=== PATIENT | male | born 1955 | race Caucasian/White ===

== ENCOUNTER → 2017-09-05 | Outpatient (CLI) | payer OTHER ==
--- NOTE | 2017-09-05 14:14 | PN ---
PROGRESS NOTE A 61-year-old male patient coming in for a followup regarding obstructive sleep apnea. The patient was last seen in our [facility] in April of 2014. The patient has moderate severe obstructive sleep apnea with an AHI of 27, and patient is currently on CPAP pressure of 12 cm of water. His treatment has been successful over the past 4 years and the patient has not had any major difficulties utilizing his CPAP. His weight has remained stable at 209 pounds and his current BMI is 35.3. He is utilizing CPAP without any major difficulties. He is using a Mirage Quattro full-face mask and he is looking for alternatives. He is still benefitting from the treatment. He is averaging around 6 hours and 54 minutes of CPAP use per night. He is waking up refreshed and alert during the day. No major hypersomnia or sleepiness during the day. Does not fall asleep while driving or while doing routine day-to-day activities. His current Section score is at 3. REVIEW OF SYSTEMS: A 12-point review of system was done. The patient denies any recent weight gain, weight loss. No fever, chills or night sweats. No headaches. No change in mental status. No cough, sputum production. No nausea, vomiting or diarrhea. No abdominal pain. No dysuria, frequency or urgency. No dyspnea, no swelling in the lower extremities. No anxiety or depression. No sleepwalking or sleep talking. No heartburn. PHYSICAL EXAMINATION: BP is 136/81, pulse 73, respiratory rate is 16, temp 98.4 saturation 94% on room air. Weight is 209, height 5, 4, neck size 18 inches, Section score 3, BMI 35.3. GENERAL APPEARANCE: Calm, comfortable. HEAD: Atraumatic, normocephalic. NECK: Supple. There is no JVD. No goiter. No neck masses. Mallampati class IV. LUNGS: Clear to auscultation. HEART: Sounds regular rate and rhythm. Normal S1, S2. No S3. No murmurs. ABDOMEN: Soft, nontender. No organomegaly. EXTREMITIES: No edema. No cyanosis or clubbing. NEUROLOGIC: Patient is alert and oriented x3. There is no focal neurological deficits at this point. PSYCHIATRIC: Negative for any anxiety or depression. SKIN: Negative for any wounds or ulceration. IMPRESSION: 1. Obstructive sleep apnea, moderately severe, currently on CPAP with a pressure of 12 cm of water. The patient continues to receive successful treatment. 2. His mask interface needs to be upgraded. PLAN: 1. Continue CPAP therapy at same level of pressure. 2. Provide the patient an AirFit F20 small-sized full-face mask. 3. Renewal orders were given regarding his supplies. 4. See me back in a year's time or earlier if needed. MMODL / IJN: [id number] /
== END | disposition home or self-care (01) ==
LOC: SLEEP 11:48
PROVIDERS: ATTEND Internal Medicine Critical Care Medicine
DX: G47.33 Obstructive sleep apnea (adult) (pediatric) (principal); Z99.89 Dependence on other enabling machines and devices
CPT/HCPCS: 99211

== ENCOUNTER 2017-09-09 18:44 | Emergency (ER) | payer OTHER ==
[2017-09-09 20:14] LABS: Appearance,Urine Clear (Clear); Bilirubin,Urine Negative (Negative); Blood,Urine Negative (Negative); Color,Urine Light Yellow; Glucose,Urine (UA) Negative (Negative); Ketones,Urine Negative (Negative); Leukocyte Esterase,Urine Negative (Negative); Nitrite,Urine Negative (Negative); PH, Urine 6.5 (5.0-8.0); Protein,Urine Negative (Negative); Specific Gravity,Urine 1.004 (1.001-1.035); Urobilinogen,Urine <2.0 mg/dL (<2.0)
[2017-09-09 20:17] LABS: Basophils % (A) 0 %; Eosinophils # (A) 0.1 k/uL (0-0.7); Eosinophils % (A) 0 %; HCT 41.2 % (39.0-53.0); HGB 13.7 gm/dL (13.0-17.5); Lymphocytes % (A) 6 %; MCH 28.2 pg (25.0-35.0); MCHC 33.3 g/dL (31.0-37.0); MCV 84.7 fL (80.0-100.0); Mean Platelet Volume 6.9; Monocytes # (A) 0.6 k/uL (0-1.0); Monocytes % (A) 3 %; Neutrophils # (A) 16.5 k/uL (1.3-7.7); Neutrophils % (A) 90 %; Platelet Count 218 k/uL (150-450); RBC 4.86 m/uL (4.30-5.90); RDW 13.4 % (11.5-15.5); WBC 18.4 k/uL (3.8-10.6)
[2017-09-09 20:24] LABS: ALT 28 U/L (21-72); AST 21 U/L (17-59); Alkaline Phosphatase 73 U/L (38-126); Anion Gap 11 mmol/L; Blood Urea Nitrogen 11 mg/dL (9-20); Carbon Dioxide 31 mmol/L (22-30); Chloride 94 mmol/L (98-107); Glucose 99 mg/dL (74-99); Potassium 4.6 mmol/L (3.5-5.1); Sodium 136 mmol/L (137-145); Total Bilirubin 0.9 mg/dL (0.2-1.3); Total Protein 7.2 g/dL (6.3-8.2)
--- NOTE | 2017-09-09 20:29 | XR ---
EXAMINATION TYPE: XR chest 2V DATE OF EXAM: 09/09/2017 COMPARISON: NONE HISTORY: Difficulty in breathing. TECHNIQUE: Frontal and lateral views of the chest are obtained. FINDINGS: Underlying emphysematous change is felt present. There is no focal air space opacity, pleu ral effusion, or pneumothorax seen. The cardiac silhouette size is within normal limits. The osseo us structures are intact. IMPRESSION: Chronic emphysematous change without acute pulmonary process.
[2017-09-09 20:30] LABS: INR 1.1 (<1.2); Partial Thromboplastin Time 24.8 sec (22.0-30.0); Prothrombin Time 10.8 sec (9.0-12.0)
[2017-09-09 20:35] LABS: Creatine Kinase 76 U/L (55-170)
[2017-09-09 20:47] LABS: Creatine Kinase MB 0.7 ng/mL (0.0-2.4); Troponin I <0.012 ng/mL (0.000-0.034)
[2017-09-09] MEDS ORDERED: cefTRIAXone 2,000 MG in SODIUM CHLORIDE 0.9% 100 ML IVPB STA (21:42)
[2017-09-09] MEDS ORDERED: cefTRIAXone IN SWFI 2,000 MG/20 ML SYRINGE IVP STA (21:43)
[2017-09-09] MEDS ORDERED: RX INFO: IV CONTRAST WAS GIVEN 1 EACH MISC MISCELLANE PRN (21:49)
--- NOTE | 2017-09-09 22:02 | ED ---
SOB HPI - General Chief Complaint: Shortness of Breath Stated Complaint: SOB/Difficulty Breathing Time Seen by Provider: 09/09/17 19:03 Source: patient Mode of arrival: wheelchair Limitations: no limitations - History of Present Illness Initial Comments: 9 years old gentleman comes in with a fever of 100.8 she said he bit short winded he got some groceries out of 4 and had a stress test done now he is being followed up with the cardiac cath and on he said he has been drinking plenty of fluids he felt he was dehydrated and is also was put on a Lasixcomplaining about some fluid accumulation or swelling of his lower extremities. He denies any headaches no chest pain is short-winded no abdominal pain no frequency urgency dysuria no symptoms of TIA or CVA - Related Data Home Medications Medication Instructions Recorded Confirmed Albuterol Sulfate [Proair Hfa] 1 - 2 puff INHALATION Q6HR PRN 09/07/17 09/09/17 Aspirin 81 mg PO DAILY 09/07/17 09/09/17 Furosemide [Lasix] 20 mg PO DAILY 09/07/17 09/09/17 Metoprolol Tartrate [Lopressor] 100 mg PO DAILY 09/07/17 09/09/17 Simvastatin [Zocor] 20 mg PO DAILY 09/07/17 09/09/17 Tiotropium Br/Olodaterol HCl 1 puff INHALATION RT-BID PRN 09/07/17 09/09/17 [Stiolto Respimat Inhal Prentiss] Verapamil Sr [Isoptin Sr] 240 mg PO DAILY 09/07/17 09/09/17 Previous Rx's Medication Instructions Recorded Amoxicillin/Potassium Clav 1 tab PO Q12HR #20 tab 09/09/17 [Augmentin 875-125 Tablet] Allergies Allergy/AdvReac Type Severity Reaction Status Date / Time No Known Allergies Allergy Verified 09/09/17 19:16 Review of Systems ROS Statement: Those systems with pertinent positive or pertinent negative responses have been documented in the HPI. ROS Other: All systems not noted in ROS Statement are negative. Past Medical History Past Medical History: Asthma, Heart Failure, COPD, Hyperlipidemia, Hypertension History of Any Multi-Drug Resistant Organisms: None Reported Past Surgical History: Appendectomy, Hernia Repair Additional Past Surgical History / Comment(s): vasectomy Past Psychological History: Anxiety Smoking Status: Former smoker Past Alcohol Use History: Rare Past Drug Use History: None Reported General Exam - General Exam Comments Initial Comments: General: The patient is awake and alert, in no distress, and does not appear acutely ill. Skin: Skin is warm and dry and no rashes or lesions are noted. Eye: Pupils are equal, round and reactive to light, extra-ocular movements are intact; there is normal conjunctiva bilaterally. Ears, nose, mouth and throat: There are moist mucous membranes and no oral lesions. Neck: The neck is supple, there is no tenderness or JVD. Cardiovascular: There is a regular rate and rhythm. No murmur, rub or gallop is appreciated. Respiratory: To auscultation bilateral, no wheezing no rhonchi no distress respiratory wilkerson noticed Gastrointestinal: Soft, non-distended, non-tender abdomen without masses or organomegaly noted. There is no rebound or guarding present. Bowel sounds are unremarkable. Back: There is no tenderness to palpation in the midline. There is no obvious deformity. Musculoskeletal: Normal ROM, no tenderness, noticed some +1 edema around both ankles Neurological: CN II-XII intact, Cranial nerves III through XII are intact. There are no obvious motor or sensory deficits. Coordination appears grossly intact. Speech is normal. Psychiatric: Cooperative, appropriate mood & affect, normal judgment. Limitations: no limitations Course Vital Signs 09/09/17 09/09/17 09/09/17 18:49 20:00 20:20 Temperature 100.8 F H Pulse Rate 101 H 96 Respiratory 20 18 18 Rate Blood Pressure 139/87 125/71 O2 Sat by Pulse 92 L 95 Oximetry 09/09/17 21:46 Temperature Pulse Rate 96 Respiratory 17 Rate Blood Pressure 124/71 O2 Sat by Pulse 98 Oximetry KG is sinus tachycardia with a first-degree heart block ventricular rate is 1 or 2 ME interval is 210 QRS duration is 90 QT/QTC 354/461 review of this EKG does not reveal any ST elevation or ST depression noticed some artifact in lead V4 CT angiogram was reviewed, there is no pulmonary embolism considering his positive stress test I offered him admission and observation and will continue the antibiotics of the cultures come back considering his fever and elevated white count patient prefers to go home on antibiotics, he said he is going to stay at her daughter's house she'll keep an eye on him if he needs to come back to come back any or proceed was with his cardiac cath on , respecting patient's wishes on the report him on Augmentin 1 g twice daily for 10 days - Reevaluation(s) Reevaluation #1: She was reassessed at 20/200 at that point he said now he is feeling pain with a deep breaths which he didn't mention that in he said he is short-winded more now and then he was before, at that point CT angiogenesis was ordered to rule out pulmonary embolism and has been running fever, bloody urine cultures were done and Rocephin [address] angios ordered as well 09/09/17 22:15 Medical Decision Making - Lab Data Result diagrams: 09/09/17 19:50 09/09/17 19:50 Lab Results 09/09/17 09/09/17 09/09/17 Range/Units 19:50 19:50 19:50 WBC 18.4 H (3.8-10.6) k/uL RBC 4.86 (4.30-5.90) m/uL Hgb 13.7 (13.0-17.5) gm/dL Hct 41.2 (39.0-53.0) % MCV 84.7 (80.0-100.0) fL MCH 28.2 (25.0-35.0) pg MCHC 33.3 (31.0-37.0) g/dL RDW 13.4 (11.5-15.5) % Plt Count 218 (150-450) k/uL Neutrophils % 90 % Lymphocytes % 6 % Monocytes % 3 % Eosinophils % 0 % Basophils % 0 % Neutrophils # 16.5 H (1.3-7.7) k/uL Lymphocytes # 1.0 (1.0-4.8) k/uL Monocytes # 0.6 (0-1.0) k/uL Eosinophils # 0.1 (0-0.7) k/uL Basophils # 0.0 (0-0.2) k/uL PT (9.0-12.0) sec INR (<1.2) APTT (22.0-30.0) sec Sodium 136 L (137-145) mmol/L Potassium 4.6 (3.5-5.1) mmol/L Chloride 94 L (98-107) mmol/L Carbon Dioxide 31 H (22-30) mmol/L Anion Gap 11 mmol/L BUN 11 (9-20) mg/dL Creatinine 0.80 (0.66-1.25) mg/dL Est GFR (CKD-EPI)AfAm >90 (>60 ml/min/1.73 sqM) Est GFR (CKD-EPI)NonAf >90 (>60 ml/min/1.73 sqM) Glucose 99 (74-99) mg/dL Calcium 9.0 (8.4-10.2) mg/dL Total Bilirubin 0.9 (0.2-1.3) mg/dL AST 21 (17-59) U/L ALT 28 (21-72) U/L Alkaline Phosphatase 73 (38-126) U/L Total Creatine Kinase 76 (55-170) U/L CK-MB (CK-2) 0.7 (0.0-2.4) ng/mL CK-MB (CK-2) Rel Index 0.9 Troponin I <0.012 (0.000-0.034) ng/mL NT-Pro-B Natriuret Pep pg/mL Total Protein 7.2 (6.3-8.2) g/dL Albumin 4.0 (3.5-5.0) g/dL Urine Color Urine Appearance (Clear) Urine pH (5.0-8.0) Ur Specific [place] (1.001-1.035) Urine Protein (Negative) Urine Glucose (UA) (Negative) Urine Ketones (Negative) Urine Blood (Negative) Urine Nitrite (Negative) Urine Bilirubin (Negative) Urine Urobilinogen (<2.0) mg/dL Ur Leukocyte Esterase (Negative) 09/09/17 09/09/17 09/09/17 Range/Units 19:50 19:59 20:00 WBC (3.8-10.6) k/uL RBC (4.30-5.90) m/uL Hgb (13.0-17.5) gm/dL Hct (39.0-53.0) % MCV (80.0-100.0) fL MCH (25.0-35.0) pg MCHC (31.0-37.0) g/dL RDW (11.5-15.5) % Plt Count (150-450) k/uL Neutrophils % % Lymphocytes % % Monocytes % % Eosinophils % % Basophils % % Neutrophils # (1.3-7.7) k/uL Lymphocytes # (1.0-4.8) k/uL Monocytes # (0-1.0) k/uL Eosinophils # (0-0.7) k/uL Basophils # (0-0.2) k/uL PT 10.8 (9.0-12.0) sec INR 1.1 (<1.2) APTT 24.8 (22.0-30.0) sec Sodium (137-145) mmol/L Potassium (3.5-5.1) mmol/L Chloride (98-107) mmol/L Carbon Dioxide (22-30) mmol/L Anion Gap mmol/L BUN (9-20) mg/dL Creatinine (0.66-1.25) mg/dL Est GFR (CKD-EPI)AfAm (>60 ml/min/1.73 sqM) Est GFR (CKD-EPI)NonAf (>60 ml/min/1.73 sqM) Glucose (74-99) mg/dL Calcium (8.4-10.2) mg/dL Total Bilirubin (0.2-1.3) mg/dL AST (17-59) U/L ALT (21-72) U/L Alkaline Phosphatase (38-126) U/L Total Creatine Kinase (55-170) U/L CK-MB (CK-2) (0.0-2.4) ng/mL CK-MB (CK-2) Rel Index Troponin I (0.000-0.034) ng/mL NT-Pro-B Natriuret Pep 616 pg/mL Total Protein (6.3-8.2) g/dL Albumin (3.5-5.0) g/dL Urine Color Light Yellow Urine Appearance Clear (Clear) Urine pH 6.5 (5.0-8.0) Ur Specific [place] 1.004 (1.001-1.035) Urine Protein Negative (Negative) Urine Glucose (UA) Negative (Negative) Urine Ketones Negative (Negative) Urine Blood Negative (Negative) Urine Nitrite Negative (Negative) Urine Bilirubin Negative (Negative) Urine Urobilinogen <2.0 (<2.0) mg/dL Ur Leukocyte Esterase Negative (Negative) Critical Care Time Total Critical Care Time: 30 Critical Care Time: CV 1 years old male had a fever presented with shortness of breath then now his symptoms change bed pain with deep breaths and he has a history of coronary artery disease with a positive stress test considering all these comorbidities we did the CT angios CT angios negative but he still short winded and with his ischemic heart disease on a per min the hospital although he also has elevated white count is very early pneumonia which is not visible on the chest x-ray or a cyst sepsis making him making him feel weak or short winded or ST C ischemic heart disease he is noted be on antibiotics every The cultures back and now will be admitted to Dr. Redmond's service with a cardiology consult Disposition Clinical Impression: Shortness of breath, Leukocytosis Disposition: HOME SELF-CARE Condition: Good Instructions: Dyspnea (ED) Prescriptions: Amoxicillin/Potassium Clav [Augmentin 875-125 Tablet] 1 tab PO Q12HR #20 tab Referrals: Mathew Martinez MD [Primary Care Provider] - 1-2 days
--- NOTE | 2017-09-09 22:54 | CT ---
EXAMINATION TYPE: CT chest angio for PE DATE OF EXAM: 09/09/2017 COMPARISON: NONE HISTORY: Shortness of breath. CT DLP: 487.5 mGycm Automated exposure control for dose reduction was used. CONTRAST: CT Chest for pulmonary embolism performed with with IV Contrast, patient injected with 64 mL of Isovu e 370. FINDINGS: There are 3-D post processed images. There is mild increased interstitial density at the lung bases. There is no evidence of a pulmonary m ass. Heart size is normal. There is no pericardial effusion. There is no pleural effusion. There is a small hiatal hernia. I see no filling defects in the pulmonary arteries. There is no mediastinal adenopathy. There are no hilar masses. There are mediastinal and bronchial lymph nodes that measure less than 1 cm. The bony t horax is intact. Thoracic aorta appears normal without evidence of aneurysm or dissection. Ascending aorta measures 3.5 cm. IMPRESSION: No evidence of pulmonary embolism. Minimal fibrotic changes at the lung bases.
[2017-09-09 23:56] VITALS: BP 124/77; PULSE 100; RESP 20; TEMP 99.4
== END 2017-09-09 23:59 | disposition home or self-care (01) ==
LOC: EC 18:44
DX: D72.829 Elevated white blood cell count, unspecified (principal); I25.9 Chronic ischemic heart disease, unspecified; R06.02 Shortness of breath; E78.5 Hyperlipidemia, unspecified; I25.10 Atherosclerotic heart disease of native coronary artery without angina pectoris; I11.0 Hypertensive heart disease with heart failure; I50.9 Heart failure, unspecified; Z87.891 Personal history of nicotine dependence; Z79.82 Long term (current) use of aspirin; Z79.899 Other long term (current) drug therapy
CPT/HCPCS: 36415; 93005; 83880; 80053; 82550; 82553; 84484; 85025; 85610; 85730; 81003; 87040; 87086; 71046; 71275; 99285; 96374; J0696; Q9967

== ENCOUNTER 2017-09-14 09:12 | Day surgery (SDC) | payer OTHER ==
[2017-09-07 14:28] VITALS: BMI 34.5
[~2017-09-14 09:12] MED LIST: ALPRAZolam 0.25 MG TAB PO PRN; ALPRAZolam 0.5 MG TAB PO PRN; ASPIRIN 325 MG TAB PO STA; ATORVASTATIN 80 MG TAB PO STA; NITROGLYCERIN SL TABS 0.4 MG TAB SUBLINGUAL PRN; SODIUM CHLORIDE 0.9% 1,000 ML in EMPTY BAG 1 BAG IV ONE
[2017-09-14 09:58] VITALS: TEMP 97.6
[2017-09-14 10:18] LABS: Basophils % (A) 1 %; Eosinophils # (A) 0.3 k/uL (0-0.7); Eosinophils % (A) 4 %; HCT 43.3 % (39.0-53.0); HGB 14.3 gm/dL (13.0-17.5); Lymphocytes # (A) 1.3 k/uL (1.0-4.8); Lymphocytes % (A) 20 %; MCH 28.4 pg (25.0-35.0); Monocytes # (A) 0.4 k/uL (0-1.0); Monocytes % (A) 6 %; Neutrophils # (A) 4.4 k/uL (1.3-7.7); Neutrophils % (A) 68 %; Platelet Count 260 k/uL (150-450); RBC 5.03 m/uL (4.30-5.90); RDW 13.5 % (11.5-15.5); WBC 6.5 k/uL (3.8-10.6)
[2017-09-14] MEDS ORDERED: LIDOCAINE 2% INJ 20 MG/ML (20 ML MDV) ONE (11:05)
[2017-09-14] MEDS ORDERED: MIDAZOLAM 2 MG/2 ML VIAL ONE (11:05)
[2017-09-14] MEDS ORDERED: VERAPAMIL 2.5 MG/ML 2 ML AMP ONE (11:05)
[2017-09-14] MEDS ORDERED: MIDAZOLAM 2 MG/2 ML VIAL IVP ONE (11:30)
[2017-09-14] MEDS ORDERED: HEPARIN SODIUM 1,000 UN/ML (10ML VL) ONE (11:32)
[2017-09-14] MEDS ORDERED: LIDOCAINE 2% INJ 20 MG/ML SQ ONE (11:33)
[2017-09-14] MEDS: VERAPAMIL SYRINGE (5 MG/10 ML) INTRAARTER ONE ×2 (11:34→11:49)
[2017-09-14] MEDS ORDERED: IOPAMIDOL-370 125ML BTL INJ ONE (11:50)
[2017-09-14] MEDS ORDERED: IOPAMIDOL-300 50ML BTL INJ ONE (11:50)
[2017-09-14] MEDS ORDERED: RX INFO: IV CONTRAST WAS GIVEN 1 EACH MISC MISCELLANE PRN (12:02)
[2017-09-14] MEDS ORDERED: SODIUM CHLORIDE 0.9% 1,000 ML IV SCH (12:15)
--- NOTE | 2017-09-14 12:36 | CC ---
CARDIAC CATHETERIZATION REPORT DATE OF SERVICE: 09/14/2017 PERFORMING PHYSICIAN: Marc Henson MD, Education Department Chair. PROCEDURE PERFORMED: 1. Selective right and left coronary angiogram. 2. Left heart catheterization. 3. Left ventriculography. INDICATION: This is a pleasant 61-year-old gentleman who was experiencing exertional dyspnea and underwent a CT scan of the chest and that showed heavily calcified coronary arteries. Because of that, he was referred to see me. I did a stress test on the gentleman and that revealed ischemia. Heart catheterization was recommended to rule out any severe underlying coronary artery disease. APPROACH: Right radial artery. COMPLICATION: None. LEVEL OF SEDATION: Moderate with sedation length of 21 minutes. PROCEDURE DESCRIPTION: After obtaining an informed consent, the patient was brought to the [facility]. The right radial artery was cannulated using micropuncture technique, the micropuncture wire passed easily, then I placed a 6-Macanese sheath in the right radial artery. After that, I gave the patient 2 mg of verapamil IA and 10,000 units of heparin IV. Subsequently, I did selective right and left coronary angiogram using JR4 and JL3.5 catheters. Left heart catheterization was performed using 6-Macanese pigtail catheter. After that, I did left ventriculography using a pigtail catheter as well. The procedure was completed without any complication. SELECTIVE CORONARY ANGIOGRAM: 1. The right coronary artery is a large caliber vessel and it is a dominant vessel. The proximal RCA is calcified. It does have mild disease only. The mid RCA is 100% occluded and reconstitutes in the midportion. After the reconstitution, the RCA becomes small to medium caliber vessel with severe disease distally as well. 2. The left main is calcified with mild disease only. It bifurcates into left circumflex and left anterior descending artery. 3. The left circumflex is a large caliber vessel and it is a nondominant vessel. The proximal circ has a lesion appeared to be in the range of 50%. The mid circ appeared to have mild disease only and the circ distally appeared to be angiographically normal. 4. The LAD, the proximal LAD after the bifurcation of a large diag is again chronically occluded. It reconstitutes distally as well. The LAD in the proximal portion gives rise into a large diagonal branch which has mild disease only. Extensive [id number] collaterals were seen filling the RCA distally. HEMODYNAMICS: The left ventricular end-diastolic pressure was about 20 mmHg and no gradient was identified across the aortic valve. Left ventriculography was performed in the BRAUN projection and using a power injection. The left ventricular systolic function is mildly impaired with EF about 45%-50% with global hypokinesia. CONCLUSION: 1. Heavily calcified right and left coronary systems. 2. Chronic total occlusion of the mid right coronary artery. 3. Intermediate disease involving the left circumflex. 4. Chronic total occlusion of the left anterior descending artery as well in the proximal portion. 5. Extensive iycl-dh-ryikp collaterals seen filling the right coronary artery distally. 6. Mildly impaired left ventricular function with ejection fraction between 40% to 45% with global hypokinesia. POSTPROCEDURE MANAGEMENT: 1. Maximize medical treatment. 2. Follow up with the patient. 3. Obtain a consult from Cardiothoracic Surgeon for the evaluation of CABG. DIANA / DAMIÁN: [id number] /
--- NOTE | 2017-09-14 12:42 | LTR ---
DATE OF SERVICE: 09/14/2017 RE: Henry Robles Dear Dr. Martinez; Mr. Henry Robles underwent a heart catheterization and that revealed severe 2- vessel coronary artery disease with chronic total occlusion of the RCA as well as chronic total occlusion of the LAD. I am going to obtain a consult from cardiothoracic surgeon for the evaluation of CABG. If he is turned down to be not a surgical candidate, I will consider doing percutaneous coronary intervention. I want to thank you for allowing me to participate in his care and please do not hesitate to call if you have any question or concern. Sincerely, MD DIANA Umaña / RUSSELN: [id number] /
[2017-09-14 14:47] VITALS: RESP 18
[2017-09-14 17:10] VITALS: BP 142/91
[2017-09-14 17:12] VITALS: PULSE 82
== END 2017-09-14 16:59 | disposition home or self-care (01) ==
LOC: CATHCVL 09:12
PROVIDERS: ATTEND Internal Medicine Interventional Cardiology
DX: I25.110 Atherosclerotic heart disease of native coronary artery with unstable angina pectoris (principal); I25.82 Chronic total occlusion of coronary artery; R94.39 Abnormal result of other cardiovascular function study; E78.00 Pure hypercholesterolemia, unspecified; I10 Essential (primary) hypertension; J44.9 Chronic obstructive pulmonary disease, unspecified; Z82.49 Family history of ischemic heart disease and other diseases of the circulatory system; Z79.82 Long term (current) use of aspirin; Z79.899 Other long term (current) drug therapy; Z87.891 Personal history of nicotine dependence
CPT/HCPCS: 93458; 85025; C1894; J2001; J2250; J1644; Q9967 ×2

== ENCOUNTER → 2017-10-03 | Outpatient (CLI) | payer OTHER ==
[2017-10-03 09:48] LABS: HCT 44.7 % (39.0-53.0); HGB 14.6 gm/dL (13.0-17.5); MCH 28.1 pg (25.0-35.0); MCHC 32.6 g/dL (31.0-37.0); MCV 86.4 fL (80.0-100.0); Mean Platelet Volume 7.1; Platelet Count 213 k/uL (150-450); RBC 5.18 m/uL (4.30-5.90); RDW 13.6 % (11.5-15.5); WBC 5.9 k/uL (3.8-10.6)
[2017-10-03 09:51] LABS: Appearance,Urine Clear (Clear); Bilirubin,Urine Negative (Negative); Blood,Urine Negative (Negative); Color,Urine Light Yellow; Glucose,Urine (UA) Negative (Negative); Ketones,Urine Negative (Negative); Leukocyte Esterase,Urine Negative (Negative); Nitrite,Urine Negative (Negative); Protein,Urine Negative (Negative); Specific Gravity,Urine 1.005 (1.001-1.035); Urobilinogen,Urine <2.0 mg/dL (<2.0)
[2017-10-03 09:56] LABS: Partial Thromboplastin Time 24.8 sec (22.0-30.0); Prothrombin Time 10.2 sec (9.0-12.0)
[2017-10-03 10:17] LABS: ALT 33 U/L (21-72); AST 22 U/L (17-59); Albumin 4.2 g/dL (3.5-5.0); Alkaline Phosphatase 84 U/L (38-126); Anion Gap 13 mmol/L; Blood Urea Nitrogen 14 mg/dL (9-20); Calcium 8.9 mg/dL (8.4-10.2); Carbon Dioxide 31 mmol/L (22-30); Chloride 103 mmol/L (98-107); Cholesterol 111 mg/dL (<200); Glucose 96 mg/dL (74-99); HDL Cholesterol 48 mg/dL (40-60); LDL Cholesterol,Calculated 49 mg/dL (0-99); Magnesium 1.8 mg/dL (1.6-2.3); Potassium 4.7 mmol/L (3.5-5.1); Sodium 147 mmol/L (137-145); Total Bilirubin 0.5 mg/dL (0.2-1.3); Total Protein 7.1 g/dL (6.3-8.2); Triglycerides 72 mg/dL (<150)
[2017-10-03 16:12] LABS: Hepatitis A Antibody IgM Non-Reactive (Non-Reactive); Hepatitis B Core IgM Non-Reactive (Non-Reactive)
[2017-10-03 20:53] LABS: Hemoglobin A1C 5.4 % (4.0-6.0)
== END | disposition home or self-care (01) ==
LOC: LABPAT 08:33
PROVIDERS: ATTEND Surgery
DX: Z01.812 Encounter for preprocedural laboratory examination (principal)
CPT/HCPCS: 80053; 80061; 80074; 81003; 83036; 83735; 84443; 85027; 85610; 85730; 86850; 86900; 86901; 86920; 87070; 87086; 93005; 93922; 93970

== ENCOUNTER 2017-10-16 05:28 | Inpatient (IN) | payer OTHER ==
[~2017-10-16 05:28] MED LIST changes: -ALPRAZolam 0.25 MG TAB PO PRN; -ALPRAZolam 0.5 MG TAB PO PRN; -ASPIRIN 325 MG TAB PO STA; -ATORVASTATIN 80 MG TAB PO STA; +LACTATED RINGERS 1,000 ML IV SCH; +MIDAZOLAM 2 MG/2 ML VIAL IV PRN; +MUPIROCIN 2% OINT 22 GM TUBE NASAL ONE; -NITROGLYCERIN SL TABS 0.4 MG TAB SUBLINGUAL PRN; -SODIUM CHLORIDE 0.9% 1,000 ML in EMPTY BAG 1 BAG IV ONE
[2017-10-16] MEDS ORDERED: PHENYLEPHRINE-0.9% NACL SYG 1 MG/10 ML SYRINGE IV ONE (06:00)
[2017-10-16] MEDS ORDERED: CALCIUM CHLORIDE 100 MG/ML 10 ML SYRINGE IV ONE (06:00)
[2017-10-16] MEDS ORDERED: LACTATED RINGERS 1,000 ML IV ONE (06:00)
[2017-10-16] MEDS ORDERED: DEXTROSE 5% IN WATER 1,000 ML with POTASSIUM CHLORIDE 110 MEQ, MAGNESIUM SULFATE 16 MEQ... IV ONE ×5 (06:00)
[2017-10-16] MEDS ORDERED: PHENYLEPHRINE 40 MG in SODIUM CHLORIDE 0.9% 250 ML IV ONE (06:00)
[2017-10-16] MEDS ORDERED: METOPROLOL TARTRATE 12.5 MG TAB PO ONE (06:00)
[2017-10-16] MEDS ORDERED: NOREPINEPHRIN 4 MG-0.9% NS PMX 4 MG/250 ML ML IV ONE (06:00)
[2017-10-16] MEDS ORDERED: PROTAMINE SULFATE 250 MG in EMPTY BAG 1 BAG IV ONE (06:00)
[2017-10-16] MEDS ORDERED: ALBUMIN HUMAN 5% 500 ML IVPB ONE (06:00)
[2017-10-16] MEDS ORDERED: ceFAZolin 2,000 MG in SODIUM CHLORIDE 0.9% 30 ML IVPB ONE ×4 (06:00)
[2017-10-16] MEDS ORDERED: HEPARIN SODIUM 1,000 UN/ML (10ML VL) IV ONE (06:00)
[2017-10-16] MEDS ORDERED: NITROGLYCERIN-D5W PMX 25 MG/250 ML BTL IV ONE (06:00)
[2017-10-16] MEDS ORDERED: HEPARIN SODIUM,PORCINE 5,000 UNIT in SODIUM CHLORIDE 0.9% 500 ML IV ONE (06:00)
[2017-10-16] MEDS ORDERED: SODIUM CHLORIDE 0.9% 1,000 ML IV ONE (06:00)
[2017-10-16] MEDS ORDERED: CLEVIDIPINE BUTYRATE 25 MG in EMPTY BAG 1 BAG IV ONE (06:00)
[2017-10-16] MEDS ORDERED: MANNITOL 25% 12.5 GM/50 ML VIAL IV ONE (06:00)
[2017-10-16] MEDS ORDERED: SODIUM BICARB 8.4% 50 ML SYR (1 MEQ/ML) IV ONE (06:00)
[2017-10-16] MEDS ORDERED: ASPIRIN 325 MG TAB PO ONE (06:00)
[2017-10-16] MEDS ORDERED: DEXTROSE 5% IN WATER 1,000 ML with POTASSIUM CHLORIDE 25 MEQ, SODIUM CHLORIDE 2.5MEQ/ML... IRRIGATION ONE ×6 (06:00)
[2017-10-16] MEDS ORDERED: MAGNESIUM SULFATE MG 500 MG/ML VIAL IV ONE (06:00)
[2017-10-16] MEDS ORDERED: CHLORHEXIDINE GLUCONATE 15 ML CUP MUCOUS MEM ONE (06:00)
[2017-10-16] MEDS ORDERED: INSULIN REGULAR 100 UNIT in SODIUM CHLORIDE 0.9% 100 ML IV ONE (06:00)
[2017-10-16] MEDS ORDERED: TRANEXAMIC ACID 2,000 MG in SODIUM CHLORIDE 0.9% 180 ML IV ONE (06:00)
[2017-10-16] MEDS ORDERED: ATORVASTATIN 10 MG TAB PO ONE (06:00)
[2017-10-16] MEDS ORDERED: PROTAMINE SULFATE 10 MG/ML 25 ML VIAL IV ONE ×2 (06:00→08:03)
[2017-10-16] MEDS ORDERED: ALBUMIN HUMAN 25% 50 ML IV ONE (06:00)
[2017-10-16] MEDS ORDERED: PAPAVERINE 360 MG in SODIUM CHLORIDE 0.9% 90 ML IV ONE (06:00)
[2017-10-16] MEDS ORDERED: PROPOFOL 1,000 MG/100 ML VIAL IV ONE (06:00)
[2017-10-16] MEDS ORDERED: NITROGLYCERIN-D5W PMX 50 MG in DEXTROSE/WATER 1 250ML.BAG IV ONE (06:00)
[2017-10-16] MEDS ORDERED: ELECTROLYTE-R (PH 7.4) 1,000 ML IV.SOLN IV ONE (08:03)
[2017-10-16] MEDS ORDERED: ALBUMIN HUMAN 5% 500 ML VIAL IVPB ONE (08:03)
[2017-10-16] MEDS ORDERED: HEPARIN SODIUM,PORCINE 5,000 UNIT/ML 1 ML VIAL ONE (08:03)
[2017-10-16] MEDS ORDERED: VECURONIUM 10 MG VIAL IV ONE (08:03)
[2017-10-16] MEDS ORDERED: LACTATED RINGERS 1,000 ML BAG IV ONE (08:03)
[2017-10-16] MEDS ORDERED: fentaNYL (PF) 50 MCG/ML 50 ML VIAL ONE (08:03)
[2017-10-16] MEDS ORDERED: PROPOFOL 10 MG/ML 20 ML VIAL IV ONE (08:03)
[2017-10-16] MEDS ORDERED: MAGNESIUM SULFATE 4 MEQ/ML 2 ML VIAL ONE (08:03)
[2017-10-16] MEDS ORDERED: TRANEXAMIC ACID 1,000 MG/10 ML VIAL ONE (08:03)
[2017-10-16] MEDS ORDERED: HEPARIN 10000 UNIT/ML IV ONE (08:03)
[2017-10-16] MEDS ORDERED: SODIUM CHLORIDE 0.9% 250 ML BAG ONE (08:03)
[2017-10-16] MEDS ORDERED: MIDAZOLAM 2 MG/2 ML VIAL ONE (08:03)
[2017-10-16] MEDS ORDERED: LIDOCAINE 2% SYG (PF) 100 MG/5 ML ONE (08:03)
[2017-10-16 08:36] LABS: ABG Base Excess 3.8 mmol/L; ABG HCO3 28 mmol/L (21-25); ABG PCO2 42 mmHg (35-45); ABG PH 7.44 (7.35-7.45); ABG PO2 401 mmHg (83-108); ABG Potassium Whole Blood 3.4 mmol/L (3.4-4.5); ABG Sodium Whole Blood 142 mmol/L (135-146); ABG TCO2 30 mmol/L (19-24)
[2017-10-16] MEDS: ceFAZolin 1,000 MG in SODIUM CHLORIDE 0.9% IRRIGATIO 1,000 ML IRRIGATION ONE ×3 (09:21→13:08)
[2017-10-16 10:44] LABS: ABG Base Excess 4.4 mmol/L; ABG HCO3 29 mmol/L (21-25); ABG PCO2 43 mmHg (35-45); ABG PH 7.44 (7.35-7.45); ABG PO2 386 mmHg (83-108); ABG Potassium Whole Blood 3.6 mmol/L (3.4-4.5); ABG Sodium Whole Blood 141 mmol/L (135-146); ABG TCO2 30 mmol/L (19-24)
[2017-10-16 11:18] LABS: ABG HCO3 27 mmol/L (21-25); ABG PCO2 45 mmHg (35-45); ABG PH 7.39 (7.35-7.45); ABG PO2 336 mmHg (83-108); ABG Potassium Whole Blood 3.5 mmol/L (3.4-4.5); ABG Sodium Whole Blood 138 mmol/L (135-146); ABG TCO2 29 mmol/L (19-24)
[2017-10-16 11:48] LABS: ABG Base Excess 3.2 mmol/L; ABG HCO3 27 mmol/L (21-25); ABG PCO2 38 mmHg (35-45); ABG PH 7.47 (7.35-7.45); ABG PO2 297 mmHg (83-108); ABG Potassium Whole Blood 4.4 mmol/L (3.4-4.5); ABG Sodium Whole Blood 138 mmol/L (135-146); ABG TCO2 28 mmol/L (19-24)
[2017-10-16 12:19] LABS: ABG Base Excess 2.5 mmol/L; ABG HCO3 27 mmol/L (21-25); ABG PCO2 44 mmHg (35-45); ABG PH 7.41 (7.35-7.45); ABG PO2 343 mmHg (83-108); ABG Potassium Whole Blood 4.2 mmol/L (3.4-4.5); ABG Sodium Whole Blood 139 mmol/L (135-146); ABG TCO2 29 mmol/L (19-24)
[2017-10-16 12:52] LABS: ABG Base Excess 1.8 mmol/L; ABG HCO3 27 mmol/L (21-25); ABG PCO2 47 mmHg (35-45); ABG PH 7.37 (7.35-7.45); ABG PO2 315 mmHg (83-108); ABG Potassium Whole Blood 4.6 mmol/L (3.4-4.5); ABG Sodium Whole Blood 138 mmol/L (135-146); ABG TCO2 29 mmol/L (19-24)
[2017-10-16 14:06] LABS: ABG Base Excess 0.6 mmol/L; ABG HCO3 27 mmol/L (21-25); ABG PCO2 51 mmHg (35-45); ABG PH 7.33 (7.35-7.45); ABG PO2 388 mmHg (83-108); ABG Potassium Whole Blood 3.8 mmol/L (3.4-4.5); ABG Sodium Whole Blood 142 mmol/L (135-146); ABG TCO2 28 mmol/L (19-24)
[2017-10-16] MEDS ORDERED: Magnesium Replacement Protocol 1 EACH MISC MISCELLANE PRN (14:32)
[2017-10-16] MEDS ORDERED: PROPOFOL 1,000 MG in EMPTY BAG 1 BAG IV SCH (14:32)
[2017-10-16] MEDS ORDERED: METOCLOPRAMIDE 5 MG/ML 2 ML VIAL IVP PRN (14:32)
[2017-10-16] MEDS ORDERED: ALBUMIN HUMAN 5% 250 ML in EMPTY BAG 1 BAG IVPB PRN (14:32)
[2017-10-16] MEDS ORDERED: Phosphorus Replacement Protoco 1 EACH MISC MISCELLANE PRN (14:32)
[2017-10-16] MEDS ORDERED: BENZOCAINE/MENTHOL LOZENG 1 EACH LOZENGE MUCOUS MEM PRN (14:32)
[2017-10-16] MEDS ORDERED: DEXTROSE 5% IN WATER 100 ML with AMIODARONE 150 MG IV PRN (14:32)
[2017-10-16] MEDS ORDERED: NITROGLYCERIN-D5W PMX 50 MG in DEXTROSE/WATER 1 250ML.BAG IV SCH (14:32)
[2017-10-16] MEDS ORDERED: Potassium Replacement Protocol 1 EACH MISC MISCELLANE PRN (14:32)
[2017-10-16] MEDS ORDERED: ONDANSETRON 4 MG/2 ML VIAL IVP PRN (14:32)
[2017-10-16] MEDS ORDERED: INSULIN REGULAR 100 UNIT in SODIUM CHLORIDE 0.9% 100 ML IV SCH (14:32)
[2017-10-16] MEDS ORDERED: CALCIUM CHLORIDE 1,000 MG in SODIUM CHLORIDE 0.9% 100 ML IV PRN (14:32)
[2017-10-16] MEDS ORDERED: MORPHINE SULFATE 4 MG/ML SYRINGE IVP PRN (14:32)
[2017-10-16 15:09] LABS: Glucose,Whole Blood 102 mg/dL (75-99)
[2017-10-16 15:24] LABS: INR 1.4 (<1.2); Partial Thromboplastin Time 39.5 sec (22.0-30.0); Prothrombin Time 12.9 sec (9.0-12.0)
--- NOTE | 2017-10-16 15:24 | OP ---
OPERATIVE REPORT DATE OF SURGERY: 10/16/2017. SURGEON: Dr. Kathy Odom. PARALEGAL SUPERVISOR: Lefty Beltran and Agustin SWENSON. PREOPERATIVE DIAGNOSES: 1. Triple-vessel coronary artery disease. Totally occluded right coronary artery and left anterior descending artery. 2. Mild to moderate left ventricular dysfunction. 3. Chronic obstructive pulmonary disease. 4. Asthma. 5. Hypertension. 6. Hyperlipidemia. POSTOPERATIVE DIAGNOSES: 1. Triple-vessel coronary artery disease. 2. Totally occluded right coronary artery and left anterior descending artery. 3. Mild to moderate left ventricular dysfunction. 4. Chronic obstructive pulmonary disease. 5. Asthma. 6. Hypertension. 7. Hyperlipidemia. PROCEDURE: 1. Triple coronary artery bypass grafting using the left internal mammary artery to the left anterior descending artery, reverse saphenous vein graft from the aorta to the posterior descending artery, reverse saphenous vein graft from the aorta to the 2nd obtuse marginal artery. 2. Endoscopic harvesting of left greater saphenous vein. 3. Intraoperative transesophageal echocardiogram and epiaortic scanning. 4. Intraoperative graft flow measurements using the SquareClock-Stim system. INDICATION FOR SURGERY: The patient is a 61-year-old gentleman who was worked up for worsening dyspnea on exertion with a stress test that showed anteior ischemia. He had a CTA for the coronary vessels that showed extensive calcification. Cardiac catheterization followed and that showed a totally occluded collateralized left anterior descending artery after the takeoff of a large diagonal artery that had mild disease in it and a totally occluded right coronary artery. The circumflex system showed what seems to be 50% stenosis proximally. However, in view of the extensive calcification, will plan on bypassing it. The STS risk was discussed with the patient and daughter. They understood and agreed to proceed. The patient was optimized by the Pulmonary service before surgery. DESCRIPTION OF THE PROCEDURE: The patient in the preoperative holding area, a right internal jugular [place]- Yael catheter and a right radial arterial line were placed. His PA pressure was normal and he had a normal acceptable cardiac index. Subsequently he was brought to the operating room where general endotracheal anesthesia was induced uneventfully. Longo catheter was inserted. He received 2 g of cefazolin intravenously. The chest, abdomen and both lower extremities were prepped and draped using ChloraPrep. Ioban was used to cover the skin. Transesophageal echocardiogram confirmed the preoperative finding of mild-to- moderate left ventricular function with inferior hypokinesia. There was no significant mitral regurgitation. A midline sternotomy was performed and had to use a minimal amount of bone wax on the manubrium as it was profusely bleeding at the end of the case. Otherwise, bone wax was used. Bone was reasonably dense. The left hemisternum was elevated and the left internal mammary artery was harvested in a semi- skeletonized fashion. The left pleura was intentionally opened in this process and was drained with a 28-Greek chest tube. There was an extensive amount of fat in the mediastinum and in the mammary pedicle. The right pleura remained intact. In the same setting, the left greater saphenous vein was harvested endoscopically from groin to above ankle level after administration of 1500 units of heparin. The branches were tied. The leg incisions were closed over a drain. Mediastinal fat was transected between 2 ties and epiaortic scanning revealed concentric intimal thickening but no protruding atheroma in the ascending aorta. Pericardium was opened in an inverted T-fashion and a pericardial cradle was created. There were adhesions between the anterior aorta and the pericardium, which were lysed with low-level Bovie. Finding included soft aorta and a normal size heart. There were fibrotic changes seen in the anterior wall and inferior wall, but no obvious thinning. After systemic heparinization and after placement of respective pledgeted pursestring aortic cannulation with a 21-Greek soft flow cannula, venous cannulation with a dual stage cannula via the right atrial appendage were performed. Antegrade as well as retrograde cardioplegia catheter were placed. Cardio pulmonary bypass was initiated and patient's temperature was allowed to drift down to 34 C. We looked at the targets and it appeared that the second obtuse marginal artery, the posterior descending artery and the mid left anterior descending artery would be the sites for bypass. The right coronary artery was heart up to its bifurcation. The left anterior descending artery was intramyocardial and had also fibrotic changes around it. It was found quite deep in the tissues. The mammary artery was clipped distally before its bifurcation and transected. Had an excellent pulsatile flow in it and was around 1.5 mm in diameter thin- walled. The vein appeared to be of good quality around 4 mm in diameters. The aorta was clamped and myocardial protection was achieved with initial dose of 500 mL of antegrade cold blood cardioplegia followed by 500 mL of retrograde cold blood cardioplegia. All subsequent doses were given retrograde as well as via the constructed vein graft to the posterior descending artery. This was done in an effort to ensure optimal right ventricular protection. The first distal anastomosis was between a segment of reverse saphenous vein graft and the posterior descending artery in its proximal to mid aspect. It was thin-walled around 1.5 mm in diameter. That vein as mentioned above was connected to the side arm of the retrograde cardioplegia delivery system. The second distal anastomosis was between another segment of vein and the second obtuse marginal artery. That artery was around 1.75 mm in diameter thin- walled. There was excellent flow into the vein graft. The third distal anastomosis was in the left internal mammary artery and the mid to distal aspect of the left anterior descending artery which was thin-walled. That artery was opened and a deep intramyocardial position and there was an injury to the posterior wall which I repaired using 2 sutures of Prolene 80 passed from inside to the outside and tied outside the vessel. Subsequently the left internal mammary artery was anastomosed to an extended arteriotomy using Prolene 70 in continuous fashion. FloSeal was applied to this anastomosis. Satisfied with the distal anastomosis attention was moved at performing the 2 proximal anastomosis. Rewarming was started. 2 buttons of 5 mm each were pushed out of the ascending aorta and the 2 proximal anastomosis constructed using Prolene 60 in continuous fashion. Patient was given lidocaine and magnesium and de-airing maneuvers were pursued before unclamping the aorta. He regained spontaneous sinus rhythm. Overall hemostasis was satisfactory. After a period of reperfusion we weaned off cardiac. Bypass without the need of any inotropic or vasopressor support. FRANKI showed improved left ventricle function and in particular the inferior wall. Graft flow measurement of the vein going to the posterior descending artery showed a flow of 98 mL/m, pulsatility index of 2.7 and diastolic filling of 49% . The flow into the vein graft going to the second obtuse marginal artery was 100 mL/m, pulsatility index of 1.4 and diastolic filling of 67%. The flow into the left internal mammary artery to the left anterior descending artery was 23 mL/m, pulsatility index of 1.6 and diastolic filling of 66% showing well- functioning grafts. With that test dose than full dose protamine was given. Decannulation followed. The antegrade cardioplegia site was reinforced with another pledgeted Prolene 40. The venous cannulation site was oversewn with a running Prolene 40. 2 monopolar atrial pacer wires were affixed to the respective pursestrings on the right atrium and one bipolar ventricular pacing wire was driven via the inferior aspect of the right ventricle. One 36-Greek chest tube was placed substernally. A groove was made in the left pleuropericardial fat to accommodate the mammary artery medial to the lung and away from the posterior sternal table. After ensuring adequate hemostasis and hemodynamics and after correct sponge instrument and needle count the sternum was appreciated using 5 [id number] [place] cables after interposing fibrillar between the sternal edges. Thorough irrigation with cefazolin followed. The rest of the closure proceeded in layers. Skin glue was applied. Patient did not receive any blood bank product but received 300 mL of Cell Saver blood. Was transferred to the ICU on no drips except low dose nitroglycerin with a cardiac index of 2.8, pulmonary pressure 30/15 and in normal sinus rhythm at 67 with a normal EKG. MMODL / IJN: [id number] / JENNIFER
--- NOTE | 2017-10-16 15:25 | XR ---
EXAMINATION TYPE: XR chest 1V portable DATE OF EXAM: 10/16/2017 COMPARISON: 09/27/2017 HISTORY: Postop cardiac surgery TECHNIQUE: Single frontal view of the chest is obtained. FINDINGS: ET tube approximately 5.5 cm above the marni and there is an NG tube. [place]-Yael catheter and chest tube noted. Epicardial lead suggested. Bilateral areas of consolidation are seen. No sizabl e pneumothorax or overt failure. Postsurgical changes noted. IMPRESSION: 1. Bilateral areas of infiltrate. 2. Postsurgical changes.
[2017-10-16] MEDS ORDERED: AMIODARONE 450 MG in DEXTROSE 5% IN WATER 250 ML IV PRN ×2 (15:29)
[2017-10-16 15:31] LABS: Basophils % (A) 0 %; Eosinophils # (A) 0.1 k/uL (0-0.7); Eosinophils % (A) 1 %; HCT 22.4 % (39.0-53.0); Lymphocytes # (A) 0.9 k/uL (1.0-4.8); Lymphocytes % (A) 14 %; MCH 28.4 pg (25.0-35.0); MCHC 33.6 g/dL (31.0-37.0); MCV 84.6 fL (80.0-100.0); Mean Platelet Volume 8.1; Monocytes # (A) 0.3 k/uL (0-1.0); Monocytes % (A) 5 %; Neutrophils # (A) 5.2 k/uL (1.3-7.7); Neutrophils % (A) 80 %; RBC 2.64 m/uL (4.30-5.90); RDW 13.7 % (11.5-15.5); WBC 6.4 k/uL (3.8-10.6)
[2017-10-16 15:38] LABS: HGB 7.5 gm/dL (13.0-17.5)
[2017-10-16 15:49] LABS: Glucose,Whole Blood 97 mg/dL (75-99)
[2017-10-16 15:52] LABS: ABG Base Excess 2.1 mmol/L; ABG HCO3 27 mmol/L (21-25); ABG PCO2 45 mmHg (35-45); ABG PH 7.39 (7.35-7.45); ABG PO2 384 mmHg (83-108); ABG TCO2 29 mmol/L (19-24)
[2017-10-16 15:55] LABS: Platelet Count 70 k/uL (150-450)
[2017-10-16 15:56] LABS: Ionized Calcium 4.5 mg/dL (4.5-5.3)
[2017-10-16 16:00] LABS: ALT 26 U/L (21-72); AST 36 U/L (17-59); Albumin 3.1 g/dL (3.5-5.0); Alkaline Phosphatase 28 U/L (38-126); Anion Gap 10 mmol/L; Blood Urea Nitrogen 12 mg/dL (9-20); Calcium 7.4 mg/dL (8.4-10.2); Carbon Dioxide 27 mmol/L (22-30); Chloride 107 mmol/L (98-107); Glucose 96 mg/dL (74-99); Magnesium 2.5 mg/dL (1.6-2.3); Potassium 4.2 mmol/L (3.5-5.1); Sodium 144 mmol/L (137-145); Total Bilirubin 0.6 mg/dL (0.2-1.3); Total Protein 4.7 g/dL (6.3-8.2)
[2017-10-16] MEDS: LACTATED RINGERS 1,000 ML IV SCH (16:01)
[2017-10-16] MEDS: CLEVIDIPINE BUTYRATE 25 MG in EMPTY BAG 1 BAG IV SCH ×3 (16:01→19:43)
[2017-10-16] MEDS: ceFAZolin IN SWFI 2 GM/20 ML SYRINGE IVP SCH ×2 (16:08→23:51)
[2017-10-16] MEDS: IPRATROPIUM-ALBUTEROL 3 ML NEB INHALATION SCH ×2 (16:34→20:35)
[2017-10-16 16:55] LABS: Glucose,Whole Blood 94 mg/dL (75-99)
[2017-10-16 18:05] LABS: Glucose,Whole Blood 105 mg/dL (75-99)
[2017-10-16] MEDS: ACETAMINOPHEN IV (For NPO) 1,000 MG in EMPTY BAG 1 BAG IVPB SCH ×2 (18:07→23:49)
[2017-10-16 18:20] LABS: Basophils % (A) 0 %; Eosinophils % (A) 0 %; HCT 26.1 % (39.0-53.0); HGB 8.6 gm/dL (13.0-17.5); Lymphocytes # (A) 0.8 k/uL (1.0-4.8); Lymphocytes % (A) 10 %; MCH 28.4 pg (25.0-35.0); MCHC 32.9 g/dL (31.0-37.0); MCV 86.1 fL (80.0-100.0); Mean Platelet Volume 7.2; Monocytes # (A) 0.4 k/uL (0-1.0); Monocytes % (A) 5 %; Neutrophils # (A) 6.7 k/uL (1.3-7.7); Neutrophils % (A) 83 %; RBC 3.03 m/uL (4.30-5.90); RDW 13.7 % (11.5-15.5)
[2017-10-16 18:21] LABS: Platelet Count 89 k/uL (150-450)
--- NOTE | 2017-10-16 18:42 | P.PN ---
Progress Note - Text Procedure performed: Transesophageal echocardiography Indication for the procedure: Coronary artery bypass graft surgery, ischemia monitoring, assessment of valvular function, intracardiac air monitoring, assessment of regional wall motion abnormalities and hemodynamic monitoring. Probe insertion: Under general anesthesia, uneventful. Pre-bypass findings: Left ventricle normal in dimension and LV ejection fraction is approximately 55 - 60%. Mild inferoseptal hypokinesia present. Left atrium Normal in size. No thrombus seen in the appendage. Right atrium normal in size. No patent foramen ovale or ASD seen. Right ventricle normal in structure and function. Aortic valve appears to be normal .No Aortic Regurgitation seen. Aortic valve area by continuity equation is 1.7 cm Mitral valve normal in anatomy. Trivial mitral regurgitation seen. Trivial tricuspid regurgitation seen. Pulmonic valve appears to be normal. Descending aorta grade 2 atheroma seen. Small pericardial effusion noted. Post-bypass findings: LV ejection fraction is 55-60%. No new regional wall motion abnormalities seen. Rest of the examination is same as pre-bypass.
[2017-10-16 19:01] LABS: Glucose,Whole Blood 130 mg/dL (75-99)
[2017-10-16 19:59] LABS: Glucose,Whole Blood 159 mg/dL (75-99)
[2017-10-16 20:12] LABS: ABG Base Excess -1.7 mmol/L; ABG HCO3 24 mmol/L (21-25); ABG Oxygen Saturation 92.6 % (94-97); ABG PCO2 48 mmHg (35-45); ABG PH 7.32 (7.35-7.45); ABG PO2 67 mmHg (83-108); ABG TCO2 26 mmol/L (19-24)
[2017-10-16 20:36] LABS: Glucose,Whole Blood 165 mg/dL (75-99)
[2017-10-16 21:04] LABS: Glucose,Whole Blood 160 mg/dL (75-99)
[2017-10-16 21:12] LABS: Basophils % (A) 0 %; Eosinophils % (A) 0 %; HCT 25.3 % (39.0-53.0); HGB 8.4 gm/dL (13.0-17.5); Lymphocytes # (A) 0.8 k/uL (1.0-4.8); Lymphocytes % (A) 6 %; MCH 28.6 pg (25.0-35.0); MCHC 33.3 g/dL (31.0-37.0); MCV 85.9 fL (80.0-100.0); Mean Platelet Volume 7.8; Monocytes # (A) 0.6 k/uL (0-1.0); Monocytes % (A) 5 %; Neutrophils # (A) 11.2 k/uL (1.3-7.7); Neutrophils % (A) 88 %; Platelet Count 129 k/uL (150-450); RBC 2.95 m/uL (4.30-5.90); RDW 13.5 % (11.5-15.5); WBC 12.7 k/uL (3.8-10.6)
--- NOTE | 2017-10-16 21:48 | CONS ---
CONSULTATION DATE OF CONSULTATION: October 16, 2017. REASON FOR CONSULTATION: Medical management requested by Dr. Odom. CONSULTATIONS: A pleasant 61-year-old patient of Dr. Martinez. Chronic stable medical conditions include hypertension, hyperlipidemia, COPD, obstructive sleep apnea, GERD. The patient has been having progressive shortness of breath. The patient did undergo stress test that came back positive. The patient subsequently underwent a cardiac catheterization that showed significant coronary artery disease. Subsequently patient has undergone a three-vessel coronary artery bypass, has postop 2 chest tubes. The patient's current drips include Cleviprex and insulin, nitro on lactated Ringer's. Telemetry shows sinus rhythm. The patient was extubated earlier today and has got a BiPAP in place. The patient is awake. The patient daughter is at the bedside who gives most of the history. Two chest tubes are in place. REVIEW OF SYSTEMS: Review of systems cannot be done. The patient has a BiPAP in place. PAST MEDICAL HISTORY: Hypertension, hyperlipidemia, COPD, obstructive sleep apnea, GERD and ischemic cardiomyopathy EF 40 to 45% via ventriculogram. PAST SURGICAL HISTORY: Appendectomy, hernia repair, vasectomy. SOCIAL HISTORY: The patient lives alone. Used to be [id number]. Smoked about 2 packs a day for 15 years. Stopped in 2001. Alcohol occasionally. FAMILY HISTORY: Lung disease. HOME MEDICATIONS: ProAir 1-2 puffs q.6h p.r.n., 1 puff b.i.d. Respimat 3 Lipitor 80 mg with supper. Bactroban 2% nasal ointment b.i.d. Lopressor 100 mg b.i.d. daily. Prevacid 30 mg p.o. daily p.r.n. Lasix 20 mg p.o. daily p.r.n. aspirin 325 mg p.o. daily Isoptin SR 240 mg p.o. daily. ALLERGIES: None. PHYSICAL EXAMINATION: On examination, afebrile, pulse 82, respiration 12, blood pressure 103/52. Pulse ox 100%. GENERAL APPEARANCE: Well built BMI 33.4, lying in bed with a BiPAP in place. Eyes: Pupils equal. Conjunctivae normal. HEENT: External appearance of nose and ears normal. Oral cavity difficult to ascertain. Neck: JVD is difficult to assess. Mass not palpable. Respiratory effort increased. LUNGS: Diminished breath sounds. Cardiovascular 1st and 2nd sounds normal. No edema. ABDOMEN: Soft, nontender. Liver and spleen not palpable. Chest wall has got two tubes in place. Psychiatry: The patient is awake, following commands. Neurological: Pupils equal. No facial asymmetry. Does move his limbs. INVESTIGATIONS: Currently white count 12.7, hemoglobin 8.4, platelets 129. The patient's platelets was 203, hemoglobin for 14.6 preoperatively. Accu-Cheks are noted. ASSESSMENT: 1. Status post triple-vessel coronary artery bypass with [address] 2. Ischemic cardiomyopathy EF 40%. 3. Obstructive sleep apnea. Uses a BiPAP machine. 4. Gastroesophageal reflux disease. 5. Chronic obstructive pulmonary disease in an ex-smoker. 6. Essential hypertension. 7. Hyperlipidemia. 8. Obesity; BMI 33.3. 9. Acute postop blood loss anemia expected from surgery. 10.Dilutional thrombocytopenia. PLAN: The patient is currently on IV Cleviprex and insulin with nitroglycerin drip. The patient also on subcu heparin for DVT prophylaxis. Other home medications will be resumed. Patient uses BiPAP. Care was discussed with the patient. Daughter at the bedside. Thank you Dr. Odom. Copy to Dr. Martinez. MMODL / IJN: [id number] /
[2017-10-16 22:02] LABS: Glucose,Whole Blood 147 mg/dL (75-99)
[2017-10-16 23:02] LABS: Glucose,Whole Blood 133 mg/dL (75-99)
[2017-10-16] MEDS: MUPIROCIN 2% OINT 22 GM TUBE NASAL SCH (23:25)
[2017-10-17] LABS: Glucose,Whole Blood 127 mg/dL (75-99)
[2017-10-17] MEDS: HEPARIN SODIUM,PORCINE 5,000 UNIT/ML 1 ML VIAL SQ SCH ×4 (00:31→23:07)
[2017-10-17 01:04] LABS: Glucose,Whole Blood 125 mg/dL (75-99)
[2017-10-17 01:58] LABS: Glucose,Whole Blood 128 mg/dL (75-99)
[2017-10-17 02:54] LABS: Glucose,Whole Blood 115 mg/dL (75-99)
[2017-10-17 04:08] LABS: Glucose,Whole Blood 118 mg/dL (75-99)
[2017-10-17 04:21] LABS: Ionized Calcium 4.6 mg/dL (4.5-5.3)
[2017-10-17 04:27] LABS: INR 1.2 (<1.2)
[2017-10-17 04:28] LABS: Basophils % (A) 0 %; Eosinophils % (A) 0 %; HCT 23.2 % (39.0-53.0); HGB 7.6 gm/dL (13.0-17.5); Lymphocytes # (A) 0.6 k/uL (1.0-4.8); Lymphocytes % (A) 7 %; MCH 28.3 pg (25.0-35.0); MCV 85.7 fL (80.0-100.0); Mean Platelet Volume 7.6; Monocytes # (A) 0.4 k/uL (0-1.0); Monocytes % (A) 5 %; Neutrophils # (A) 7.5 k/uL (1.3-7.7); Neutrophils % (A) 88 %; Partial Thromboplastin Time 27.8 sec (22.0-30.0); Prothrombin Time 11.1 sec (9.0-12.0); RDW 13.7 % (11.5-15.5); WBC 8.5 k/uL (3.8-10.6)
[2017-10-17 04:34] LABS: ALT 31 U/L (21-72); AST 37 U/L (17-59); Alkaline Phosphatase 41 U/L (38-126); Anion Gap 10 mmol/L; Blood Urea Nitrogen 13 mg/dL (9-20); Calcium 7.7 mg/dL (8.4-10.2); Carbon Dioxide 28 mmol/L (22-30); Chloride 105 mmol/L (98-107); Glucose 108 mg/dL (74-99); Magnesium 2.1 mg/dL (1.6-2.3); Potassium 4.1 mmol/L (3.5-5.1); Sodium 143 mmol/L (137-145); Total Bilirubin 0.4 mg/dL (0.2-1.3); Total Protein 4.8 g/dL (6.3-8.2)
[2017-10-17 05:13] LABS: Platelet Count 82 k/uL (150-450)
[2017-10-17 06:15] LABS: Glucose,Whole Blood 125 mg/dL (75-99)
[2017-10-17] MEDS: ACETAMINOPHEN IV (For NPO) 1,000 MG in EMPTY BAG 1 BAG IVPB SCH ×3 (06:21→18:34)
[2017-10-17] MEDS ORDERED: FUROSEMIDE 10 MG/ML 2 ML VIAL IV ONE (07:22)
[2017-10-17 07:34] LABS: Glucose,Whole Blood 114 mg/dL (75-99)
[2017-10-17] MEDS: MUPIROCIN 2% OINT 22 GM TUBE NASAL SCH ×2 (07:49→20:00)
[2017-10-17] MEDS: PANTOPRAZOLE 40 MG/10 ML VIAL IVP SCH (07:49)
[2017-10-17] MEDS: CLOPIDOGREL 75 MG TAB PO SCH (07:49)
[2017-10-17] MEDS: ATORVASTATIN 40 MG TAB PO SCH (07:49)
[2017-10-17] MEDS ORDERED: FUROSEMIDE 10 MG/ML 4 ML VIAL ONE (07:53)
[2017-10-17] MEDS: ASPIRIN 81 MG PO SCH (07:53)
--- NOTE | 2017-10-17 08:08 | XR ---
EXAMINATION TYPE: XR chest 1V portable DATE OF EXAM: 10/17/2017 Comparison: 10/16/2017 Clinical History: 61-year-old male Post Operative Cardiac Surgery Findings: Right IJ [place]-Yael catheter with tip in the proximal right main pulmonary artery. Median sternotomy w ires are present with post-CABG clips. Mediastinal drain and left-sided chest tube are present. No ap preciable pneumothorax. Overall aeration in the upper and mid lungs is improved. There is some residu al strandy density at the left base. No significant pleural effusion seen. Impression: Improving aeration with some residual patchy atelectasis at the left base.
--- NOTE | 2017-10-17 08:10 | P.PN ---
Subjective Progress Note Date: 10/17/17 Principal diagnosis: Triple-vessel coronary artery disease. Totally occluded right coronary artery and left anterior descending artery. Mild to moderate left ventricular dysfunction on ventriculogram with EF 40-45%. Severe chronic obstructive pulmonary disease with preoperative FEV1 49% of predicted. Asthma. Obstructive sleep apnea. Hypertension. Hyperlipidemia. Previous tobacco dependence. Family history of coronary artery disease. Obesity. Preop nasal swab positive for MSSA. POD #1 elective triple coronary artery bypass grafting using the left internal mammary artery to the left anterior descending artery, reverse saphenous vein graft from the aorta to the posterior descending artery, reverse saphenous vein graft from the aorta to the second obtuse marginal artery. Endoscopic harvesting of the left greater saphenous vein. Intraoperative transesophageal echocardiogram and epi-aortic scanning. Intraoperative graft flow measurements using the [email or web address] system. Acute blood loss anemia, an expected outcome of surgery secondary to hemodilution and bypass pump. The patient is currently sitting up in the recliner in no acute distress. States pain is controlled on ordered pain medication, denies shortness of breath. Was successfully extubated last night at 20:38. Remains on Cleviprex IV. Objective - Vital Signs Vital signs: Vital Signs Temp 99.1 F 10/17/17 00:00 Pulse 118 H 10/17/17 07:00 Resp 20 10/17/17 07:00 BP 141/84 10/16/17 05:50 Pulse Ox 100 10/17/17 07:00 Intake & Output 10/16/17 10/17/17 10/17/17 18:59 06:59 18:59 Intake Total 050.306 3608.108 156.867 Output Total 2899 1308 92 Balance -2507.616 14.108 64.867 Weight 103.1 kg Intake: IV 330 1246 153 ACETAMINOPHEN IV (For NPO 200 100 ) 1,000 mg In Empty Bag 1 bag @ 400 mls/hr IVPB Q6HR BETITO Rx#:[id number] CO/CI 70 330 Lactated Ringers 1,000 ml 209 600 50 @ 20 mls/hr IV .Q24H BETITO Rx#:[id number] PRESSURE BAG 0.9% 18 96 3 ceFAZolin 2,000 mg In 20 Sodium Chloride 0.9% 30 ml @ Per Protocol IVPB ONCE ONE Rx#:[id number] Intake, IV Titration 61.384 76.108 3.867 Amount Clevidipine Butyrate 25 7.534 55.800 3.867 mg In Empty Bag 1 bag @ 1 MG/HR 2 mls/hr IV .Q24H BETITO Rx#:[id number] Insulin Regular 100 unit 20.308 In Sodium Chloride 0.9% 100 ml @ Per Protocol IV .Q0M BETITO Rx#:[id number] Propofol 1,000 mg In 53.85 Empty Bag 1 bag @ Titrate IV .Q0M BETITO Rx#: [id number] Output: Chest Tube Drainage 199 338 22 Mediastinal 148 276 20 Pleural Catheter Left 51 62 2 Drainage 50 70 Left Calf 50 70 Urine 1150 900 70 Estimated Blood Loss 1500 Other: Voiding Method Indwelling Catheter Indwelling Catheter # Bowel Movements 0 0 ABP, PAP, CO, CI - Last Documented Arterial Blood Pressure 139/63 Pulmonary Artery Pressure 44/23 Cardiac Output 6.8 Cardiac Index 3.3 - Constitutional General appearance: Present: cooperative, no acute distress, obese - Respiratory Details: Lungs sounds diminished bilaterally. Respirations even, nonlabored. Currently on 5 L nasal cannula with oxygen saturation 99%. Able to achieve 1250 mL on his incentive spirometry. Mediastinal chest tube to continuous wall suction, 170 mL serosanguineous drainage overnight, 440 mL since surgery. Left pleural chest tube to continuous wall suction, 25 mL serosanguineous drainage overnight , 110 mL since surgery. No air leaks present. - Cardiovascular Details: S1, S2 present. Tachycardia but regular rate and rhythm, sinus tach on telemetry. Sternum stable. A/V epicardial pacemaker wires present, connected to generator, VVI mode with backup rate 50 bpm. Palpable peripheral pulses bilaterally. Trace bilateral lower extremity edema present. No calf pain or tenderness noted. Right internal jugular Cordis/Cassadaga, right radial arterial line present. Last CO/CI 6.8/3.3 on no inotropes. Heart hugger in place with patient demonstrating appropriate use. Antiembolism stockings, SCDs present. - Gastrointestinal Gastrointestinal Comment(s): Abdomen soft, nontender, nondistended. Hypoactive bowel sounds present 4 quadrants. Tolerating clear liquids. Negative flatus yet. - Genitourinary Genitourinary Comment(s): Longo present draining clear, yellow urine. Output 45-50 mL per hour overnight. - Integumentary Integumentary Comment(s): Skin is warm and dry with evidence of good perfusion. Anterior chest incision well approximated and covered with dry intact dressing. Left lower extremity EVH site well approximated, CHASIDY drain present with minimal drainage. - Neurologic Neurologic: Present: CNII-XII intact - Musculoskeletal Musculoskeletal: Present: gait normal, strength equal bilaterally - Psychiatric Psychiatric: Present: A&O x's 3, appropriate affect, intact judgment & insight - Allied health notes Allied health notes reviewed: nursing - Labs CBC & Chem 7: 10/17/17 04:05 10/17/17 04:05 Labs: Abnormal Lab Results - Last 24 Hours (Table) 10/12/17 10/16/17 10/16/17 Range/Units 09:26 08:35 10:44 WBC (3.8-10.6) k/uL RBC (4.30-5.90) m/uL Hgb (13.0-17.5) gm/dL Hct (39.0-53.0) % Plt Count (150-450) k/uL Neutrophils # (1.3-7.7) k/uL Lymphocytes # (1.0-4.8) k/uL PT (9.0-12.0) sec INR (<1.2) APTT (22.0-30.0) sec ABG pH (7.35-7.45) ABG pCO2 (35-45) mmHg ABG pO2 401 H 386 H (83-108) mmHg ABG HCO3 28 H 29 H (21-25) mmol/L ABG Total CO2 30 H 30 H (19-24) mmol/L ABG O2 Saturation 100.0 H 100.0 H (94-97) % ABG Hematocrit (34.0-46.0) % ABG Potassium (3.4-4.5) mmol/L ABG Ionized Calcium 4.4 L 4.4 L (4.5-5.3) mg/dL ABG Glucose 112 H 126 H (75-99) mg/dL ABG Lactic Acid (0.5-1.6) mmol/L Hemoglobin 12.2 L 11.5 L (13.0-17.5) gm/dL Creatinine (0.66-1.25) mg/dL Glucose (74-99) mg/dL POC Glucose (mg/dL) (75-99) mg/dL Calcium (8.4-10.2) mg/dL Magnesium (1.6-2.3) mg/dL Alkaline Phosphatase (38-126) U/L Total Protein (6.3-8.2) g/dL Albumin (3.5-5.0) g/dL Arterial Blood Potassium (3.4-4.5) mmol/L Arterial Blood Glucose 112 H 126 H (75-99) mg/dL Crossmatch See Detail 10/16/17 10/16/17 10/16/17 Range/Units 11:18 11:47 12:20 WBC (3.8-10.6) k/uL RBC (4.30-5.90) m/uL Hgb (13.0-17.5) gm/dL Hct (39.0-53.0) % Plt Count (150-450) k/uL Neutrophils # (1.3-7.7) k/uL Lymphocytes # (1.0-4.8) k/uL PT (9.0-12.0) sec INR (<1.2) APTT (22.0-30.0) sec ABG pH 7.47 H (7.35-7.45) ABG pCO2 (35-45) mmHg ABG pO2 336 H 297 H 343 H (83-108) mmHg ABG HCO3 27 H 27 H 27 H (21-25) mmol/L ABG Total CO2 29 H 28 H 29 H (19-24) mmol/L ABG O2 Saturation 100.0 H 100.0 H 100.0 H (94-97) % ABG Hematocrit 25 L 24 L 24 L (34.0-46.0) % ABG Potassium (3.4-4.5) mmol/L ABG Ionized Calcium 3.9 L 3.9 L 3.9 L (4.5-5.3) mg/dL ABG Glucose 113 H 176 H 167 H (75-99) mg/dL ABG Lactic Acid (0.5-1.6) mmol/L Hemoglobin 8.2 L 8.0 L 7.9 L (13.0-17.5) gm/dL Creatinine (0.66-1.25) mg/dL Glucose (74-99) mg/dL POC Glucose (mg/dL) (75-99) mg/dL Calcium (8.4-10.2) mg/dL Magnesium (1.6-2.3) mg/dL Alkaline Phosphatase (38-126) U/L Total Protein (6.3-8.2) g/dL Albumin (3.5-5.0) g/dL Arterial Blood Potassium (3.4-4.5) mmol/L Arterial Blood Glucose 113 H 176 H 167 H (75-99) mg/dL Crossmatch 10/16/17 10/16/17 10/16/17 Range/Units 12:53 14:06 15:07 WBC (3.8-10.6) k/uL RBC (4.30-5.90) m/uL Hgb (13.0-17.5) gm/dL Hct (39.0-53.0) % Plt Count (150-450) k/uL Neutrophils # (1.3-7.7) k/uL Lymphocytes # (1.0-4.8) k/uL PT (9.0-12.0) sec INR (<1.2) APTT (22.0-30.0) sec ABG pH 7.33 L (7.35-7.45) ABG pCO2 47 H 51 H (35-45) mmHg ABG pO2 315 H 388 H (83-108) mmHg ABG HCO3 27 H 27 H (21-25) mmol/L ABG Total CO2 29 H 28 H (19-24) mmol/L ABG O2 Saturation 100.0 H 100.0 H (94-97) % ABG Hematocrit 23 L 25 L (34.0-46.0) % ABG Potassium 4.6 H (3.4-4.5) mmol/L ABG Ionized Calcium 3.9 L 4.4 L (4.5-5.3) mg/dL ABG Glucose 193 H 138 H (75-99) mg/dL ABG Lactic Acid 2.0 H 2.1 H (0.5-1.6) mmol/L Hemoglobin 7.5 L 8.1 L (13.0-17.5) gm/dL Creatinine (0.66-1.25) mg/dL Glucose (74-99) mg/dL POC Glucose (mg/dL) 102 H (75-99) mg/dL Calcium (8.4-10.2) mg/dL Magnesium (1.6-2.3) mg/dL Alkaline Phosphatase (38-126) U/L Total Protein (6.3-8.2) g/dL Albumin (3.5-5.0) g/dL Arterial Blood Potassium 4.6 H (3.4-4.5) mmol/L Arterial Blood Glucose 193 H 138 H (75-99) mg/dL Crossmatch 10/16/17 10/16/17 10/16/17 Range/Units 15:08 15:08 15:08 WBC (3.8-10.6) k/uL RBC 2.64 L (4.30-5.90) m/uL Hgb 7.5 L D (13.0-17.5) gm/dL Hct 22.4 L (39.0-53.0) % Plt Count 70 L D (150-450) k/uL Neutrophils # (1.3-7.7) k/uL Lymphocytes # 0.9 L (1.0-4.8) k/uL PT 12.9 H (9.0-12.0) sec INR 1.4 H (<1.2) APTT 39.5 H (22.0-30.0) sec ABG pH (7.35-7.45) ABG pCO2 (35-45) mmHg ABG pO2 (83-108) mmHg ABG HCO3 (21-25) mmol/L ABG Total CO2 (19-24) mmol/L ABG O2 Saturation (94-97) % ABG Hematocrit (34.0-46.0) % ABG Potassium (3.4-4.5) mmol/L ABG Ionized Calcium (4.5-5.3) mg/dL ABG Glucose (75-99) mg/dL ABG Lactic Acid (0.5-1.6) mmol/L Hemoglobin (13.0-17.5) gm/dL Creatinine 0.55 L (0.66-1.25) mg/dL Glucose (74-99) mg/dL POC Glucose (mg/dL) (75-99) mg/dL Calcium 7.4 L (8.4-10.2) mg/dL Magnesium 2.5 H (1.6-2.3) mg/dL Alkaline Phosphatase 28 L (38-126) U/L Total Protein 4.7 L (6.3-8.2) g/dL Albumin 3.1 L (3.5-5.0) g/dL Arterial Blood Potassium (3.4-4.5) mmol/L Arterial Blood Glucose (75-99) mg/dL Crossmatch 10/16/17 10/16/17 10/16/17 Range/Units 15:50 17:59 18:03 WBC (3.8-10.6) k/uL RBC 3.03 L (4.30-5.90) m/uL Hgb 8.6 L (13.0-17.5) gm/dL Hct 26.1 L (39.0-53.0) % Plt Count 89 L (150-450) k/uL Neutrophils # (1.3-7.7) k/uL Lymphocytes # 0.8 L (1.0-4.8) k/uL PT (9.0-12.0) sec INR (<1.2) APTT (22.0-30.0) sec ABG pH (7.35-7.45) ABG pCO2 (35-45) mmHg ABG pO2 384 H (83-108) mmHg ABG HCO3 27 H (21-25) mmol/L ABG Total CO2 29 H (19-24) mmol/L ABG O2 Saturation 100.0 H (94-97) % ABG Hematocrit (34.0-46.0) % ABG Potassium (3.4-4.5) mmol/L ABG Ionized Calcium (4.5-5.3) mg/dL ABG Glucose (75-99) mg/dL ABG Lactic Acid (0.5-1.6) mmol/L Hemoglobin (13.0-17.5) gm/dL Creatinine (0.66-1.25) mg/dL Glucose (74-99) mg/dL POC Glucose (mg/dL) 105 H (75-99) mg/dL Calcium (8.4-10.2) mg/dL Magnesium (1.6-2.3) mg/dL Alkaline Phosphatase (38-126) U/L Total Protein (6.3-8.2) g/dL Albumin (3.5-5.0) g/dL Arterial Blood Potassium (3.4-4.5) mmol/L Arterial Blood Glucose (75-99) mg/dL Crossmatch 10/16/17 10/16/17 10/16/17 Range/Units 19:00 19:57 20:10 WBC (3.8-10.6) k/uL RBC (4.30-5.90) m/uL Hgb (13.0-17.5) gm/dL Hct (39.0-53.0) % Plt Count (150-450) k/uL Neutrophils # (1.3-7.7) k/uL Lymphocytes # (1.0-4.8) k/uL PT (9.0-12.0) sec INR (<1.2) APTT (22.0-30.0) sec ABG pH 7.32 L (7.35-7.45) ABG pCO2 48 H (35-45) mmHg ABG pO2 67 L (83-108) mmHg ABG HCO3 (21-25) mmol/L ABG Total CO2 26 H (19-24) mmol/L ABG O2 Saturation 92.6 L (94-97) % ABG Hematocrit (34.0-46.0) % ABG Potassium (3.4-4.5) mmol/L ABG Ionized Calcium (4.5-5.3) mg/dL ABG Glucose (75-99) mg/dL ABG Lactic Acid (0.5-1.6) mmol/L Hemoglobin (13.0-17.5) gm/dL Creatinine (0.66-1.25) mg/dL Glucose (74-99) mg/dL POC Glucose (mg/dL) 130 H 159 H (75-99) mg/dL Calcium (8.4-10.2) mg/dL Magnesium (1.6-2.3) mg/dL Alkaline Phosphatase (38-126) U/L Total Protein (6.3-8.2) g/dL Albumin (3.5-5.0) g/dL Arterial Blood Potassium (3.4-4.5) mmol/L Arterial Blood Glucose (75-99) mg/dL Crossmatch 10/16/17 10/16/17 10/16/17 Range/Units 20:34 21:01 21:02 WBC 12.7 H (3.8-10.6) k/uL RBC 2.95 L (4.30-5.90) m/uL Hgb 8.4 L (13.0-17.5) gm/dL Hct 25.3 L (39.0-53.0) % Plt Count 129 L (150-450) k/uL Neutrophils # 11.2 H (1.3-7.7) k/uL Lymphocytes # 0.8 L (1.0-4.8) k/uL PT (9.0-12.0) sec INR (<1.2) APTT (22.0-30.0) sec ABG pH (7.35-7.45) ABG pCO2 (35-45) mmHg ABG pO2 (83-108) mmHg ABG HCO3 (21-25) mmol/L ABG Total CO2 (19-24) mmol/L ABG O2 Saturation (94-97) % ABG Hematocrit (34.0-46.0) % ABG Potassium (3.4-4.5) mmol/L ABG Ionized Calcium (4.5-5.3) mg/dL ABG Glucose (75-99) mg/dL ABG Lactic Acid (0.5-1.6) mmol/L Hemoglobin (13.0-17.5) gm/dL Creatinine (0.66-1.25) mg/dL Glucose (74-99) mg/dL POC Glucose (mg/dL) 165 H 160 H (75-99) mg/dL Calcium (8.4-10.2) mg/dL Magnesium (1.6-2.3) mg/dL Alkaline Phosphatase (38-126) U/L Total Protein (6.3-8.2) g/dL Albumin (3.5-5.0) g/dL Arterial Blood Potassium (3.4-4.5) mmol/L Arterial Blood Glucose (75-99) mg/dL Crossmatch 10/16/17 10/16/17 10/16/17 Range/Units 22:00 23:00 23:59 WBC (3.8-10.6) k/uL RBC (4.30-5.90) m/uL Hgb (13.0-17.5) gm/dL Hct (39.0-53.0) % Plt Count (150-450) k/uL Neutrophils # (1.3-7.7) k/uL Lymphocytes # (1.0-4.8) k/uL PT (9.0-12.0) sec INR (<1.2) APTT (22.0-30.0) sec ABG pH (7.35-7.45) ABG pCO2 (35-45) mmHg ABG pO2 (83-108) mmHg ABG HCO3 (21-25) mmol/L ABG Total CO2 (19-24) mmol/L ABG O2 Saturation (94-97) % ABG Hematocrit (34.0-46.0) % ABG Potassium (3.4-4.5) mmol/L ABG Ionized Calcium (4.5-5.3) mg/dL ABG Glucose (75-99) mg/dL ABG Lactic Acid (0.5-1.6) mmol/L Hemoglobin (13.0-17.5) gm/dL Creatinine (0.66-1.25) mg/dL Glucose (74-99) mg/dL POC Glucose (mg/dL) 147 H 133 H 127 H (75-99) mg/dL Calcium (8.4-10.2) mg/dL Magnesium (1.6-2.3) mg/dL Alkaline Phosphatase (38-126) U/L Total Protein (6.3-8.2) g/dL Albumin (3.5-5.0) g/dL Arterial Blood Potassium (3.4-4.5) mmol/L Arterial Blood Glucose (75-99) mg/dL Crossmatch 10/17/17 10/17/17 10/17/17 Range/Units 01:02 01:57 02:52 WBC (3.8-10.6) k/uL RBC (4.30-5.90) m/uL Hgb (13.0-17.5) gm/dL Hct (39.0-53.0) % Plt Count (150-450) k/uL Neutrophils # (1.3-7.7) k/uL Lymphocytes # (1.0-4.8) k/uL PT (9.0-12.0) sec INR (<1.2) APTT (22.0-30.0) sec ABG pH (7.35-7.45) ABG pCO2 (35-45) mmHg ABG pO2 (83-108) mmHg ABG HCO3 (21-25) mmol/L ABG Total CO2 (19-24) mmol/L ABG O2 Saturation (94-97) % ABG Hematocrit (34.0-46.0) % ABG Potassium (3.4-4.5) mmol/L ABG Ionized Calcium (4.5-5.3) mg/dL ABG Glucose (75-99) mg/dL ABG Lactic Acid (0.5-1.6) mmol/L Hemoglobin (13.0-17.5) gm/dL Creatinine (0.66-1.25) mg/dL Glucose (74-99) mg/dL POC Glucose (mg/dL) 125 H 128 H 115 H (75-99) mg/dL Calcium (8.4-10.2) mg/dL Magnesium (1.6-2.3) mg/dL Alkaline Phosphatase (38-126) U/L Total Protein (6.3-8.2) g/dL Albumin (3.5-5.0) g/dL Arterial Blood Potassium (3.4-4.5) mmol/L Arterial Blood Glucose (75-99) mg/dL Crossmatch 10/17/17 10/17/17 10/17/17 Range/Units 04:05 04:05 04:05 WBC (3.8-10.6) k/uL RBC 2.70 L (4.30-5.90) m/uL Hgb 7.6 L (13.0-17.5) gm/dL Hct 23.2 L (39.0-53.0) % Plt Count 82 L (150-450) k/uL Neutrophils # (1.3-7.7) k/uL Lymphocytes # 0.6 L (1.0-4.8) k/uL PT (9.0-12.0) sec INR 1.2 H (<1.2) APTT (22.0-30.0) sec ABG pH (7.35-7.45) ABG pCO2 (35-45) mmHg ABG pO2 (83-108) mmHg ABG HCO3 (21-25) mmol/L ABG Total CO2 (19-24) mmol/L ABG O2 Saturation (94-97) % ABG Hematocrit (34.0-46.0) % ABG Potassium (3.4-4.5) mmol/L ABG Ionized Calcium (4.5-5.3) mg/dL ABG Glucose (75-99) mg/dL ABG Lactic Acid (0.5-1.6) mmol/L Hemoglobin (13.0-17.5) gm/dL Creatinine 0.60 L (0.66-1.25) mg/dL Glucose 108 H (74-99) mg/dL POC Glucose (mg/dL) (75-99) mg/dL Calcium 7.7 L (8.4-10.2) mg/dL Magnesium (1.6-2.3) mg/dL Alkaline Phosphatase (38-126) U/L Total Protein 4.8 L (6.3-8.2) g/dL Albumin 3.0 L (3.5-5.0) g/dL Arterial Blood Potassium (3.4-4.5) mmol/L Arterial Blood Glucose (75-99) mg/dL Crossmatch 10/17/17 10/17/17 Range/Units 04:05 06:10 WBC (3.8-10.6) k/uL RBC (4.30-5.90) m/uL Hgb (13.0-17.5) gm/dL Hct (39.0-53.0) % Plt Count (150-450) k/uL Neutrophils # (1.3-7.7) k/uL Lymphocytes # (1.0-4.8) k/uL PT (9.0-12.0) sec INR (<1.2) APTT (22.0-30.0) sec ABG pH (7.35-7.45) ABG pCO2 (35-45) mmHg ABG pO2 (83-108) mmHg ABG HCO3 (21-25) mmol/L ABG Total CO2 (19-24) mmol/L ABG O2 Saturation (94-97) % ABG Hematocrit (34.0-46.0) % ABG Potassium (3.4-4.5) mmol/L ABG Ionized Calcium (4.5-5.3) mg/dL ABG Glucose (75-99) mg/dL ABG Lactic Acid (0.5-1.6) mmol/L Hemoglobin (13.0-17.5) gm/dL Creatinine (0.66-1.25) mg/dL Glucose (74-99) mg/dL POC Glucose (mg/dL) 118 H 125 H (75-99) mg/dL Calcium (8.4-10.2) mg/dL Magnesium (1.6-2.3) mg/dL Alkaline Phosphatase (38-126) U/L Total Protein (6.3-8.2) g/dL Albumin (3.5-5.0) g/dL Arterial Blood Potassium (3.4-4.5) mmol/L Arterial Blood Glucose (75-99) mg/dL Crossmatch - Imaging and Cardiology Chest x-ray: image reviewed Assessment and Plan (1) Triple vessel coronary artery disease Current Visit: Yes Status: Chronic Code(s): I25.10 - ATHSCL HEART DISEASE OF [place] CORONARY ARTERY W/O ANG PCTRS SNOMED Code(s): 679801436 (2) Hypertension Current Visit: Yes Status: Chronic Code(s): I10 - ESSENTIAL (PRIMARY) HYPERTENSION SNOMED Code(s): 66561045 (3) Hyperlipidemia Current Visit: Yes Status: Chronic Code(s): E78.5 - HYPERLIPIDEMIA, UNSPECIFIED SNOMED Code(s): 43473516 (4) COPD (chronic obstructive pulmonary disease) Current Visit: Yes Status: Chronic Code(s): J44.9 - CHRONIC OBSTRUCTIVE PULMONARY DISEASE, UNSPECIFIED SNOMED Code(s): 36040210 (5) Asthma Current Visit: Yes Status: Chronic Code(s): J45.909 - UNSPECIFIED ASTHMA, UNCOMPLICATED SNOMED Code(s): 549920235 (6) Obstructive sleep apnea Current Visit: Yes Status: Chronic Code(s): G47.33 - OBSTRUCTIVE SLEEP APNEA (ADULT) (PEDIATRIC) SNOMED Code(s): 24042855 (7) Tobacco dependence in remission Current Visit: No Status: Resolved Code(s): F17.201 - NICOTINE DEPENDENCE, UNSPECIFIED, IN REMISSION SNOMED Code(s): 509788889 (8) Family history of coronary artery disease Current Visit: Yes Status: Chronic Code(s): Z82.49 - FAMILY HX OF ISCHEM HEART DIS AND OTH DIS OF THE CIRC SYS SNOMED Code(s): 177518056 (9) Obesity (BMI 30-39.9) Current Visit: Yes Status: Chronic Code(s): E66.9 - OBESITY, UNSPECIFIED SNOMED Code(s): 883651366 Plan: 1. Continue low-dose aspirin, statin, Plavix, heparin subcu, beta emmanuel therapy. Will increase beta emmanuel therapy as tolerated. 2. Wean O2 as tolerated. Encourage incentive spirometry use 10 times every hour. 3. Encourage continued smoking cessation. 4. Will give 20 mg IV Lasix today. 5. Discontinue Cassadaga. Cannot Cordis to continue CVP monitoring. 6. Wean Cleviprex as able. Discontinue nitro drip. 7. Bronchodilators per pulmonology. 8. Increase activity, ambulate as tolerated. PT/OT/cardiac rehab following. 9. Insulin drip/diabetic management per primary care service. 10. GI/DVT prophylaxis. 11. Will monitor daily labs, x-rays. 12. Pain management with ordered medications. 13. More recommendations to follow. 5 meter walk test done preoperatively on 10/03/17: 1. 2.55 sec 2. 2.96 sec 3. 2.82 sec Time with Patient: Greater than 30
[2017-10-17] MEDS: ceFAZolin IN SWFI 2 GM/20 ML SYRINGE IVP SCH (08:20)
[2017-10-17] MEDS: IPRATROPIUM-ALBUTEROL 3 ML NEB INHALATION SCH ×3 (08:34→20:07)
[2017-10-17] MEDS ORDERED: ASPIRIN 325 MG TAB PO SCH (09:00)
[2017-10-17] MEDS ORDERED: METOPROLOL TARTRATE 12.5 MG TAB PO SCH (09:00)
[2017-10-17 09:52] LABS: Glucose,Whole Blood 143 mg/dL (75-99)
[2017-10-17] MEDS ORDERED: METOPROLOL TARTRATE 12.5 MG TAB PO STA (10:09)
--- NOTE | 2017-10-17 11:34 | P.CNPUL ---
History of Present Illness Consult date: 10/17/17 Requesting physician: Sloan Odom Reason for consult: other (Triple-vessel coronary artery disease, status post elective triple coronary artery bypass grafting.) Chief complaint: Status post CABG History of present illness: This is a 61-year-old white male with history of triple vessel coronary artery disease, totally occluded right coronary artery and left anterior descending artery, mild to moderate LV dysfunction with ejection fraction of 40-45%, history of severe COPD, FEV1 is in the range of 50%, history of obstructive sleep apnea, hypertension, previous history of smoking, patient underwent elective triple coronary artery bypass grafting using left internal mammary artery to the LAD, reverse saphenous vein graft to the posterior descending artery and reverse saphenous vein graft to the second obtuse marginal artery. Postoperatively, patient was on mechanical ventilation, I was notified about this patient last night, manage his ventilator, patient was extubated within a relatively short period of time after his surgery, however considering his ABG was marginal, patient was extubated to BiPAP, and today he was switched to a nasal cannula. Evaluated this morning, patient is relatively asymptomatic, his clinical course is progressing as expected, patient denies any shortness of breath. No chest pain. No nausea no vomiting no abdominal pain. Doing extremely well with incentive spirometry. And he is back on his bronchodilators. Review of Systems 14 point review of systems were obtained, please refer to pertinent positives in HPI otherwise remaining systems are negative. Past Medical History Past Medical History: Asthma, Heart Failure, COPD, GERD/Reflux, Hyperlipidemia, Hypertension, Sleep Apnea/CPAP/BIPAP Additional Past Medical History / Comment(s): SOB with activity,uses cpap History of Any Multi-Drug Resistant Organisms: None Reported Past Surgical History: Appendectomy, Heart Catheterization, Hernia Repair Additional Past Surgical History / Comment(s): vasectomy Past Anesthesia/Blood Transfusion Reactions: No Reported Reaction Smoking Status: Former smoker - Past Family History Mother Family Medical History: No Reported History Father Family Medical History: Cancer Additional Family Medical History / Comment(s): lung Medications and Allergies Home Medications Medication Instructions Recorded Confirmed Type Albuterol Sulfate [Proair Hfa] 1 - 2 puff INHALATION RT-Q6H PRN 09/07/17 History Aspirin 324 mg PO DAILY 09/07/17 10/16/17 History Furosemide [Lasix] 20 mg PO DAILY PRN 09/07/17 10/16/17 History Metoprolol Tartrate [Lopressor] 100 mg PO DAILY 09/07/17 10/16/17 History Tiotropium Br/Olodaterol HCl 1 puff INHALATION RT-BID 09/07/17 10/16/17 History [Stiolto Respimat Inhal [place]] Verapamil Sr [Isoptin Sr] 240 mg PO DAILY 09/07/17 10/16/17 History Atorvastatin [Lipitor] 80 mg PO PC-SUPPER 10/03/17 10/16/17 History Lansoprazole [Prevacid] 30 mg PO DAILY PRN 10/03/17 10/16/17 History Mupirocin 2% Nasal Oint [Bactroban 1 applic NASAL BID 10/13/17 10/16/17 History 2% Nasal Oint] Allergies Allergy/AdvReac Type Severity Reaction Status Date / Time No Known Allergies Allergy Verified 10/16/17 16:32 Physical Exam Vitals: Vital Signs Temp Pulse Resp Pulse Ox 10/17/17 10:26 104 H 10/17/17 10:17 101 H 10/17/17 07:00 118 H 20 100 10/17/17 06:00 98 11 L 99 10/17/17 05:50 96 10/17/17 05:00 88 12 100 10/17/17 04:00 100 11 L 100 10/17/17 03:00 92 14 100 10/17/17 02:00 96 12 100 10/17/17 01:00 96 14 100 10/17/17 00:00 99.1 F 102 H 12 100 10/16/17 23:11 96 12 99 10/16/17 23:00 105 H 12 100 10/16/17 22:00 98 11 L 99 10/16/17 21:30 100 12 100 10/16/17 21:00 108 H 14 97 10/16/17 20:59 113 H 10/16/17 20:43 110 H 10/16/17 20:30 119 H 16 94 L 10/16/17 20:00 104 H 14 98 10/16/17 19:30 123 H 14 91 L 10/16/17 19:00 119 H 14 95 10/16/17 18:00 96 12 100 10/16/17 17:00 82 12 100 05/14/18 16:57 82 10/16/17 16:35 75 10/16/17 16:00 78 12 100 10/16/17 15:29 74 12 100 Intake and Output 10/16/17 10/17/17 10/17/17 22:59 06:59 14:59 Intake Total 894.159 786.333 171.467 Output Total 1358 649 92 Balance -463.841 137.333 79.467 Intake: IV 773 770 153 ACETAMINOPHEN IV (For NPO 100 100 100 ) 1,000 mg In Empty Bag 1 bag @ 400 mls/hr IVPB Q6HR BETITO Rx#:[id number] CO/CI 210 190 Lactated Ringers 1,000 ml 409 400 50 @ 20 mls/hr IV .Q24H BETITO Rx#:[id number] PRESSURE BAG 0.9% 54 60 3 ceFAZolin 2,000 mg In 20 Sodium Chloride 0.9% 30 ml @ Per Protocol IVPB ONCE ONE Rx#:[id number] Intake, IV Titration 121.159 16.333 18.467 Amount Clevidipine Butyrate 25 62.334 1 18.467 mg In Empty Bag 1 bag @ 1 MG/HR 2 mls/hr IV .Q24H BETITO Rx#:[id number] Insulin Regular 100 unit 4.975 15.333 In Sodium Chloride 0.9% 100 ml @ Per Protocol IV .Q0M BETITO Rx#:[id number] Propofol 1,000 mg In 53.85 Empty Bag 1 bag @ Titrate IV .Q0M BETITO Rx#: [id number] Output: Chest Tube Drainage 343 194 22 Mediastinal 254 170 20 Pleural Catheter Left 89 24 2 Drainage 110 10 Left Calf 110 10 Urine 905 445 70 Other: Voiding Method Indwelling Catheter Indwelling Catheter # Bowel Movements 0 0 Weight 103.1 kg ABP, PAP, CO, CI - Last 8 Hours Arterial Blood Pressure 139/63 Arterial Blood Pressure 158/62 Arterial Blood Pressure 129/55 Arterial Blood Pressure 125/57 Pulmonary Artery Pressure 44/23 Pulmonary Artery Pressure 37/23 Pulmonary Artery Pressure 34/19 Pulmonary Artery Pressure 34/22 Cardiac Output 6.8 Cardiac Output 6.4 Cardiac Index 3.3 Cardiac Index 3.2 Physical Exam: Revealed a 61-year-old white male in no distress. Head: Atraumatic normocephalic. HEENT: PERRLA, EOMI. [Neck is supple.] [No neck masses.] [No thyromegaly.] [No JVD.] Chest: [Diminished breath sounds at the bases, no crackles, no rhonchi, no wheezes.] No chest wall tenderness. Cardiac Exam: [Normal S1 and S2, no S3 gallop, 2/6 systolic murmur thought the precordium.] Abdomen: [Obese, Soft, nontender, no megaly, no rebound, no guarding, normal bowel sounds.] Extremities: [No clubbing, no edema, no cyanosis.] Neurological Exam: [No focal neurologic deficit.] Lymphatics: No lymphadenopathy. Psychiatric: Normal mood affect and mental status examination. Results - Laboratory Findings CBC and BMP: 10/17/17 04:05 10/17/17 04:05 ABG ABG pH 7.32 (7.35-7.45) L 10/16/17 20:10 ABG pCO2 48 mmHg (35-45) H 10/16/17 20:10 ABG pO2 67 mmHg (83-108) L 10/16/17 20:10 ABG O2 Saturation 92.6 % (94-97) L 10/16/17 20:10 PT/INR, D-dimer PT 11.1 sec (9.0-12.0) 10/17/17 04:05 INR 1.2 (<1.2) H 10/17/17 04:05 Abnormal lab findings: Abnormal Labs 10/12/17 10/16/17 10/16/17 09:26 08:35 10:44 WBC RBC Hgb Hct Plt Count Neutrophils # Lymphocytes # PT INR APTT ABG pH ABG pCO2 ABG pO2 401 H 386 H ABG HCO3 28 H 29 H ABG Total CO2 30 H 30 H ABG O2 Saturation 100.0 H 100.0 H ABG Hematocrit ABG Potassium ABG Ionized Calcium 4.4 L 4.4 L ABG Glucose 112 H 126 H ABG Lactic Acid Hemoglobin 12.2 L 11.5 L Creatinine Glucose POC Glucose (mg/dL) Calcium Magnesium Alkaline Phosphatase Total Protein Albumin Arterial Blood Potassium Arterial Blood Glucose 112 H 126 H Crossmatch See Detail 10/16/17 10/16/17 10/16/17 11:18 11:47 12:20 WBC RBC Hgb Hct Plt Count Neutrophils # Lymphocytes # PT INR APTT ABG pH 7.47 H ABG pCO2 ABG pO2 336 H 297 H 343 H ABG HCO3 27 H 27 H 27 H ABG Total CO2 29 H 28 H 29 H ABG O2 Saturation 100.0 H 100.0 H 100.0 H ABG Hematocrit 25 L 24 L 24 L ABG Potassium ABG Ionized Calcium 3.9 L 3.9 L 3.9 L ABG Glucose 113 H 176 H 167 H ABG Lactic Acid Hemoglobin 8.2 L 8.0 L 7.9 L Creatinine Glucose POC Glucose (mg/dL) Calcium Magnesium Alkaline Phosphatase Total Protein Albumin Arterial Blood Potassium Arterial Blood Glucose 113 H 176 H 167 H Crossmatch 10/16/17 10/16/17 10/16/17 12:53 14:06 15:07 WBC RBC Hgb Hct Plt Count Neutrophils # Lymphocytes # PT INR APTT ABG pH 7.33 L ABG pCO2 47 H 51 H ABG pO2 315 H 388 H ABG HCO3 27 H 27 H ABG Total CO2 29 H 28 H ABG O2 Saturation 100.0 H 100.0 H ABG Hematocrit 23 L 25 L ABG Potassium 4.6 H ABG Ionized Calcium 3.9 L 4.4 L ABG Glucose 193 H 138 H ABG Lactic Acid 2.0 H 2.1 H Hemoglobin 7.5 L 8.1 L Creatinine Glucose POC Glucose (mg/dL) 102 H Calcium Magnesium Alkaline Phosphatase Total Protein Albumin Arterial Blood Potassium 4.6 H Arterial Blood Glucose 193 H 138 H Crossmatch 10/16/17 10/16/17 10/16/17 15:08 15:08 15:08 WBC RBC 2.64 L Hgb 7.5 L D Hct 22.4 L Plt Count 70 L D Neutrophils # Lymphocytes # 0.9 L PT 12.9 H INR 1.4 H APTT 39.5 H ABG pH ABG pCO2 ABG pO2 ABG HCO3 ABG Total CO2 ABG O2 Saturation ABG Hematocrit ABG Potassium ABG Ionized Calcium ABG Glucose ABG Lactic Acid Hemoglobin Creatinine 0.55 L Glucose POC Glucose (mg/dL) Calcium 7.4 L Magnesium 2.5 H Alkaline Phosphatase 28 L Total Protein 4.7 L Albumin 3.1 L Arterial Blood Potassium Arterial Blood Glucose Crossmatch 10/16/17 10/16/17 10/16/17 15:50 17:59 18:03 WBC RBC 3.03 L Hgb 8.6 L Hct 26.1 L Plt Count 89 L Neutrophils # Lymphocytes # 0.8 L PT INR APTT ABG pH ABG pCO2 ABG pO2 384 H ABG HCO3 27 H ABG Total CO2 29 H ABG O2 Saturation 100.0 H ABG Hematocrit ABG Potassium ABG Ionized Calcium ABG Glucose ABG Lactic Acid Hemoglobin Creatinine Glucose POC Glucose (mg/dL) 105 H Calcium Magnesium Alkaline Phosphatase Total Protein Albumin Arterial Blood Potassium Arterial Blood Glucose Crossmatch 10/16/17 10/16/17 10/16/17 19:00 19:57 20:10 WBC RBC Hgb Hct Plt Count Neutrophils # Lymphocytes # PT INR APTT ABG pH 7.32 L ABG pCO2 48 H ABG pO2 67 L ABG HCO3 ABG Total CO2 26 H ABG O2 Saturation 92.6 L ABG Hematocrit ABG Potassium ABG Ionized Calcium ABG Glucose ABG Lactic Acid Hemoglobin Creatinine Glucose POC Glucose (mg/dL) 130 H 159 H Calcium Magnesium Alkaline Phosphatase Total Protein Albumin Arterial Blood Potassium Arterial Blood Glucose Crossmatch 10/16/17 10/16/17 10/16/17 20:34 21:01 21:02 WBC 12.7 H RBC 2.95 L Hgb 8.4 L Hct 25.3 L Plt Count 129 L Neutrophils # 11.2 H Lymphocytes # 0.8 L PT INR APTT ABG pH ABG pCO2 ABG pO2 ABG HCO3 ABG Total CO2 ABG O2 Saturation ABG Hematocrit ABG Potassium ABG Ionized Calcium ABG Glucose ABG Lactic Acid Hemoglobin Creatinine Glucose POC Glucose (mg/dL) 165 H 160 H Calcium Magnesium Alkaline Phosphatase Total Protein Albumin Arterial Blood Potassium Arterial Blood Glucose Crossmatch 10/16/17 10/16/17 10/16/17 22:00 23:00 23:59 WBC RBC Hgb Hct Plt Count Neutrophils # Lymphocytes # PT INR APTT ABG pH ABG pCO2 ABG pO2 ABG HCO3 ABG Total CO2 ABG O2 Saturation ABG Hematocrit ABG Potassium ABG Ionized Calcium ABG Glucose ABG Lactic Acid Hemoglobin Creatinine Glucose POC Glucose (mg/dL) 147 H 133 H 127 H Calcium Magnesium Alkaline Phosphatase Total Protein Albumin Arterial Blood Potassium Arterial Blood Glucose Crossmatch 10/17/17 10/17/17 10/17/17 01:02 01:57 02:52 WBC RBC Hgb Hct Plt Count Neutrophils # Lymphocytes # PT INR APTT ABG pH ABG pCO2 ABG pO2 ABG HCO3 ABG Total CO2 ABG O2 Saturation ABG Hematocrit ABG Potassium ABG Ionized Calcium ABG Glucose ABG Lactic Acid Hemoglobin Creatinine Glucose POC Glucose (mg/dL) 125 H 128 H 115 H Calcium Magnesium Alkaline Phosphatase Total Protein Albumin Arterial Blood Potassium Arterial Blood Glucose Crossmatch 10/17/17 10/17/17 10/17/17 04:05 04:05 04:05 WBC RBC 2.70 L Hgb 7.6 L Hct 23.2 L Plt Count 82 L Neutrophils # Lymphocytes # 0.6 L PT INR 1.2 H APTT ABG pH ABG pCO2 ABG pO2 ABG HCO3 ABG Total CO2 ABG O2 Saturation ABG Hematocrit ABG Potassium ABG Ionized Calcium ABG Glucose ABG Lactic Acid Hemoglobin Creatinine 0.60 L Glucose 108 H POC Glucose (mg/dL) Calcium 7.7 L Magnesium Alkaline Phosphatase Total Protein 4.8 L Albumin 3.0 L Arterial Blood Potassium Arterial Blood Glucose Crossmatch 10/17/17 10/17/17 10/17/17 04:05 06:10 07:32 WBC RBC Hgb Hct Plt Count Neutrophils # Lymphocytes # PT INR APTT ABG pH ABG pCO2 ABG pO2 ABG HCO3 ABG Total CO2 ABG O2 Saturation ABG Hematocrit ABG Potassium ABG Ionized Calcium ABG Glucose ABG Lactic Acid Hemoglobin Creatinine Glucose POC Glucose (mg/dL) 118 H 125 H 114 H Calcium Magnesium Alkaline Phosphatase Total Protein Albumin Arterial Blood Potassium Arterial Blood Glucose Crossmatch 10/17/17 09:51 WBC RBC Hgb Hct Plt Count Neutrophils # Lymphocytes # PT INR APTT ABG pH ABG pCO2 ABG pO2 ABG HCO3 ABG Total CO2 ABG O2 Saturation ABG Hematocrit ABG Potassium ABG Ionized Calcium ABG Glucose ABG Lactic Acid Hemoglobin Creatinine Glucose POC Glucose (mg/dL) 143 H Calcium Magnesium Alkaline Phosphatase Total Protein Albumin Arterial Blood Potassium Arterial Blood Glucose Crossmatch - Diagnostic Findings Chest x-ray: image reviewed (Chest x-ray showed minimal atelectasis at the left base, mediastinal drain and left-sided chest tube noted to be intact.) Assessment and Plan Assessment: Impression: 1 status post CABG, postoperative day #1. 2 ischemic cardiomyopathy and ejection fraction of 40%. 3 minimal postoperative atelectasis, expected. 4 history of COPD, Gold stage III FEV1 is in the range of 50%. 5 history of obstructive sleep apnea, on BiPAP. 6 essential hypertension 7 hyperlipidemia 8 obesity, BMI is 33.3 9 remote smoking history. Recommendation: Continue present treatment plan including bronchodilators, incentive spirometry, early ambulation, nutritional support, we will continue to follow. Time with Patient: Greater than 30
[2017-10-17 11:55] VITALS: BMI 36.6
[2017-10-17 13:55] LABS: Glucose,Whole Blood 137 mg/dL (75-99)
[2017-10-17] MEDS ORDERED: HYDROcodone/APAP 5-325MG 1 EACH TAB PO PRN ×2 (14:25)
[2017-10-17] MEDS ORDERED: IPRATROPIUM-ALBUTEROL 3 ML NEB INHALATION PRN (14:26)
[2017-10-17] MEDS ORDERED: BISACODYL 10 MG SUPP RECTAL PRN (14:26)
[2017-10-17] MEDS ORDERED: MAGNESIUM HYDROXIDE 2,400 MG/10 ML CUP PO PRN (14:26)
--- NOTE | 2017-10-17 16:27 | P.CRDCN ---
History of Present Illness Consult date: 10/17/17 History of present illness: This is a 61-year-old gentleman with history of hypertension, hyperlipidemia and also congestive heart failure and COPD was noted to have triple-vessel disease by Dr. Barbosa including total occlusion of the right coronary artery and left anterior descending coronary artery. Patient underwent prior to coronary bypass surgery with the DAWN graft the LAD, vein graft to the PDA and vein graft to the OM branch. Patient tolerated the procedure well. This morning patient is extubated and sitting in the chair. Denies any significant chest pain. Patient is maintaining sinus rhythm. His vital signs are stable. [place] is already removed. Cardiac index is satisfactory. Patient is on beta emmanuel. We'll continue current medical therapy. Continue monitoring for any arrhythmias. Incentive spirometry Review of Systems REVIEW OF SYSTEMS: CONSTITUTIONAL:. Patient is doing well. No complaints of fever or chills EYES: Denies diplopia, blurring of vision EARS, NOSE, MOUTH, THROAT: Denies headaches, denies sore throat. CARDIOVASCULAR: Denies chest pain, denies shortness of breath, denies palpitations RESPIRATORY: Denies shortness of breath, denies cough. GASTROINTESTINAL: Denies change in appetite, denies abdominal pain, denies diarrhea GENITOURINARY: Denies hematuria, denies infections. MUSKULOSKELETAL: Denies pain, denies swelling. Denies any cramps or claudication INTEGUMENTARY: Denies rash, denies eczema. NEUROLOGICAL: Denies focal weakness, or visual disturbance. Denies any dizziness or syncope PSYCHIATRIC: Denies anxiety, denies depression. HEMATOLOGIC/LYMPHATIC: Denies any bleeding, denies enlarged lymph nodes. Past Medical History Past Medical History: Asthma, Heart Failure, COPD, GERD/Reflux, Hyperlipidemia, Hypertension, Sleep Apnea/CPAP/BIPAP Additional Past Medical History / Comment(s): SOB with activity,uses cpap History of Any Multi-Drug Resistant Organisms: None Reported Past Surgical History: Appendectomy, Heart Catheterization, Hernia Repair Additional Past Surgical History / Comment(s): vasectomy Past Anesthesia/Blood Transfusion Reactions: No Reported Reaction Smoking Status: Former smoker - Past Family History Mother Family Medical History: No Reported History Father Family Medical History: Cancer Additional Family Medical History / Comment(s): lung Medications and Allergies Home Medications Medication Instructions Recorded Confirmed Type Albuterol Sulfate [Proair Hfa] 1 - 2 puff INHALATION RT-Q6H PRN 09/07/17 History Aspirin 324 mg PO DAILY 09/07/17 10/16/17 History Furosemide [Lasix] 20 mg PO DAILY PRN 09/07/17 10/16/17 History Metoprolol Tartrate [Lopressor] 100 mg PO DAILY 09/07/17 10/16/17 History Tiotropium Br/Olodaterol HCl 1 puff INHALATION RT-BID 09/07/17 10/16/17 History [Stiolto Respimat Inhal Ashley] Verapamil Sr [Isoptin Sr] 240 mg PO DAILY 09/07/17 10/16/17 History Atorvastatin [Lipitor] 80 mg PO PC-SUPPER 10/03/17 10/16/17 History Lansoprazole [Prevacid] 30 mg PO DAILY PRN 10/03/17 10/16/17 History Mupirocin 2% Nasal Oint [Bactroban 1 applic NASAL BID 10/13/17 10/16/17 History 2% Nasal Oint] Allergies Allergy/AdvReac Type Severity Reaction Status Date / Time No Known Allergies Allergy Verified 10/16/17 16:32 Physical Exam Vitals: Vital Signs Temp Pulse Resp Pulse Ox 10/17/17 16:20 101 H 10/17/17 14:00 99 15 94 L 10/17/17 13:00 100 15 10/17/17 12:00 99.0 F 108 H 16 95 10/17/17 11:00 120 H 11 L 10/17/17 10:26 104 H 10/17/17 10:17 101 H 10/17/17 10:00 99 15 10/17/17 09:00 96 13 10/17/17 08:00 111 H 12 10/17/17 07:00 118 H 20 100 10/17/17 06:00 98 11 L 99 10/17/17 05:50 96 10/17/17 05:00 88 12 100 10/17/17 04:00 100 11 L 100 10/17/17 03:00 92 14 100 10/17/17 02:00 96 12 100 10/17/17 01:00 96 14 100 10/17/17 00:00 99.1 F 102 H 12 100 10/16/17 23:11 96 12 99 10/16/17 23:00 105 H 12 100 10/16/17 22:00 98 11 L 99 10/16/17 21:30 100 12 100 10/16/17 21:00 108 H 14 97 10/16/17 20:59 113 H 10/16/17 20:43 110 H 10/16/17 20:30 119 H 16 94 L 10/16/17 20:00 104 H 14 98 10/16/17 19:30 123 H 14 91 L 10/16/17 19:00 119 H 14 95 10/16/17 18:00 96 12 100 10/16/17 17:00 82 12 100 10/16/17 16:57 82 10/16/17 16:35 75 Intake and Output 10/17/17 10/17/17 10/17/17 06:59 14:59 22:59 Intake Total 786.333 416.467 Output Total 649 557 Balance 137.333 -140.533 Intake: IV 770 398 ACETAMINOPHEN IV (For NPO 100 200 ) 1,000 mg In Empty Bag 1 bag @ 400 mls/hr IVPB Q6HR BETITO Rx#:[id number] CO/CI 190 Lactated Ringers 1,000 ml 400 150 @ 20 mls/hr IV .Q24H BETITO Rx#:[id number] PRESSURE BAG 0.9% 60 48 ceFAZolin 2,000 mg In 20 Sodium Chloride 0.9% 30 ml @ Per Protocol IVPB ONCE ONE Rx#:[id number] Intake, IV Titration 16.333 18.467 Amount Clevidipine Butyrate 25 1 18.467 mg In Empty Bag 1 bag @ 1 MG/HR 2 mls/hr IV .Q24H BETITO Rx#:[id number] Insulin Regular 100 unit 15.333 In Sodium Chloride 0.9% 100 ml @ Per Protocol IV .Q0M BETITO Rx#:[id number] Output: Chest Tube Drainage 194 102 Mediastinal 170 100 Pleural Catheter Left 24 2 Drainage 10 20 Left Calf 10 20 Urine 445 435 Other: Voiding Method Indwelling Catheter Indwelling Catheter # Bowel Movements 0 0 Weight 103.1 kg 103.1 kg ABP, PAP, CO, CI - Last 8 Hours Arterial Blood Pressure 125/59 Arterial Blood Pressure 124/56 Arterial Blood Pressure 127/53 Arterial Blood Pressure 122/45 Arterial Blood Pressure 123/51 Arterial Blood Pressure 123/41 GENERAL EXAM: Patient is alert and oriented and doesn't appear to be in any acute distress HEENT: Normocephalic. Normal reaction of pupils, equal size, normal range of extraocular motion. No erythema or exudates in the throat. NECK: No masses, no nuchal rigidity. CHEST: No chest wall deformity. LUNGS: Diminished breath sounds at bases HEART: Distant heart sounds ABDOMEN: No hepatosplenomegaly, normal bowel sounds, no guarding or rigidity. SKIN: No rashes CENTRAL NERVOUS SYSTEM: No focal deficits. EXTREMITIES: No cyanosis, clubbing or edema. Results 10/17/17 04:05 10/17/17 04:05 Cardiac Enzymes 10/17/17 Range/Units 04:05 AST 37 (17-59) U/L Coagulation 10/17/17 Range/Units 04:05 PT 11.1 (9.0-12.0) sec APTT 27.8 (22.0-30.0) sec CBC 10/16/17 10/16/17 10/17/17 Range/Units 17:59 21:02 04:05 WBC 8.0 12.7 H 8.5 (3.8-10.6) k/uL RBC 3.03 L 2.95 L 2.70 L (4.30-5.90) m/uL Hgb 8.6 L 8.4 L 7.6 L (13.0-17.5) gm/dL Hct 26.1 L 25.3 L 23.2 L (39.0-53.0) % Plt Count 89 L 129 L 82 L (150-450) k/uL Comprehensive Metabolic Panel 10/17/17 Range/Units 04:05 Sodium 143 (137-145) mmol/L Potassium 4.1 (3.5-5.1) mmol/L Chloride 105 (98-107) mmol/L Carbon Dioxide 28 (22-30) mmol/L BUN 13 (9-20) mg/dL Creatinine 0.60 L (0.66-1.25) mg/dL Glucose 108 H (74-99) mg/dL Calcium 7.7 L (8.4-10.2) mg/dL AST 37 (17-59) U/L ALT 31 (21-72) U/L Alkaline Phosphatase 41 (38-126) U/L Total Protein 4.8 L (6.3-8.2) g/dL Albumin 3.0 L (3.5-5.0) g/dL Current Medications Generic Name Dose Route Start Last Admin Trade Name Freq PRN Reason Stop Dose Admin Hydrocodone Bitart/Acetaminophen 2 each 10/17/17 14:25 [place] 5-325 PO Q4HR PRN Severe Pain Hydrocodone Bitart/Acetaminophen 1 each 10/17/17 14:25 [place] 5-325 PO Q4HR PRN Moderate Pain Albuterol/Ipratropium 3 ml 10/17/17 14:26 10/17/17 16:18 Duoneb 0.5 Mg-3 Mg/3 Ml Soln INHALATION 3 ml RT-Q2H PRN Administration Shortness Of Breath Or Wheezing Albuterol/Ipratropium 3 ml 10/17/17 12:00 10/17/17 10:17 Duoneb 0.5 Mg-3 Mg/3 Ml Soln INHALATION 3 ml RT-QID BETITO Administration Aspirin 81 mg 10/17/17 09:00 10/17/17 07:53 Aspirin PO 81 mg DAILY BETITO Administration Atorvastatin Calcium 40 mg 10/17/17 09:00 10/17/17 07:49 Lipitor PO 40 mg DAILY BETITO Administration Benzocaine/Menthol 1 each 10/16/17 14:32 Cepacol Lozenge MUCOUS MEM Q2H PRN Sore Throat Bisacodyl 10 mg 10/17/17 14:26 Dulcolax RECTAL DAILY PRN Constipation Clopidogrel Bisulfate 75 mg 10/17/17 09:00 10/17/17 07:49 Plavix PO 75 mg DAILY BETITO Administration Heparin Sodium (Porcine) 5,000 unit 10/17/17 00:00 10/17/17 16:17 Heparin SQ 5,000 unit Q8HR BETITO Administration Acetaminophen 1,000 mg/ IV 100 mls @ 400 mls/hr 10/16/17 18:00 10/17/17 12:39 Solution IVPB 10/17/17 18:01 400 mls/hr Q6HR BETITO Administration Albumin Human 250 ml/ IV 250 mls @ 250 mls/hr 10/16/17 14:32 Solution IVPB 10/18/17 14:33 Q1HR PRN For Volume Amiodarone HCl 150 mg/ 103 mls @ 618 mls/hr 10/16/17 14:32 Dextrose/Water IV .Q10M PRN Per protocol Protocol Amiodarone HCl 450 mg/ 259 mls @ 34.53 mls/hr 10/16/17 15:29 Dextrose/Water IV .Q7H31M PRN Per Protocol Protocol 1 MG/MIN Clevidipine 25 mg/ IV Solution 50 mls @ 2 mls/hr 10/16/17 14:32 10/17/17 11: 23 IV Infused .Q24H BETITO Titration Protocol 1 MG/HR Insulin Human Regular 100 unit 101 mls @ 0 mls/hr 10/16/17 14:32 10/17/17 06: 24 / Sodium Chloride IV 1 ml/hr .Q0M BETITO 1 mls/hr Protocol Titration Per Protocol Lactated Ringer's 1,000 mls @ 20 mls/hr 10/16/17 14:32 10/16/17 16:01 Lactated Ringers IV 50 mls/hr .Q24H BETITO Administration Magnesium Hydroxide 2,400 mg 10/17/17 14:26 Milk Of Magnesia PO BID PRN Constipation Metoclopramide HCl 10 mg 10/16/17 14:32 Reglan IVP Q4H PRN Nausea And Vomiting Metoprolol Tartrate 25 mg 10/17/17 21:00 Lopressor PO BID BETITO Miscellaneous Information 1 each 10/16/17 14:32 Magnesium Per Protocol MISCELLANE DAILY PRN Per Protocol Protocol Miscellaneous Information 1 each 10/16/17 14:32 Phosphorus Per Protocol MISCELLANE DAILY PRN Per Protocol Protocol Miscellaneous Information 1 each 10/16/17 14:32 Potassium Per Protocol MISCELLANE DAILY PRN Per Protocol Protocol Mupirocin 1 applic 10/16/17 21:00 10/17/17 07:49 Bactroban Oint NASAL 10/19/17 21:01 1 applic BID BETITO Administration Ondansetron HCl 4 mg 10/16/17 14:32 10/17/17 07:48 Zofran IVP 4 mg Q6HR PRN Administration Nausea And Vomiting Pantoprazole Sodium 40 mg 10/17/17 09:00 10/17/17 07:49 Protonix IVP 40 mg DAILY BETITO Administration Senna/Docusate Sodium 2 each 10/17/17 21:00 Senokot-S PO HS BETITO Sodium Chloride 10 ml 10/16/17 21:00 10/17/17 07:50 Saline Flush IV 10 ml BID BETITO Administration Intake and Output 10/17/17 10/17/17 10/17/17 06:59 14:59 22:59 Intake Total 786.333 416.467 Output Total 649 557 Balance 137.333 -140.533 Intake: IV 770 398 ACETAMINOPHEN IV (For NPO 100 200 ) 1,000 mg In Empty Bag 1 bag @ 400 mls/hr IVPB Q6HR BETITO Rx#:[id number] CO/CI 190 Lactated Ringers 1,000 ml 400 150 @ 20 mls/hr IV .Q24H BETITO Rx#:[id number] PRESSURE BAG 0.9% 60 48 ceFAZolin 2,000 mg In 20 Sodium Chloride 0.9% 30 ml @ Per Protocol IVPB ONCE ONE Rx#:[id number] Intake, IV Titration 16.333 18.467 Amount Clevidipine Butyrate 25 1 18.467 mg In Empty Bag 1 bag @ 1 MG/HR 2 mls/hr IV .Q24H BETITO Rx#:[id number] Insulin Regular 100 unit 15.333 In Sodium Chloride 0.9% 100 ml @ Per Protocol IV .Q0M BETITO Rx#:[id number] Output: Chest Tube Drainage 194 102 Mediastinal 170 100 Pleural Catheter Left 24 2 Drainage 10 20 Left Calf 10 20 Urine 445 435 Other: Voiding Method Indwelling Catheter Indwelling Catheter # Bowel Movements 0 0 Weight 103.1 kg 103.1 kg Patient Weight 10/18/17 06:59 Weight 103.1 kg 10/17/17 04:05 10/17/17 04:05 EKG Interpretations (text) Sinus rhythm Assessment and Plan (1) H/O heart bypass surgery Current Visit: Yes Status: Acute Code(s): Z95.1 - PRESENCE OF AORTOCORONARY BYPASS GRAFT SNOMED Code(s): 952513443 (2) History of CHF (congestive heart failure) Current Visit: Yes Status: Acute Code(s): Z86.79 - PERSONAL HISTORY OF OTHER DISEASES OF THE CIRCULATORY SYSTEM SNOMED Code(s): 135862808 (3) Hypertension Current Visit: Yes Status: Acute Code(s): I10 - ESSENTIAL (PRIMARY) HYPERTENSION SNOMED Code(s): 93014060 Plan: Patient is clinically doing well. No arrhythmias. Currently on metoprolol and Lasix. We'll add JIMI inhibitor and also lipid-lowering agent. Increase activity as tolerated
[2017-10-17 16:29] LABS: Glucose,Whole Blood 122 mg/dL (75-99)
[2017-10-17 18:24] LABS: Glucose,Whole Blood 116 mg/dL (75-99)
[2017-10-17] MEDS: METOPROLOL TARTRATE 25 MG TAB PO SCH ×2 (18:34→21:15)
[2017-10-17] MEDS: LACTATED RINGERS 1,000 ML IV SCH (18:35)
--- NOTE | 2017-10-17 19:31 | PN ---
PROGRESS NOTE DATE OF SERVICE: 10/17/2017 PRESENTING COMPLAINT: Coronary artery bypass. INTERVAL HISTORY: Patient is status post coronary artery bypass, doing well. [place] was taken off earlier. Chest tube remains in place. Telemetry shows sinus rhythm. Patient's insulin drip 1 unit/hour. Eating well. On oxygen 2 L. Patient did walk a bit today. REVIEW OF SYSTEMS: Done for constitutional, cardiovascular, GI, pulmonary; relevant findings as above. CURRENT MEDICATIONS: Reviewed. They include: 1. DuoNeb. 2. Amiodarone. 3. Aspirin. 4. Lipitor. 5. Plavix. 6. Subcutaneous heparin. 7. Lopressor. PHYSICAL EXAMINATION: Temperature 99, pulse 102, respiration 21, blood pressure 123/52, pulse ox 93% on 2 L. GENERAL APPEARANCE: Sitting up in a chair. Awake. Tired-appearing. EYES: Pupils equal. Conjunctivae normal. HEENT: External appearance of nose and ears normal. Oral cavity normal. NECK: JVD difficult to assess. Mass not palpable. RESPIRATORY: Effort increased. LUNGS: Decreased breath sounds. CARDIOVASCULAR: First and second sounds normal. No edema. ABDOMEN: Soft, nontender. Liver and spleen not palpable. Chest tubes are in place. PSYCHIATRIC: Alert and oriented x3. Mood and affect normal. INVESTIGATIONS: White count 8.5, hemoglobin 7.6, platelets 82. Potassium 4.1. Accu-Cheks are noted. Albumin 3.0. ASSESSMENT: 1. Status post triple coronary artery bypass with [address] 2. Ischemic cardiomyopathy; ejection fraction 40%. 3. Obstructive sleep apnea; uses BiPAP machine. 4. Gastroesophageal reflux disease. 5. Chronic obstructive pulmonary disease in an ex-smoker. 6. Essential hypertension. 7. Hyperlipidemia. 8. Obesity; body mass index 33.3. 9. Acute postoperative blood loss anemia, expected from surgery. 10.Dilutional thrombocytopenia. 11.Hypoalbuminemia as an acute phase reactant. PLAN: Patient is overall doing much better. Care was discussed with the patient and daughter at the bedside. Questions were answered. Continue current medication and treatment plan. Patient to remain on insulin drip for the hyperglycemia. MMODL / IJN: [id number] /
[2017-10-17 19:51] LABS: Glucose,Whole Blood 116 mg/dL (75-99)
[2017-10-17] MEDS: SENNOSIDES-DOCUSATE SODIUM 1 EACH TAB PO SCH (20:00)
[2017-10-17 20:56] LABS: Glucose,Whole Blood 104 mg/dL (75-99)
[2017-10-17] MEDS ORDERED: METOPROLOL TARTRATE 25 MG TAB PO SCH (21:00)
[2017-10-17 22:04] LABS: Glucose,Whole Blood 114 mg/dL (75-99)
[2017-10-17 23:04] LABS: Glucose,Whole Blood 124 mg/dL (75-99)
[2017-10-17 23:57] LABS: Glucose,Whole Blood 128 mg/dL (75-99)
[2017-10-18 00:57] LABS: Glucose,Whole Blood 125 mg/dL (75-99)
[2017-10-18 02:08] LABS: Glucose,Whole Blood 122 mg/dL (75-99)
[2017-10-18 03:01] LABS: Glucose,Whole Blood 114 mg/dL (75-99)
[2017-10-18 04:10] LABS: Glucose,Whole Blood 118 mg/dL (75-99)
[2017-10-18 04:28] LABS: Basophils % (A) 0 %; Eosinophils # (A) 0.1 k/uL (0-0.7); Eosinophils % (A) 1 %; HCT 21.5 % (39.0-53.0); HGB 7.1 gm/dL (13.0-17.5); Lymphocytes # (A) 1.2 k/uL (1.0-4.8); Lymphocytes % (A) 11 %; MCH 28.2 pg (25.0-35.0); MCV 85.6 fL (80.0-100.0); Mean Platelet Volume 8.4; Monocytes # (A) 0.7 k/uL (0-1.0); Monocytes % (A) 6 %; Neutrophils # (A) 8.9 k/uL (1.3-7.7); Neutrophils % (A) 81 %; Platelet Count 102 k/uL (150-450); RBC 2.51 m/uL (4.30-5.90); RDW 13.8 % (11.5-15.5); WBC 10.9 k/uL (3.8-10.6)
[2017-10-18 04:50] LABS: Ionized Calcium 4.9 mg/dL (4.5-5.3)
[2017-10-18 05:01] LABS: Glucose,Whole Blood 112 mg/dL (75-99)
[2017-10-18 05:04] LABS: ALT 29 U/L (21-72); AST 26 U/L (17-59); Albumin 2.8 g/dL (3.5-5.0); Alkaline Phosphatase 58 U/L (38-126); Anion Gap 7 mmol/L; Blood Urea Nitrogen 16 mg/dL (9-20); Calcium 8.4 mg/dL (8.4-10.2); Carbon Dioxide 31 mmol/L (22-30); Chloride 100 mmol/L (98-107); Glucose 114 mg/dL (74-99); Magnesium 2.2 mg/dL (1.6-2.3); Sodium 138 mmol/L (137-145); Total Bilirubin 0.6 mg/dL (0.2-1.3); Total Protein 4.9 g/dL (6.3-8.2)
[2017-10-18 06:00] LABS: Glucose,Whole Blood 104 mg/dL (75-99)
[2017-10-18 07:03] LABS: Glucose,Whole Blood 98 mg/dL (75-99)
--- NOTE | 2017-10-18 07:38 | XR ---
EXAMINATION TYPE: XR chest 1V portable DATE OF EXAM: 10/18/2017 CLINICAL HISTORY: Difficulty breathing , post open cardiac surgery progress study. TECHNIQUE: Single AP portable upright view of the chest is obtained. COMPARISON: Chest x-ray from one day earlier and older studies. FINDINGS: There is interval removal of right internal jugular [place]-Yael catheter, cordis sheath is n ow present. There is persistent left basilar chest tube and mediastinal drainage catheter. Post CABG changes with mediastinal clips and sternal wires is redemonstrated. Overlying EKG leads are again see n. Cardiac silhouette size is stable and mildly enlarged. There is mild central vascular congestion that remains present with small bilateral pleural effusions. There is patchy left basilar atelectasis. Th ere is no new suspicious focal airspace opacity or sizable pneumothorax. Osseous structures are intac t. IMPRESSION: Interval removal of right internal jugular [place]-Yael catheter. Other findings stable as t here is mild cardiomegaly with mild central vascular congestion and small bilateral pleural effusions with associated patchy left basilar atelectasis all redemonstrated.
[2017-10-18] MEDS: IPRATROPIUM-ALBUTEROL 3 ML NEB INHALATION SCH ×4 (08:02→19:47)
[2017-10-18] MEDS: ASPIRIN 81 MG PO SCH (08:26)
[2017-10-18] MEDS: CLOPIDOGREL 75 MG TAB PO SCH (08:26)
[2017-10-18] MEDS: ATORVASTATIN 40 MG TAB PO SCH (08:26)
[2017-10-18] MEDS: KETOROLAC 30 MG/ML 1 ML VIAL IVP SCH ×4 (08:26→23:21)
[2017-10-18] MEDS: HEPARIN SODIUM,PORCINE 5,000 UNIT/ML 1 ML VIAL SQ SCH ×3 (08:26→23:21)
[2017-10-18] MEDS: METOPROLOL TARTRATE 25 MG TAB PO SCH (08:27)
[2017-10-18] MEDS: PANTOPRAZOLE 40 MG/10 ML VIAL IVP SCH (08:27)
[2017-10-18] MEDS: MUPIROCIN 2% OINT 22 GM TUBE NASAL SCH ×2 (08:27→20:08)
[2017-10-18] MEDS ORDERED: FUROSEMIDE 10 MG/ML 4 ML VIAL IV STA (09:17)
[2017-10-18] MEDS ORDERED: METOPROLOL TARTRATE 25 MG TAB PO STA (09:18)
--- NOTE | 2017-10-18 10:41 | P.PN ---
Subjective Progress Note Date: 10/18/17 Principal diagnosis: Triple-vessel coronary artery disease. Totally occluded right coronary artery and left anterior descending artery. Mild to moderate left ventricular dysfunction on ventriculogram with EF 40-45%. Severe chronic obstructive pulmonary disease with preoperative FEV1 49% of predicted. Asthma. Obstructive sleep apnea. Hypertension. Hyperlipidemia. Previous tobacco dependence. Family history of coronary artery disease. Obesity. Preop nasal swab positive for MSSA. POD #2 elective triple coronary artery bypass grafting using the left internal mammary artery to the left anterior descending artery, reverse saphenous vein graft from the aorta to the posterior descending artery, reverse saphenous vein graft from the aorta to the second obtuse marginal artery. Endoscopic harvesting of the left greater saphenous vein. Intraoperative transesophageal echocardiogram and epi-aortic scanning. Intraoperative graft flow measurements using the [employer] system. Acute blood loss anemia, an expected outcome of surgery secondary to hemodilution and bypass pump. The patient is currently sitting up in the recliner in no acute distress. States he does have some sternal incisional pain, denies shortness of breath. Weaned off Cleviprex yesterday. No new complaints. Has ambulated in the hallway. Objective - Vital Signs Vital signs: Vital Signs Temp 98.6 F 10/18/17 04:00 Pulse 108 H 10/18/17 09:00 Resp 23 10/18/17 09:00 BP 141/84 10/16/17 05:50 Pulse Ox 92 L 10/18/17 09:00 Intake & Output 10/17/17 10/18/17 10/18/17 18:59 06:59 18:59 Intake Total 520.467 353.141 52 Output Total 727 720 120 Balance -206.533 -366.859 -68 Weight 103.1 kg 103.2 kg Intake: IV 502 338 52 ACETAMINOPHEN IV (For NPO 200 ) 1,000 mg In Empty Bag 1 bag @ 400 mls/hr IVPB Q6HR [facility] Rx#:[id number] Lactated Ringers 1,000 ml 230 260 40 @ 20 mls/hr IV .Q24H [facility] Rx#:[id number] PRESSURE BAG 0.9% 72 78 12 Intake, IV Titration 18.467 15.141 Amount Clevidipine Butyrate 25 18.467 mg In Empty Bag 1 bag @ 1 MG/HR 2 mls/hr IV .Q24H [facility] Rx#:[id number] Insulin Regular 100 unit 15.141 In Sodium Chloride 0.9% 100 ml @ Per Protocol IV .Q0M [facility] Rx#:[id number] Output: Chest Tube Drainage 102 140 Mediastinal 100 80 Pleural Catheter Left 2 60 Drainage 20 70 Left Calf 20 70 Urine 605 510 120 Other: Voiding Method Indwelling Catheter Indwelling Catheter Indwelling Catheter # Bowel Movements 0 0 ABP, PAP, CO, CI - Last Documented Arterial Blood Pressure 126/52 Pulmonary Artery Pressure 32/16 Cardiac Output 6.8 Cardiac Index 3.3 - Constitutional General appearance: Present: cooperative, no acute distress, obese - Respiratory Details: Lungs sounds diminished bilaterally. Respirations even, nonlabored. Currently on 2 L nasal cannula with oxygen saturation 95%. Able to achieve 750 mL on his incentive spirometry. Mediastinal chest tube to continuous wall suction, 40 mL serosanguineous drainage overnight, 150 mL since surgery. Left pleural chest tube to continuous wall suction, 40 mL serosanguineous drainage overnight, 70 mL since surgery. No air leaks present. - Cardiovascular Details: S1, S2 present. Tachycardia but regular rate and rhythm, sinus tach on telemetry. Sternum stable. A/V epicardial pacemaker wires present, connected to generator, VVI mode with backup rate 50 bpm. Palpable peripheral pulses bilaterally. Trace bilateral lower extremity edema present. No calf pain or tenderness noted. Right internal jugular Cordis, right radial arterial line present. Heart hugger in place with patient demonstrating appropriate use. Antiembolism stockings, SCDs present. - Gastrointestinal Gastrointestinal Comment(s): Abdomen soft, nontender, nondistended. Hypoactive bowel sounds present 4 quadrants. Tolerating clear liquids. Negative flatus yet. - Genitourinary Genitourinary Comment(s): Longo present draining clear, yellow urine. Output 30-45 mL per hour overnight. - Integumentary Integumentary Comment(s): Skin is warm and dry with evidence of good perfusion. Anterior chest incision well approximated and covered with dry intact dressing. Left lower extremity EVH site well approximated, CHASIDY drain present with minimal drainage. - Neurologic Neurologic: Present: CNII-XII intact - Musculoskeletal Musculoskeletal: Present: gait normal, strength equal bilaterally - Psychiatric Psychiatric: Present: A&O x's 3, appropriate affect, intact judgment & insight - Allied health notes Allied health notes reviewed: nursing - Labs CBC & Chem 7: 10/18/17 04:00 10/18/17 04:00 Labs: Abnormal Lab Results - Last 24 Hours (Table) 10/17/17 10/17/17 10/17/17 Range/Units 13:53 16:27 18:23 WBC (3.8-10.6) k/uL RBC (4.30-5.90) m/uL Hgb (13.0-17.5) gm/dL Hct (39.0-53.0) % Plt Count (150-450) k/uL Neutrophils # (1.3-7.7) k/uL Carbon Dioxide (22-30) mmol/L Creatinine (0.66-1.25) mg/dL Glucose (74-99) mg/dL POC Glucose (mg/dL) 137 H 122 H 116 H (75-99) mg/dL Total Protein (6.3-8.2) g/dL Albumin (3.5-5.0) g/dL 10/17/17 10/17/17 10/17/17 Range/Units 19:49 20:54 22:02 WBC (3.8-10.6) k/uL RBC (4.30-5.90) m/uL Hgb (13.0-17.5) gm/dL Hct (39.0-53.0) % Plt Count (150-450) k/uL Neutrophils # (1.3-7.7) k/uL Carbon Dioxide (22-30) mmol/L Creatinine (0.66-1.25) mg/dL Glucose (74-99) mg/dL POC Glucose (mg/dL) 116 H 104 H 114 H (75-99) mg/dL Total Protein (6.3-8.2) g/dL Albumin (3.5-5.0) g/dL 10/17/17 10/17/17 10/18/17 Range/Units 23:03 23:56 00:55 WBC (3.8-10.6) k/uL RBC (4.30-5.90) m/uL Hgb (13.0-17.5) gm/dL Hct (39.0-53.0) % Plt Count (150-450) k/uL Neutrophils # (1.3-7.7) k/uL Carbon Dioxide (22-30) mmol/L Creatinine (0.66-1.25) mg/dL Glucose (74-99) mg/dL POC Glucose (mg/dL) 124 H 128 H 125 H (75-99) mg/dL Total Protein (6.3-8.2) g/dL Albumin (3.5-5.0) g/dL 10/18/17 10/18/17 10/18/17 Range/Units 02:06 03:00 04:00 WBC (3.8-10.6) k/uL RBC (4.30-5.90) m/uL Hgb (13.0-17.5) gm/dL Hct (39.0-53.0) % Plt Count (150-450) k/uL Neutrophils # (1.3-7.7) k/uL Carbon Dioxide 31 H (22-30) mmol/L Creatinine 0.60 L (0.66-1.25) mg/dL Glucose 114 H (74-99) mg/dL POC Glucose (mg/dL) 122 H 114 H (75-99) mg/dL Total Protein 4.9 L (6.3-8.2) g/dL Albumin 2.8 L (3.5-5.0) g/dL 10/18/17 10/18/17 10/18/17 Range/Units 04:00 04:07 04:59 WBC 10.9 H (3.8-10.6) k/uL RBC 2.51 L (4.30-5.90) m/uL Hgb 7.1 L (13.0-17.5) gm/dL Hct 21.5 L (39.0-53.0) % Plt Count 102 L (150-450) k/uL Neutrophils # 8.9 H (1.3-7.7) k/uL Carbon Dioxide (22-30) mmol/L Creatinine (0.66-1.25) mg/dL Glucose (74-99) mg/dL POC Glucose (mg/dL) 118 H 112 H (75-99) mg/dL Total Protein (6.3-8.2) g/dL Albumin (3.5-5.0) g/dL 10/18/17 Range/Units 05:58 WBC (3.8-10.6) k/uL RBC (4.30-5.90) m/uL Hgb (13.0-17.5) gm/dL Hct (39.0-53.0) % Plt Count (150-450) k/uL Neutrophils # (1.3-7.7) k/uL Carbon Dioxide (22-30) mmol/L Creatinine (0.66-1.25) mg/dL Glucose (74-99) mg/dL POC Glucose (mg/dL) 104 H (75-99) mg/dL Total Protein (6.3-8.2) g/dL Albumin (3.5-5.0) g/dL - Imaging and Cardiology Chest x-ray: report reviewed, image reviewed Assessment and Plan (1) Triple vessel coronary artery disease Current Visit: Yes Status: Chronic Code(s): I25.10 - ATHSCL HEART DISEASE OF [place] CORONARY ARTERY W/O ANG PCTRS SNOMED Code(s): 577023866 (2) Hypertension Current Visit: Yes Status: Chronic Code(s): I10 - ESSENTIAL (PRIMARY) HYPERTENSION SNOMED Code(s): 01743107 (3) Hyperlipidemia Current Visit: Yes Status: Chronic Code(s): E78.5 - HYPERLIPIDEMIA, UNSPECIFIED SNOMED Code(s): 94290675 (4) COPD (chronic obstructive pulmonary disease) Current Visit: Yes Status: Chronic Code(s): J44.9 - CHRONIC OBSTRUCTIVE PULMONARY DISEASE, UNSPECIFIED SNOMED Code(s): 33950015 (5) Asthma Current Visit: Yes Status: Chronic Code(s): J45.909 - UNSPECIFIED ASTHMA, UNCOMPLICATED SNOMED Code(s): 590243407 (6) Obstructive sleep apnea Current Visit: Yes Status: Chronic Code(s): G47.33 - OBSTRUCTIVE SLEEP APNEA (ADULT) (PEDIATRIC) SNOMED Code(s): 41046900 (7) Tobacco dependence in remission Current Visit: No Status: Resolved Code(s): F17.201 - NICOTINE DEPENDENCE, UNSPECIFIED, IN REMISSION SNOMED Code(s): 513925270 (8) Family history of coronary artery disease Current Visit: Yes Status: Chronic Code(s): Z82.49 - FAMILY HX OF ISCHEM HEART DIS AND OTH DIS OF THE CIRC SYS SNOMED Code(s): 347870300 (9) Obesity (BMI 30-39.9) Current Visit: Yes Status: Chronic Code(s): E66.9 - OBESITY, UNSPECIFIED SNOMED Code(s): 018613022 Plan: 1. Continue low-dose aspirin, statin, Plavix, heparin subcu, beta emmanuel therapy. Will increase beta emmanuel therapy as tolerated. 2. Wean O2 as tolerated. Encourage incentive spirometry use 10 times every hour. 3. Encourage continued smoking cessation. 4. Will give 40 mg IV Lasix today. 5. Discontinue Cordis, arterial line, Longo catheter. 6. Will discontinue epicardial pacemaker wires, mediastinal and pleural chest tubes. 7. Bronchodilators per pulmonology. 8. Increase activity, ambulate as tolerated. PT/OT/cardiac rehab following. 9. Diabetic management per primary care service. 10. GI/DVT prophylaxis. 11. Will monitor daily labs, x-rays. 12. Pain management with ordered medications. Toradol added for better pain control. 13. Will transfer out of ICU to E. selective care later today. 14. More recommendations to follow. Time with Patient: Greater than 30
--- NOTE | 2017-10-18 11:32 | P.PN ---
Subjective Progress Note Date: 10/18/17 Principal diagnosis: Status post CABG This is a 61-year-old white male with history of triple vessel coronary artery disease, totally occluded right coronary artery and left anterior descending artery, mild to moderate LV dysfunction with ejection fraction of 40-45%, history of severe COPD, FEV1 is in the range of 50%, history of obstructive sleep apnea, hypertension, previous history of smoking, patient underwent elective triple coronary artery bypass grafting using left internal mammary artery to the LAD, reverse saphenous vein graft to the posterior descending artery and reverse saphenous vein graft to the second obtuse marginal artery. Postoperatively, patient was on mechanical ventilation, I was notified about this patient last night, manage his ventilator, patient was extubated within a relatively short period of time after his surgery, however considering his ABG was marginal, patient was extubated to BiPAP, and today he was switched to a nasal cannula. Evaluated this morning, patient is relatively asymptomatic, his clinical course is progressing as expected, patient denies any shortness of breath. No chest pain. No nausea no vomiting no abdominal pain. Doing extremely well with incentive spirometry. And he is back on his bronchodilators. Reevaluated today on 10/18/2017, patient continues to do well, relatively asymptomatic, chest x-ray is reassuring. Patient is hemodynamically stable. Hemoglobin is a bit low at 7.1, and this is expected anemia secondary to blood loss secondary to surgery. Patient is now postoperative day #2. Patient is already ambulating in the hallway, and no specific complaints. Chest x-ray and labs were all reviewed. Objective - Vital Signs Vital signs: Vital Signs Temp 98.6 F 10/18/17 04:00 Pulse 108 H 10/18/17 09:00 Resp 23 10/18/17 09:00 BP 141/84 10/16/17 05:50 Pulse Ox 92 L 10/18/17 09:00 Intake & Output 10/17/17 10/18/17 10/18/17 18:59 06:59 18:59 Intake Total 520.467 353.141 52 Output Total 727 720 120 Balance -206.533 -366.859 -68 Weight 103.1 kg 103.2 kg Intake: IV 502 338 52 ACETAMINOPHEN IV (For NPO 200 ) 1,000 mg In Empty Bag 1 bag @ 400 mls/hr IVPB Q6HR [facility] Rx#:[id number] Lactated Ringers 1,000 ml 230 260 40 @ 20 mls/hr IV .Q24H [facility] Rx#:[id number] PRESSURE BAG 0.9% 72 78 12 Intake, IV Titration 18.467 15.141 Amount Clevidipine Butyrate 25 18.467 mg In Empty Bag 1 bag @ 1 MG/HR 2 mls/hr IV .Q24H [facility] Rx#:[id number] Insulin Regular 100 unit 15.141 In Sodium Chloride 0.9% 100 ml @ Per Protocol IV .Q0M [facility] Rx#:[id number] Output: Chest Tube Drainage 102 140 Mediastinal 100 80 Pleural Catheter Left 2 60 Drainage 20 70 Left Calf 20 70 Urine 605 510 120 Other: Voiding Method Indwelling Catheter Indwelling Catheter Indwelling Catheter # Bowel Movements 0 0 ABP, PAP, CO, CI - Last Documented Arterial Blood Pressure 126/52 Pulmonary Artery Pressure 32/16 Cardiac Output 6.8 Cardiac Index 3.3 - Exam Physical Exam: Revealed a 61-year-old white male in no distress. Head: Atraumatic normocephalic. HEENT: PERRLA, EOMI. [Neck is supple.] [No neck masses.] [No thyromegaly.] [No JVD.] Chest: [Diminished breath sounds at the bases, no crackles, no rhonchi, no wheezes.] No chest wall tenderness. Cardiac Exam: [Normal S1 and S2, no S3 gallop, 2/6 systolic murmur thought the precordium.] Abdomen: [Obese, Soft, nontender, no megaly, no rebound, no guarding, normal bowel sounds.] Extremities: [No clubbing, no edema, no cyanosis.] Neurological Exam: [No focal neurologic deficit.] Lymphatics: No lymphadenopathy. Psychiatric: Normal mood affect and mental status examination. - Labs CBC & Chem 7: 10/18/17 04:00 10/18/17 04:00 Labs: Abnormal Lab Results - Last 24 Hours (Table) 10/17/17 10/17/17 10/17/17 Range/Units 13:53 16:27 18:23 WBC (3.8-10.6) k/uL RBC (4.30-5.90) m/uL Hgb (13.0-17.5) gm/dL Hct (39.0-53.0) % Plt Count (150-450) k/uL Neutrophils # (1.3-7.7) k/uL Carbon Dioxide (22-30) mmol/L Creatinine (0.66-1.25) mg/dL Glucose (74-99) mg/dL POC Glucose (mg/dL) 137 H 122 H 116 H (75-99) mg/dL Total Protein (6.3-8.2) g/dL Albumin (3.5-5.0) g/dL 10/17/17 10/17/17 10/17/17 Range/Units 19:49 20:54 22:02 WBC (3.8-10.6) k/uL RBC (4.30-5.90) m/uL Hgb (13.0-17.5) gm/dL Hct (39.0-53.0) % Plt Count (150-450) k/uL Neutrophils # (1.3-7.7) k/uL Carbon Dioxide (22-30) mmol/L Creatinine (0.66-1.25) mg/dL Glucose (74-99) mg/dL POC Glucose (mg/dL) 116 H 104 H 114 H (75-99) mg/dL Total Protein (6.3-8.2) g/dL Albumin (3.5-5.0) g/dL 10/17/17 10/17/17 10/18/17 Range/Units 23:03 23:56 00:55 WBC (3.8-10.6) k/uL RBC (4.30-5.90) m/uL Hgb (13.0-17.5) gm/dL Hct (39.0-53.0) % Plt Count (150-450) k/uL Neutrophils # (1.3-7.7) k/uL Carbon Dioxide (22-30) mmol/L Creatinine (0.66-1.25) mg/dL Glucose (74-99) mg/dL POC Glucose (mg/dL) 124 H 128 H 125 H (75-99) mg/dL Total Protein (6.3-8.2) g/dL Albumin (3.5-5.0) g/dL 10/18/17 10/18/17 10/18/17 Range/Units 02:06 03:00 04:00 WBC (3.8-10.6) k/uL RBC (4.30-5.90) m/uL Hgb (13.0-17.5) gm/dL Hct (39.0-53.0) % Plt Count (150-450) k/uL Neutrophils # (1.3-7.7) k/uL Carbon Dioxide 31 H (22-30) mmol/L Creatinine 0.60 L (0.66-1.25) mg/dL Glucose 114 H (74-99) mg/dL POC Glucose (mg/dL) 122 H 114 H (75-99) mg/dL Total Protein 4.9 L (6.3-8.2) g/dL Albumin 2.8 L (3.5-5.0) g/dL 10/18/17 10/18/17 10/18/17 Range/Units 04:00 04:07 04:59 WBC 10.9 H (3.8-10.6) k/uL RBC 2.51 L (4.30-5.90) m/uL Hgb 7.1 L (13.0-17.5) gm/dL Hct 21.5 L (39.0-53.0) % Plt Count 102 L (150-450) k/uL Neutrophils # 8.9 H (1.3-7.7) k/uL Carbon Dioxide (22-30) mmol/L Creatinine (0.66-1.25) mg/dL Glucose (74-99) mg/dL POC Glucose (mg/dL) 118 H 112 H (75-99) mg/dL Total Protein (6.3-8.2) g/dL Albumin (3.5-5.0) g/dL 10/18/17 Range/Units 05:58 WBC (3.8-10.6) k/uL RBC (4.30-5.90) m/uL Hgb (13.0-17.5) gm/dL Hct (39.0-53.0) % Plt Count (150-450) k/uL Neutrophils # (1.3-7.7) k/uL Carbon Dioxide (22-30) mmol/L Creatinine (0.66-1.25) mg/dL Glucose (74-99) mg/dL POC Glucose (mg/dL) 104 H (75-99) mg/dL Total Protein (6.3-8.2) g/dL Albumin (3.5-5.0) g/dL Assessment and Plan Assessment: Impression: 1 status post CABG, postoperative day #2 2 ischemic cardiomyopathy and ejection fraction of 40%. 3 minimal postoperative atelectasis, expected. 4 history of COPD, Gold stage III FEV1 is in the range of 50%. 5 history of obstructive sleep apnea, on BiPAP. 6 essential hypertension 7 hyperlipidemia 8 obesity, BMI is 33.3 9 remote smoking history. Recommendation: Continue present treatment plan including bronchodilators, incentive spirometry, ambulation, we will continue to follow. Time with Patient: Less than 30
[2017-10-18 12:30] LABS: Glucose,Whole Blood 111 mg/dL (75-99)
[2017-10-18] MEDS: INSULIN ASPART 100 UNIT/ML 1 ML 10 ML VIAL SQ SCH ×3 (13:30→19:59)
[2017-10-18 17:19] LABS: Glucose,Whole Blood 113 mg/dL (75-99)
--- NOTE | 2017-10-18 17:24 | P.PN ---
Subjective Progress Note Date: 10/18/17 This is a 61-year-old gentleman with history of triple-vessel disease and status post I to coronary bypass surgery. Patient has been doing well, complains of little more soreness in the chest. His maintaining sinus rhythm. No significant arrhythmias are detected. Chest tube was removed today. Clinically patient is doing well. He may be moved out of telemetry unit within 24 hours Objective - Vital Signs Vital signs: Vital Signs Temp 99.2 F 10/18/17 15:00 Pulse 115 H 10/18/17 17:00 Resp 8 L 10/18/17 17:00 BP 99/65 10/18/17 17:00 Pulse Ox 95 10/18/17 15:00 Intake & Output 10/17/17 10/18/17 10/18/17 18:59 06:59 18:59 Intake Total 520.467 353.141 152 Output Total 727 720 390 Balance -206.533 -366.859 -238 Weight 103.1 kg 103.2 kg Intake: IV 502 338 152 ACETAMINOPHEN IV (For NPO 200 ) 1,000 mg In Empty Bag 1 bag @ 400 mls/hr IVPB Q6HR [facility] Rx#:[id number] Lactated Ringers 1,000 ml 230 260 140 @ 20 mls/hr IV .Q24H [facility] Rx#:[id number] PRESSURE BAG 0.9% 72 78 12 Intake, IV Titration 18.467 15.141 Amount Clevidipine Butyrate 25 18.467 mg In Empty Bag 1 bag @ 1 MG/HR 2 mls/hr IV .Q24H [facility] Rx#:[id number] Insulin Regular 100 unit 15.141 In Sodium Chloride 0.9% 100 ml @ Per Protocol IV .Q0M [facility] Rx#:[id number] Output: Chest Tube Drainage 102 140 Mediastinal 100 80 Pleural Catheter Left 2 60 Drainage 20 70 Left Calf 20 70 Urine 605 510 390 Other: Voiding Method Indwelling Catheter Indwelling Catheter Indwelling Catheter # Bowel Movements 0 0 ABP, PAP, CO, CI - Last Documented Arterial Blood Pressure 99/48 Pulmonary Artery Pressure 32/16 Cardiac Output 6.8 Cardiac Index 3.3 - Exam GENERAL EXAM: Patient is alert and oriented and doesn't appear to be in any acute distress HEENT: Normocephalic. Normal reaction of pupils, equal size, normal range of extraocular motion. No erythema or exudates in the throat. NECK: No masses, no nuchal rigidity. CHEST: No chest wall deformity. LUNGS: Diminished breath sounds at bases HEART: S1 and S2 normal ABDOMEN: No hepatosplenomegaly, normal bowel sounds, no guarding or rigidity. SKIN: No rashes CENTRAL NERVOUS SYSTEM: No focal deficits. EXTREMITIES: No cyanosis, clubbing or edema. - Labs CBC & Chem 7: 10/18/17 04:00 10/18/17 04:00 Labs: Abnormal Lab Results - Last 24 Hours (Table) 10/17/17 10/17/17 10/17/17 Range/Units 18:23 19:49 20:54 WBC (3.8-10.6) k/uL RBC (4.30-5.90) m/uL Hgb (13.0-17.5) gm/dL Hct (39.0-53.0) % Plt Count (150-450) k/uL Neutrophils # (1.3-7.7) k/uL Carbon Dioxide (22-30) mmol/L Creatinine (0.66-1.25) mg/dL Glucose (74-99) mg/dL POC Glucose (mg/dL) 116 H 116 H 104 H (75-99) mg/dL Total Protein (6.3-8.2) g/dL Albumin (3.5-5.0) g/dL 10/17/17 10/17/17 10/17/17 Range/Units 22:02 23:03 23:56 WBC (3.8-10.6) k/uL RBC (4.30-5.90) m/uL Hgb (13.0-17.5) gm/dL Hct (39.0-53.0) % Plt Count (150-450) k/uL Neutrophils # (1.3-7.7) k/uL Carbon Dioxide (22-30) mmol/L Creatinine (0.66-1.25) mg/dL Glucose (74-99) mg/dL POC Glucose (mg/dL) 114 H 124 H 128 H (75-99) mg/dL Total Protein (6.3-8.2) g/dL Albumin (3.5-5.0) g/dL 10/18/17 10/18/17 10/18/17 Range/Units 00:55 02:06 03:00 WBC (3.8-10.6) k/uL RBC (4.30-5.90) m/uL Hgb (13.0-17.5) gm/dL Hct (39.0-53.0) % Plt Count (150-450) k/uL Neutrophils # (1.3-7.7) k/uL Carbon Dioxide (22-30) mmol/L Creatinine (0.66-1.25) mg/dL Glucose (74-99) mg/dL POC Glucose (mg/dL) 125 H 122 H 114 H (75-99) mg/dL Total Protein (6.3-8.2) g/dL Albumin (3.5-5.0) g/dL 10/18/17 10/18/17 10/18/17 Range/Units 04:00 04:00 04:07 WBC 10.9 H (3.8-10.6) k/uL RBC 2.51 L (4.30-5.90) m/uL Hgb 7.1 L (13.0-17.5) gm/dL Hct 21.5 L (39.0-53.0) % Plt Count 102 L (150-450) k/uL Neutrophils # 8.9 H (1.3-7.7) k/uL Carbon Dioxide 31 H (22-30) mmol/L Creatinine 0.60 L (0.66-1.25) mg/dL Glucose 114 H (74-99) mg/dL POC Glucose (mg/dL) 118 H (75-99) mg/dL Total Protein 4.9 L (6.3-8.2) g/dL Albumin 2.8 L (3.5-5.0) g/dL 10/18/17 10/18/17 10/18/17 Range/Units 04:59 05:58 12:27 WBC (3.8-10.6) k/uL RBC (4.30-5.90) m/uL Hgb (13.0-17.5) gm/dL Hct (39.0-53.0) % Plt Count (150-450) k/uL Neutrophils # (1.3-7.7) k/uL Carbon Dioxide (22-30) mmol/L Creatinine (0.66-1.25) mg/dL Glucose (74-99) mg/dL POC Glucose (mg/dL) 112 H 104 H 111 H (75-99) mg/dL Total Protein (6.3-8.2) g/dL Albumin (3.5-5.0) g/dL 10/18/17 Range/Units 17:18 WBC (3.8-10.6) k/uL RBC (4.30-5.90) m/uL Hgb (13.0-17.5) gm/dL Hct (39.0-53.0) % Plt Count (150-450) k/uL Neutrophils # (1.3-7.7) k/uL Carbon Dioxide (22-30) mmol/L Creatinine (0.66-1.25) mg/dL Glucose (74-99) mg/dL POC Glucose (mg/dL) 113 H (75-99) mg/dL Total Protein (6.3-8.2) g/dL Albumin (3.5-5.0) g/dL Assessment and Plan (1) H/O heart bypass surgery Current Visit: Yes Status: Acute Code(s): Z95.1 - PRESENCE OF AORTOCORONARY BYPASS GRAFT SNOMED Code(s): 463569545 (2) History of CHF (congestive heart failure) Current Visit: Yes Status: Acute Code(s): Z86.79 - PERSONAL HISTORY OF OTHER DISEASES OF THE CIRCULATORY SYSTEM SNOMED Code(s): 023710007 (3) Hypertension Current Visit: Yes Status: Acute Code(s): I10 - ESSENTIAL (PRIMARY) HYPERTENSION SNOMED Code(s): 46785301 Plan: Patient seemed to be clinically doing well. Continue current management. Increase activity as tolerated. Possible transfer to telemetry within next 24 hours
[2017-10-18 19:59] LABS: Glucose,Whole Blood 117 mg/dL (75-99)
[2017-10-18] MEDS: SENNOSIDES-DOCUSATE SODIUM 1 EACH TAB PO SCH (20:08)
[2017-10-18] MEDS: METOPROLOL TARTRATE 50 MG TAB PO SCH (20:09)
[2017-10-19 04:48] LABS: HCT 21.1 % (39.0-53.0); MCH 28.1 pg (25.0-35.0); MCHC 32.4 g/dL (31.0-37.0); MCV 86.8 fL (80.0-100.0); Mean Platelet Volume 7.5; Platelet Count 122 k/uL (150-450); RBC 2.43 m/uL (4.30-5.90); RDW 13.7 % (11.5-15.5); WBC 8.9 k/uL (3.8-10.6)
[2017-10-19 04:54] LABS: HGB 6.8 gm/dL (13.0-17.5)
[2017-10-19 05:10] LABS: ALT 27 U/L (21-72); AST 20 U/L (17-59); Albumin 2.7 g/dL (3.5-5.0); Alkaline Phosphatase 103 U/L (38-126); Anion Gap 8 mmol/L; Blood Urea Nitrogen 18 mg/dL (9-20); Carbon Dioxide 32 mmol/L (22-30); Chloride 96 mmol/L (98-107); Glucose 101 mg/dL (74-99); Potassium 3.7 mmol/L (3.5-5.1); Sodium 136 mmol/L (137-145); Total Bilirubin 0.6 mg/dL (0.2-1.3); Total Protein 4.7 g/dL (6.3-8.2)
[2017-10-19] MEDS: KETOROLAC 30 MG/ML 1 ML VIAL IVP SCH ×3 (06:15→18:19)
[2017-10-19] MEDS: INSULIN ASPART 100 UNIT/ML 1 ML 10 ML VIAL SQ SCH ×3 (06:18→17:25)
[2017-10-19 06:19] LABS: Glucose,Whole Blood 94 mg/dL (75-99)
[2017-10-19 06:32] LABS: Basophils % (A) 0 %; Eosinophils # (A) 0.2 k/uL (0-0.7); Eosinophils % (A) 3 %; HCT 21.5 % (39.0-53.0); Lymphocytes # (A) 0.8 k/uL (1.0-4.8); Lymphocytes % (A) 10 %; MCHC 32.1 g/dL (31.0-37.0); MCV 87.2 fL (80.0-100.0); Mean Platelet Volume 7.2; Monocytes # (A) 0.4 k/uL (0-1.0); Monocytes % (A) 5 %; Neutrophils # (A) 6.6 k/uL (1.3-7.7); Neutrophils % (A) 82 %; Platelet Count 126 k/uL (150-450); RBC 2.46 m/uL (4.30-5.90); RDW 13.6 % (11.5-15.5); WBC 8.1 k/uL (3.8-10.6)
[2017-10-19 06:45] LABS: HGB 6.9 gm/dL (13.0-17.5)
--- NOTE | 2017-10-19 06:47 | PN ---
PROGRESS NOTE DATE OF SERVICE: October 18, 2017. PRESENTING COMPLAINT: Coronary bypass. INTERVAL HISTORY: Patient is status post coronary bypass. Continues to do well. Chest tubes were taken out. Telemetry shows sinus rhythm. Patient has been using his BiPAP. Did eat well. Patient did pass some flatus. Did walk well again. REVIEW OF SYSTEMS: Done for constitutional, cardiovascular, GI, pulmonary and relevant findings as above. CURRENT MEDICATIONS: Reviewed. EXAMINATION: Temperature 99.3, pulse 98, respiration 21, blood pressure 104/68, pulse ox 96% on 2 L. GENERAL APPEARANCE: Lying in bed, comfortable. Eyes pupils are equal. Conjunctivae normal. HEENT external appearance of nose and ears normal. Neck JVD unable to assess. Mass not palpable. Respiratory effort increased. Lungs decreased breath sounds. Cardiovascular first and second sounds normal. No edema. ABDOMEN: Soft nontender. Liver and spleen not palpable. Psychiatry: Alert and oriented x3. Mood and affect normal. INVESTIGATIONS: Accu-Cheks are noted. White count 10.9, hemoglobin 7.1, platelets 102, potassium 4, BUN 16, creatinine 0.6. Accu-Cheks noted. ASSESSMENT: 1. Status post triple coronary artery bypass with chest tubes now removed. 2. Ischemic cardiomyopathy ejection fraction 40%. 3. Obstructive sleep apnea uses BiPAP. 4. Gastroesophageal reflux disease. 5. Chronic obstructive pulmonary disease in an ex-smoker. 6. Essential hypertension. 7. Hyperlipidemia. 8. Obesity; BMI 33.3. 9. Acute postop blood-loss anemia as expected from surgery. 10.Dilutional thrombocytopenia. 11.Hypoalbuminemia as an acute phase reactant. PLAN: The patient is stable. Continue current medication and treatment plan. Follow. MMODL / IJN: [id number] /
[2017-10-19] MEDS: IPRATROPIUM-ALBUTEROL 3 ML NEB INHALATION SCH ×4 (07:10→19:37)
--- NOTE | 2017-10-19 07:37 | XR ---
EXAMINATION TYPE: XR chest 1V portable DATE OF EXAM: 10/19/2017 COMPARISON: 10/18/2017 HISTORY: Status post cardiac surgery. Progress exam. Shortness of breath. TECHNIQUE: Single frontal view of the chest is obtained. FINDINGS: Right internal jugular central venous catheter sheath remains in place. Cardiomegaly and p ost CABG changes of the chest are again noted. There is been interval removal of the sided thoracosto my tube with no residual pneumothorax identified. Strand-like left basilar opacity remains, likely at electasis. IMPRESSION: Interval removal of the left-sided thoracostomy tube with no residual pneumothorax. Pers istent left basilar strand-like opacity, likely atelectasis.
[2017-10-19] MEDS: HEPARIN SODIUM,PORCINE 5,000 UNIT/ML 1 ML VIAL SQ SCH ×2 (07:59→16:38)
[2017-10-19] MEDS: CLOPIDOGREL 75 MG TAB PO SCH (08:00)
[2017-10-19] MEDS: ATORVASTATIN 40 MG TAB PO SCH (08:00)
[2017-10-19] MEDS: ASPIRIN 81 MG PO SCH (08:00)
[2017-10-19] MEDS ORDERED: POTASSIUM CHLORIDE ER 20 MEQ TAB.ER PO SCH (08:00)
[2017-10-19] MEDS: MUPIROCIN 2% OINT 22 GM TUBE NASAL SCH ×2 (08:01→20:41)
[2017-10-19] MEDS: METOPROLOL TARTRATE 50 MG TAB PO SCH ×2 (08:01→20:41)
[2017-10-19] MEDS ORDERED: METOPROLOL TARTRATE 25 MG TAB PO STA (08:32)
--- NOTE | 2017-10-19 08:33 | P.PN ---
Subjective Progress Note Date: 10/19/17 Principal diagnosis: Triple-vessel coronary artery disease. Totally occluded right coronary artery and left anterior descending artery. Mild to moderate left ventricular dysfunction on ventriculogram with EF 40-45%. Severe chronic obstructive pulmonary disease with preoperative FEV1 49% of predicted. Asthma. Obstructive sleep apnea. Hypertension. Hyperlipidemia. Previous tobacco dependence. Family history of coronary artery disease. Obesity. Preop nasal swab positive for MSSA. POD #3 elective triple coronary artery bypass grafting using the left internal mammary artery to the left anterior descending artery, reverse saphenous vein graft from the aorta to the posterior descending artery, reverse saphenous vein graft from the aorta to the second obtuse marginal artery. Endoscopic harvesting of the left greater saphenous vein. Intraoperative transesophageal echocardiogram and epi-aortic scanning. Intraoperative graft flow measurements using the Button system. Acute blood loss anemia, an expected outcome of surgery secondary to hemodilution and bypass pump. The patient is currently sitting up in the recliner in no acute distress. Does complain of mild sternal pain especially with coughing, controlled on current medications. Denies shortness of breath. Patient has ambulated in the hallway. Epicardial wires and chest tubes were discontinued yesterday. Patient has no new complaints. Objective - Vital Signs Vital signs: Vital Signs Temp 98.5 F 10/19/17 04:00 Pulse 117 H 10/19/17 07:21 Resp 18 10/19/17 07:00 BP 107/61 10/19/17 07:00 Pulse Ox 95 10/19/17 07:00 Intake & Output 10/18/17 10/19/17 10/19/17 18:59 06:59 18:59 Intake Total 152 200 Output Total 390 800 Balance -238 -600 Intake: IV 152 200 Lactated Ringers 1,000 ml 140 @ 20 mls/hr IV .Q24H [facility] Rx#:[id number] NS KVO 200 PRESSURE BAG 0.9% 12 Output: Urine 390 800 Other: Voiding Method Indwelling Catheter Urinal # Bowel Movements 0 ABP, PAP, CO, CI - Last Documented Arterial Blood Pressure 99/48 Pulmonary Artery Pressure 32/16 Cardiac Output 6.8 Cardiac Index 3.3 - Constitutional General appearance: Present: cooperative, no acute distress, obese - Respiratory Details: Lungs sounds diminished bilaterally. Respirations even, nonlabored. Currently on 2 L nasal cannula with oxygen saturation 97%. Able to achieve 7828-8004 mL on his incentive spirometry. Productive cough with brown sputum. - Cardiovascular Details: S1, S2 present. Tachycardia but regular rate and rhythm, sinus tach on telemetry. Sternum stable. Palpable peripheral pulses bilaterally. Trace bilateral lower extremity edema present. No calf pain or tenderness noted. Right internal jugular Cordis present. Heart hugger in place with patient demonstrating appropriate use. Antiembolism stockings, SCDs present. - Gastrointestinal Gastrointestinal Comment(s): Abdomen soft, nontender, nondistended. Active bowel sounds present 4 quadrants. Tolerating diet. Positive flatus, no bowel movement yet. - Genitourinary Genitourinary Comment(s): [place] discontinued yesterday. Patient has voided clear, yellow urine. - Integumentary Integumentary Comment(s): Skin is warm and dry with evidence of good perfusion. Anterior chest incision well approximated and covered with dry intact dressing. Left lower extremity EVH site well approximated, CHASIDY drain present with minimal drainage. - Neurologic Neurologic: Present: CNII-XII intact - Musculoskeletal Musculoskeletal: Present: gait normal, strength equal bilaterally - Psychiatric Psychiatric: Present: A&O x's 3, appropriate affect, intact judgment & insight - Allied health notes Allied health notes reviewed: nursing - Labs CBC & Chem 7: 10/19/17 06:17 10/19/17 04:20 Labs: Abnormal Lab Results - Last 24 Hours (Table) 10/18/17 10/18/17 10/18/17 Range/Units 12:27 17:18 19:57 RBC (4.30-5.90) m/uL Hgb (13.0-17.5) gm/dL Hct (39.0-53.0) % Plt Count (150-450) k/uL Lymphocytes # (1.0-4.8) k/uL Sodium (137-145) mmol/L Chloride (98-107) mmol/L Carbon Dioxide (22-30) mmol/L Glucose (74-99) mg/dL POC Glucose (mg/dL) 111 H 113 H 117 H (75-99) mg/dL Calcium (8.4-10.2) mg/dL Total Protein (6.3-8.2) g/dL Albumin (3.5-5.0) g/dL 05/10/19/17 10/19/17 Range/Units 04:20 04:20 06:17 RBC 2.43 L 2.46 L (4.30-5.90) m/uL Hgb 6.8 L* 6.9 L* (13.0-17.5) gm/dL Hct 21.1 L 21.5 L (39.0-53.0) % Plt Count 122 L 126 L (150-450) k/uL Lymphocytes # 0.8 L (1.0-4.8) k/uL Sodium 136 L (137-145) mmol/L Chloride 96 L (98-107) mmol/L Carbon Dioxide 32 H (22-30) mmol/L Glucose 101 H (74-99) mg/dL POC Glucose (mg/dL) (75-99) mg/dL Calcium 8.0 L (8.4-10.2) mg/dL Total Protein 4.7 L (6.3-8.2) g/dL Albumin 2.7 L (3.5-5.0) g/dL - Imaging and Cardiology Chest x-ray: report reviewed, image reviewed Assessment and Plan (1) Triple vessel coronary artery disease Current Visit: Yes Status: Chronic Code(s): I25.10 - ATHSCL HEART DISEASE OF [place] CORONARY ARTERY W/O ANG PCTRS SNOMED Code(s): 510784754 (2) Hypertension Current Visit: Yes Status: Chronic Code(s): I10 - ESSENTIAL (PRIMARY) HYPERTENSION SNOMED Code(s): 74160206 (3) Hyperlipidemia Current Visit: Yes Status: Chronic Code(s): E78.5 - HYPERLIPIDEMIA, UNSPECIFIED SNOMED Code(s): 80652438 (4) COPD (chronic obstructive pulmonary disease) Current Visit: Yes Status: Chronic Code(s): J44.9 - CHRONIC OBSTRUCTIVE PULMONARY DISEASE, UNSPECIFIED SNOMED Code(s): 48496654 (5) Asthma Current Visit: Yes Status: Chronic Code(s): J45.909 - UNSPECIFIED ASTHMA, UNCOMPLICATED SNOMED Code(s): 784821060 (6) Obstructive sleep apnea Current Visit: Yes Status: Chronic Code(s): G47.33 - OBSTRUCTIVE SLEEP APNEA (ADULT) (PEDIATRIC) SNOMED Code(s): 30442725 (7) Tobacco dependence in remission Current Visit: No Status: Resolved Code(s): F17.201 - NICOTINE DEPENDENCE, UNSPECIFIED, IN REMISSION SNOMED Code(s): 179681234 (8) Family history of coronary artery disease Current Visit: Yes Status: Chronic Code(s): Z82.49 - FAMILY HX OF ISCHEM HEART DIS AND OTH DIS OF THE CIRC SYS SNOMED Code(s): 965959769 (9) Obesity (BMI 30-39.9) Current Visit: Yes Status: Chronic Code(s): E66.9 - OBESITY, UNSPECIFIED SNOMED Code(s): 316273576 Plan: 1. Continue low-dose aspirin, statin, Plavix, heparin subcu, beta emmanuel therapy. Will increase beta emmanuel therapy as tolerated. 2. Wean O2 as tolerated. Encourage incentive spirometry use 10 times every hour. 3. Encourage continued smoking cessation. 4. Will give 40 mg IV Lasix today. 5. Need to obtain IV access. Unable to place midline catheter yesterday. Will try again today. 6. Bronchodilators per pulmonology. 7. Increase activity, ambulate as tolerated. PT/OT/cardiac rehab following. 8. Diabetic management per primary care service. 9. GI/DVT prophylaxis. 10. Will monitor daily labs, x-rays. No need for transfusion. Patient is not symptomatic. 11. Pain management with ordered medications. 12. May transfer out of ICU to 6 E. selective care once IV access established. 13. More recommendations to follow. Discharge planning in progress. Anticipate discharge to home with home care. Time with Patient: Greater than 30
[2017-10-19] MEDS ORDERED: FUROSEMIDE 10 MG/ML 4 ML VIAL IV STA (08:34)
[2017-10-19] MEDS ORDERED: LISINOPRIL 2.5 MG TAB PO SCH (09:00)
[2017-10-19] MEDS: PANTOPRAZOLE 40 MG TABLET PO SCH (09:16)
--- NOTE | 2017-10-19 12:17 | P.PN ---
Subjective Progress Note Date: 10/19/17 Principal diagnosis: Status post CABG This is a 61-year-old white male with history of triple vessel coronary artery disease, totally occluded right coronary artery and left anterior descending artery, mild to moderate LV dysfunction with ejection fraction of 40-45%, history of severe COPD, FEV1 is in the range of 50%, history of obstructive sleep apnea, hypertension, previous history of smoking, patient underwent elective triple coronary artery bypass grafting using left internal mammary artery to the LAD, reverse saphenous vein graft to the posterior descending artery and reverse saphenous vein graft to the second obtuse marginal artery. Postoperatively, patient was on mechanical ventilation, I was notified about this patient last night, manage his ventilator, patient was extubated within a relatively short period of time after his surgery, however considering his ABG was marginal, patient was extubated to BiPAP, and today he was switched to a nasal cannula. Evaluated this morning, patient is relatively asymptomatic, his clinical course is progressing as expected, patient denies any shortness of breath. No chest pain. No nausea no vomiting no abdominal pain. Doing extremely well with incentive spirometry. And he is back on his bronchodilators. Reevaluated today on 10/18/2017, patient continues to do well, relatively asymptomatic, chest x-ray is reassuring. Patient is hemodynamically stable. Hemoglobin is a bit low at 7.1, and this is expected anemia secondary to blood loss secondary to surgery. Patient is now postoperative day #2. Patient is already ambulating in the hallway, and no specific complaints. Chest x-ray and labs were all reviewed. Reevaluated today on 10/19/2017, patient is postoperative day #3, doing great. Relatively asymptomatic. Hemoglobin is 6.9, no plans for blood transfusion at this point as per thoracic surgery. His basic metabolic profile is normal, and chest x-ray mostly significant for postoperative changes otherwise unremarkable. Objective - Vital Signs Vital signs: Vital Signs Temp 98.5 F 10/19/17 08:00 Pulse 115 H 10/19/17 11:23 Resp 20 10/19/17 11:00 BP 104/70 10/19/17 11:00 Pulse Ox 98 10/19/17 11:00 Intake & Output 10/18/17 10/19/17 10/19/17 18:59 06:59 18:59 Intake Total 152 200 60 Output Total 390 800 20 Balance -238 -600 40 Weight 102.2 kg Intake: IV 152 200 60 Lactated Ringers 1,000 ml 140 @ 20 mls/hr IV .Q24H [facility] Rx#:[id number] NS KVO 200 60 PRESSURE BAG 0.9% 12 Output: Drainage 20 Left Calf 20 Urine 390 800 Other: Voiding Method Indwelling Catheter Urinal Urinal # Bowel Movements 0 2 ABP, PAP, CO, CI - Last Documented Arterial Blood Pressure 99/48 Pulmonary Artery Pressure 32/16 Cardiac Output 6.8 Cardiac Index 3.3 - Exam Physical Exam: Revealed a 61-year-old white male in no distress. Head: Atraumatic normocephalic. HEENT: PERRLA, EOMI. [Neck is supple.] [No neck masses.] [No thyromegaly.] [No JVD.] Chest: [Diminished breath sounds at the bases, no crackles, no rhonchi, no wheezes.] No chest wall tenderness. Cardiac Exam: [Normal S1 and S2, no S3 gallop, 2/6 systolic murmur thought the precordium.] Abdomen: [Obese, Soft, nontender, no megaly, no rebound, no guarding, normal bowel sounds.] Extremities: [No clubbing, no edema, no cyanosis.] Neurological Exam: [No focal neurologic deficit.] Lymphatics: No lymphadenopathy. Psychiatric: Normal mood affect and mental status examination. - Labs CBC & Chem 7: 10/19/17 06:17 10/19/17 04:20 Labs: Abnormal Lab Results - Last 24 Hours (Table) 10/18/17 10/18/17 10/18/17 Range/Units 12:27 17:18 19:57 RBC (4.30-5.90) m/uL Hgb (13.0-17.5) gm/dL Hct (39.0-53.0) % Plt Count (150-450) k/uL Lymphocytes # (1.0-4.8) k/uL Sodium (137-145) mmol/L Chloride (98-107) mmol/L Carbon Dioxide (22-30) mmol/L Glucose (74-99) mg/dL POC Glucose (mg/dL) 111 H 113 H 117 H (75-99) mg/dL Calcium (8.4-10.2) mg/dL Total Protein (6.3-8.2) g/dL Albumin (3.5-5.0) g/dL 10/19/17 10/19/17 10/19/17 Range/Units 04:20 04:20 06:17 RBC 2.43 L 2.46 L (4.30-5.90) m/uL Hgb 6.8 L* 6.9 L* (13.0-17.5) gm/dL Hct 21.1 L 21.5 L (39.0-53.0) % Plt Count 122 L 126 L (150-450) k/uL Lymphocytes # 0.8 L (1.0-4.8) k/uL Sodium 136 L (137-145) mmol/L Chloride 96 L (98-107) mmol/L Carbon Dioxide 32 H (22-30) mmol/L Glucose 101 H (74-99) mg/dL POC Glucose (mg/dL) (75-99) mg/dL Calcium 8.0 L (8.4-10.2) mg/dL Total Protein 4.7 L (6.3-8.2) g/dL Albumin 2.7 L (3.5-5.0) g/dL Assessment and Plan Assessment: Impression: 1 status post CABG, postoperative day #3 2 ischemic cardiomyopathy and ejection fraction of 40%. 3 minimal postoperative atelectasis, expected. 4 history of COPD, Gold stage III FEV1 is in the range of 50%. 5 history of obstructive sleep apnea, on BiPAP. 6 essential hypertension 7 hyperlipidemia 8 obesity, BMI is 33.3 9 remote smoking history. Recommendation: Continue present treatment plan including bronchodilators, incentive spirometry, ambulation, transfer to a monitor bed on selective today , we'll continue to follow. Time with Patient: Less than 30
[2017-10-19 12:21] LABS: Glucose,Whole Blood 94 mg/dL (75-99)
[2017-10-19 17:11] LABS: Glucose,Whole Blood 99 mg/dL (75-99)
--- NOTE | 2017-10-19 18:17 | P.PN ---
Subjective Progress Note Date: 10/19/17 This 61-year-old gentleman is status post I to coronary bypass surgery. Progressing very well. His chest pain has improved. Patient is eating better. His maintaining sinus rhythm. No arrhythmias detected. Patient is being transferred to telemetry unit. Increase activity as tolerated. Pulmonary toilet Objective - Vital Signs Vital signs: Vital Signs Temp 98.1 F 10/19/17 16:00 Pulse 120 H 10/19/17 18:00 Resp 20 10/19/17 18:00 BP 106/71 10/19/17 18:00 Pulse Ox 96 10/19/17 18:00 Intake & Output 10/18/17 10/19/17 10/19/17 18:59 06:59 18:59 Intake Total 152 200 60 Output Total 390 800 23 Balance -238 -600 37 Weight 102.2 kg Intake: IV 152 200 60 Lactated Ringers 1,000 ml 140 @ 20 mls/hr IV .Q24H [facility] Rx#:[id number] NS KVO 200 60 PRESSURE BAG 0.9% 12 Output: Drainage 20 Left Calf 20 Urine 390 800 Urine/Stool Mix 3 Other: Voiding Method Indwelling Catheter Urinal Bedside Commode # Bowel Movements 0 2 ABP, PAP, CO, CI - Last Documented Arterial Blood Pressure 99/48 Pulmonary Artery Pressure 32/16 Cardiac Output 6.8 Cardiac Index 3.3 - Exam GENERAL EXAM: Patient is alert and oriented and doesn't appear to be in any acute distress HEENT: Normocephalic. Normal reaction of pupils, equal size, normal range of extraocular motion. No erythema or exudates in the throat. NECK: No masses, no nuchal rigidity. CHEST: No chest wall deformity. LUNGS: Diminished breath sounds at bases HEART: S1 and S2 normal ABDOMEN: No hepatosplenomegaly, normal bowel sounds, no guarding or rigidity. SKIN: No rashes CENTRAL NERVOUS SYSTEM: No focal deficits. EXTREMITIES: No cyanosis, clubbing or edema. - Labs CBC & Chem 7: 10/19/17 06:17 10/19/17 04:20 Labs: Abnormal Lab Results - Last 24 Hours (Table) 10/18/17 10/19/17 10/19/17 Range/Units 19:57 04:20 04:20 RBC 2.43 L (4.30-5.90) m/uL Hgb 6.8 L* (13.0-17.5) gm/dL Hct 21.1 L (39.0-53.0) % Plt Count 122 L (150-450) k/uL Lymphocytes # (1.0-4.8) k/uL Sodium 136 L (137-145) mmol/L Chloride 96 L (98-107) mmol/L Carbon Dioxide 32 H (22-30) mmol/L Glucose 101 H (74-99) mg/dL POC Glucose (mg/dL) 117 H (75-99) mg/dL Calcium 8.0 L (8.4-10.2) mg/dL Total Protein 4.7 L (6.3-8.2) g/dL Albumin 2.7 L (3.5-5.0) g/dL 18 Range/Units 06:17 RBC 2.46 L (4.30-5.90) m/uL Hgb 6.9 L* (13.0-17.5) gm/dL Hct 21.5 L (39.0-53.0) % Plt Count 126 L (150-450) k/uL Lymphocytes # 0.8 L (1.0-4.8) k/uL Sodium (137-145) mmol/L Chloride (98-107) mmol/L Carbon Dioxide (22-30) mmol/L Glucose (74-99) mg/dL POC Glucose (mg/dL) (75-99) mg/dL Calcium (8.4-10.2) mg/dL Total Protein (6.3-8.2) g/dL Albumin (3.5-5.0) g/dL Assessment and Plan (1) H/O heart bypass surgery Current Visit: Yes Status: Acute Code(s): Z95.1 - PRESENCE OF AORTOCORONARY BYPASS GRAFT SNOMED Code(s): 206310633 (2) History of CHF (congestive heart failure) Current Visit: Yes Status: Acute Code(s): Z86.79 - PERSONAL HISTORY OF OTHER DISEASES OF THE CIRCULATORY SYSTEM SNOMED Code(s): 383800949 (3) Hypertension Current Visit: Yes Status: Acute Code(s): I10 - ESSENTIAL (PRIMARY) HYPERTENSION SNOMED Code(s): 86364474 Plan: Patient is currently doing well. Maintaining sinus rhythm. Tolerating activity. Patient is being transferred to telemetry unit
[2017-10-19] MEDS: SENNOSIDES-DOCUSATE SODIUM 1 EACH TAB PO SCH (20:41)
[2017-10-19 20:56] LABS: Glucose,Whole Blood 111 mg/dL (75-99)
--- NOTE | 2017-10-19 23:48 | PN ---
PROGRESS NOTE DATE OF SERVICE: October 19, 2017. PRESENT COMPLAINT: Coronary bypass. INTERVAL HISTORY: Patient is status post coronary bypass continues to do well. Tolerating a diet. Eating well. Has been up and about. REVIEW OF SYSTEMS: Done for constitutional, cardiovascular, GI, pulmonary, relevant findings as above. CURRENT MEDICATIONS: Reviewed. EXAMINATION: Temperature 98.1, pulse 113, respiration 13, blood pressure 93/59, pulse ox 94% on 2 L. GENERAL APPEARANCE: Sitting up on a chair, comfortable. Eyes pupils are equal. Conjunctivae normal. HEENT external appearance of nose and ears normal. Oral cavity normal. Neck JVD unable to assess. Mass not palpable. Respiratory effort increased. Lungs decreased breath sounds. Cardiovascular 1st and 2nd sounds normal. No edema. ABDOMEN: Soft, nontender. Liver and spleen not palpable. Psychiatry: Alert and oriented x3. Mood and affect normal. INVESTIGATIONS: White count 8.1, hemoglobin is 6.9, platelets 126. ASSESSMENT: 1. Status post triple coronary artery bypass. Chest tubes removed. 2. Ischemic cardiomyopathy ejection fraction 40%. 3. Obstructive sleep apnea uses BiPAP. 4. Gastroesophageal reflux disease. 5. Chronic obstructive pulmonary disease in an ex-smoker. 6. Hypotension from acute blood loss. 7. Hyperlipidemia. 8. Obesity; BMI 33.3. 9. Acute postoperative blood-loss anemia as expected from surgery. 10.Dilutional thrombocytopenia. 11.Hypoalbuminemia as an acute phase reactant. PLAN: by cardiothoracic surgery, patient may be given a unit of blood as he is also running hypotensive and tachycardiac and should benefit from a unit of blood. Care was discussed with the patient. Follow. MMODL / IJN: [id number] /
[2017-10-20] MEDS: HEPARIN SODIUM,PORCINE 5,000 UNIT/ML 1 ML VIAL SQ SCH ×4 (00:11→23:39)
[2017-10-20] MEDS: KETOROLAC 30 MG/ML 1 ML VIAL IVP SCH ×5 (00:11→23:40)
[2017-10-20 05:04] LABS: HCT 20.2 % (39.0-53.0); MCHC 33.4 g/dL (31.0-37.0); Mean Platelet Volume 7.3; Platelet Count 153 k/uL (150-450); RBC 2.32 m/uL (4.30-5.90); WBC 5.8 k/uL (3.8-10.6)
[2017-10-20 05:14] LABS: ALT 34 U/L (21-72); AST 20 U/L (17-59); Albumin 2.7 g/dL (3.5-5.0); Alkaline Phosphatase 152 U/L (38-126); Anion Gap 10 mmol/L; Blood Urea Nitrogen 17 mg/dL (9-20); Carbon Dioxide 32 mmol/L (22-30); Chloride 96 mmol/L (98-107); Glucose 98 mg/dL (74-99); Potassium 3.5 mmol/L (3.5-5.1); Sodium 138 mmol/L (137-145); Total Bilirubin 0.6 mg/dL (0.2-1.3); Total Protein 4.9 g/dL (6.3-8.2)
[2017-10-20 05:25] LABS: HGB 6.7 gm/dL (13.0-17.5)
[2017-10-20 07:33] LABS: Glucose,Whole Blood 91 mg/dL (75-99)
[2017-10-20] MEDS: IPRATROPIUM-ALBUTEROL 3 ML NEB INHALATION SCH ×4 (07:45→20:43)
[2017-10-20] MEDS: POTASSIUM CHLORIDE ER 20 MEQ TAB.ER PO SCH ×2 (08:02→08:53)
[2017-10-20] MEDS: PANTOPRAZOLE 40 MG TABLET PO SCH (08:40)
[2017-10-20] MEDS: CLOPIDOGREL 75 MG TAB PO SCH (08:40)
[2017-10-20] MEDS: ASPIRIN 81 MG PO SCH (08:41)
[2017-10-20] MEDS: ATORVASTATIN 40 MG TAB PO SCH (08:41)
[2017-10-20] MEDS: FERROUS SULFATE 325 MG TAB PO SCH ×2 (08:53→20:57)
[2017-10-20] MEDS: ASCORBIC ACID 500 MG TAB PO SCH ×2 (08:53→20:57)
[2017-10-20] MEDS ORDERED: FUROSEMIDE 10 MG/ML 4 ML VIAL IV STA (09:13)
--- NOTE | 2017-10-20 09:14 | P.PN ---
Subjective Progress Note Date: 10/20/17 Principal diagnosis: Triple-vessel coronary artery disease. Totally occluded right coronary artery and left anterior descending artery. Mild to moderate left ventricular dysfunction on ventriculogram with EF 40-45%. Severe chronic obstructive pulmonary disease with preoperative FEV1 49% of predicted. Asthma. Obstructive sleep apnea. Hypertension. Hyperlipidemia. Previous tobacco dependence. Family history of coronary artery disease. Obesity. Preop nasal swab positive for MSSA. POD #4 elective triple coronary artery bypass grafting using the left internal mammary artery to the left anterior descending artery, reverse saphenous vein graft from the aorta to the posterior descending artery, reverse saphenous vein graft from the aorta to the second obtuse marginal artery. Endoscopic harvesting of the left greater saphenous vein. Intraoperative transesophageal echocardiogram and epi-aortic scanning. Intraoperative graft flow measurements using the [employer] system. Acute blood loss anemia, an expected outcome of surgery secondary to hemodilution and bypass pump. The patient is currently sitting up in the recliner in no acute distress. Does complain of mild sternal pain especially with coughing, controlled on current medications. Denies shortness of breath. Patient has ambulated in the hallway. Patient has no new complaints. Objective - Vital Signs Vital signs: Vital Signs Temp 99 F 10/20/17 05:16 Pulse 100 10/20/17 05:16 Resp 24 10/20/17 05:16 BP 102/75 10/20/17 06:00 Pulse Ox 100 10/20/17 05:16 Intake & Output 10/19/17 10/20/17 10/20/17 18:59 06:59 18:59 Intake Total 810 Output Total 23 Balance 787 Weight 101 kg Intake: IV 60 NS KVO 60 Oral 750 Output: Drainage 20 Left Calf 20 Urine/Stool Mix 3 Other: Voiding Method Bedside Commode Urinal # Voids 1 # Bowel Movements 2 1 ABP, PAP, CO, CI - Last Documented Arterial Blood Pressure 99/48 Pulmonary Artery Pressure 32/16 Cardiac Output 6.8 Cardiac Index 3.3 - Constitutional General appearance: Present: cooperative, no acute distress, obese - Respiratory Details: Lungs sounds diminished bilaterally with expiratory wheezes present. Respirations even, nonlabored. Currently on 3 L nasal cannula with oxygen saturation 98%. Able to achieve 7536-4361 mL on his incentive spirometry. Strong cough. - Cardiovascular Details: S1, S2 present. Tachycardia but regular rate and rhythm, sinus tach on telemetry. Sternum stable. Palpable peripheral pulses bilaterally. Trace left lower extremity edema present. No calf pain or tenderness noted. Heart hugger in place with patient demonstrating appropriate use. Antiembolism stockings, SCDs present. - Gastrointestinal Gastrointestinal Comment(s): Abdomen soft, nontender, nondistended. Active bowel sounds present 4 quadrants. Tolerating diet. Positive bowel movement 2 yesterday. - Genitourinary Genitourinary Comment(s): Patient continues to void clear, yellow urine. - Integumentary Integumentary Comment(s): Skin is warm and dry with evidence of good perfusion. Anterior chest incision well approximated and covered with dry intact dressing. Left lower extremity EVH site well approximated, CHASIDY drain present with minimal drainage. - Neurologic Neurologic: Present: CNII-XII intact - Musculoskeletal Musculoskeletal: Present: gait normal, strength equal bilaterally - Psychiatric Psychiatric: Present: A&O x's 3, appropriate affect, intact judgment & insight - Allied health notes Allied health notes reviewed: nursing - Labs CBC & Chem 7: 10/20/17 04:39 10/20/17 04:39 Labs: Abnormal Lab Results - Last 24 Hours (Table) 10/19/17 10/20/17 10/20/17 Range/Units 20:54 04:39 04:39 RBC 2.32 L (4.30-5.90) m/uL Hgb 6.7 L* (13.0-17.5) gm/dL Hct 20.2 L (39.0-53.0) % Chloride 96 L (98-107) mmol/L Carbon Dioxide 32 H (22-30) mmol/L POC Glucose (mg/dL) 111 H (75-99) mg/dL Calcium 8.0 L (8.4-10.2) mg/dL Alkaline Phosphatase 152 H (38-126) U/L Total Protein 4.9 L (6.3-8.2) g/dL Albumin 2.7 L (3.5-5.0) g/dL - Imaging and Cardiology Chest x-ray: image reviewed Assessment and Plan (1) Triple vessel coronary artery disease Current Visit: Yes Status: Chronic Code(s): I25.10 - ATHSCL HEART DISEASE OF [place] CORONARY ARTERY W/O ANG PCTRS SNOMED Code(s): 184578900 (2) Hypertension Current Visit: Yes Status: Chronic Code(s): I10 - ESSENTIAL (PRIMARY) HYPERTENSION SNOMED Code(s): 62040787 (3) Hyperlipidemia Current Visit: Yes Status: Chronic Code(s): E78.5 - HYPERLIPIDEMIA, UNSPECIFIED SNOMED Code(s): 71844084 (4) COPD (chronic obstructive pulmonary disease) Current Visit: Yes Status: Chronic Code(s): J44.9 - CHRONIC OBSTRUCTIVE PULMONARY DISEASE, UNSPECIFIED SNOMED Code(s): 45546826 (5) Asthma Current Visit: Yes Status: Chronic Code(s): J45.909 - UNSPECIFIED ASTHMA, UNCOMPLICATED SNOMED Code(s): 345809339 (6) Obstructive sleep apnea Current Visit: Yes Status: Chronic Code(s): G47.33 - OBSTRUCTIVE SLEEP APNEA (ADULT) (PEDIATRIC) SNOMED Code(s): 05019675 (7) Tobacco dependence in remission Current Visit: No Status: Resolved Code(s): F17.201 - NICOTINE DEPENDENCE, UNSPECIFIED, IN REMISSION SNOMED Code(s): 750355664 (8) Family history of coronary artery disease Current Visit: Yes Status: Chronic Code(s): Z82.49 - FAMILY HX OF ISCHEM HEART DIS AND OTH DIS OF THE CIRC SYS SNOMED Code(s): 008613618 (9) Obesity (BMI 30-39.9) Current Visit: Yes Status: Chronic Code(s): E66.9 - OBESITY, UNSPECIFIED SNOMED Code(s): 996288703 Plan: 1. Continue low-dose aspirin, statin, Plavix, heparin subcu, beta emmanuel therapy. Lopressor decreased to 50 mg BID. 2. Wean O2 as tolerated. Encourage incentive spirometry use 10 times every hour. 3. Encourage continued smoking cessation. 4. Will give 40 mg IV Lasix today. 5. Bronchodilators per pulmonology. 6. Increase activity, ambulate as tolerated. PT/OT/cardiac rehab following. 7. Diabetic management per primary care service. 8. GI/DVT prophylaxis. 9. Will monitor daily labs, x-rays. Will transfuse 1 unit PRBCs. 10. Pain management with ordered medications. 11. CHASIDY drain discontinued. 12. May transfer out of ICU to E. selective care when bed available. 13. More recommendations to follow. Discharge planning in progress. Anticipate discharge to home with home care. Time with Patient: Greater than 30
--- NOTE | 2017-10-20 09:23 | XR ---
EXAMINATION TYPE: XR chest 2V DATE OF EXAM: 10/20/2017 COMPARISON: Prior chest x-ray 10/19/2017 HISTORY: Status post cardiac surgery TECHNIQUE: Frontal and lateral views of the chest are obtained. FINDINGS: Patient is post median sternotomy. Right jugular central venous sheath has been removed. T here are overlying cardiac leads. No evident pneumothorax. Heart size is stable. Bibasilar density pe rsists. Pulmonary vascularity and janice not significantly changed. IMPRESSION: Bibasilar atelectasis versus edema or pneumonia and associated effusions. Postop changes , stable cardiomegaly.
[2017-10-20] MEDS: METOPROLOL TARTRATE 50 MG TAB PO SCH ×3 (10:30→20:34)
--- NOTE | 2017-10-20 11:24 | P.PN ---
Subjective Progress Note Date: 10/20/17 Principal diagnosis: Status post CABG This is a 61-year-old white male with history of triple vessel coronary artery disease, totally occluded right coronary artery and left anterior descending artery, mild to moderate LV dysfunction with ejection fraction of 40-45%, history of severe COPD, FEV1 is in the range of 50%, history of obstructive sleep apnea, hypertension, previous history of smoking, patient underwent elective triple coronary artery bypass grafting using left internal mammary artery to the LAD, reverse saphenous vein graft to the posterior descending artery and reverse saphenous vein graft to the second obtuse marginal artery. Postoperatively, patient was on mechanical ventilation, I was notified about this patient last night, manage his ventilator, patient was extubated within a relatively short period of time after his surgery, however considering his ABG was marginal, patient was extubated to BiPAP, and today he was switched to a nasal cannula. Evaluated this morning, patient is relatively asymptomatic, his clinical course is progressing as expected, patient denies any shortness of breath. No chest pain. No nausea no vomiting no abdominal pain. Doing extremely well with incentive spirometry. And he is back on his bronchodilators. Reevaluated today on 10/18/2017, patient continues to do well, relatively asymptomatic, chest x-ray is reassuring. Patient is hemodynamically stable. Hemoglobin is a bit low at 7.1, and this is expected anemia secondary to blood loss secondary to surgery. Patient is now postoperative day #2. Patient is already ambulating in the hallway, and no specific complaints. Chest x-ray and labs were all reviewed. Reevaluated today on 10/19/2017, patient is postoperative day #3, doing great. Relatively asymptomatic. Hemoglobin is 6.9, no plans for blood transfusion at this point as per thoracic surgery. His basic metabolic profile is normal, and chest x-ray mostly significant for postoperative changes otherwise unremarkable. Reevaluated today on 10/20/2017, patient is postoperative day #4. Currently sitting in her recliner chair, in no distress, relatively asymptomatic, minimal pain, no shortness of breath no cough no wheezing. Doing well with incentive spirometry. Objective - Vital Signs Vital signs: Vital Signs Temp 98.2 F 10/20/17 10:16 Pulse 116 H 10/20/17 11:00 Resp 19 10/20/17 11:00 BP 91/66 10/20/17 11:00 Pulse Ox 97 10/20/17 11:00 Intake & Output 10/19/17 10/20/17 10/20/17 18:59 06:59 18:59 Intake Total 810 0 Output Total 23 600 Balance 787 -600 Weight 101 kg Intake: IV 60 0 NS KVO 60 0 Oral 750 Blood Product 0 Rc As-1 Unit 0 [id number] Output: Drainage 20 Left Calf 20 Urine 600 Urine/Stool Mix 3 Other: Voiding Method Bedside Commode Urinal # Voids 1 # Bowel Movements 2 1 ABP, PAP, CO, CI - Last Documented Arterial Blood Pressure 99/48 Pulmonary Artery Pressure 32/16 Cardiac Output 6.8 Cardiac Index 3.3 - Exam Physical Exam: Revealed a 61-year-old white male in no distress. Head: Atraumatic normocephalic. HEENT: PERRLA, EOMI. [Neck is supple.] [No neck masses.] [No thyromegaly.] [No JVD.] Chest: [Diminished breath sounds at the bases, no crackles, no rhonchi, no wheezes.] No chest wall tenderness. Cardiac Exam: [Normal S1 and S2, no S3 gallop, 2/6 systolic murmur thought the precordium.] Abdomen: [Obese, Soft, nontender, no megaly, no rebound, no guarding, normal bowel sounds.] Extremities: [No clubbing, no edema, no cyanosis.] Neurological Exam: [No focal neurologic deficit.] Lymphatics: No lymphadenopathy. Psychiatric: Normal mood affect and mental status examination. - Labs CBC & Chem 7: 10/20/17 04:39 10/20/17 04:39 Labs: Abnormal Lab Results - Last 24 Hours (Table) 10/19/17 10/19/17 10/20/17 Range/Units 06:17 20:54 04:39 RBC 2.32 L (4.30-5.90) m/uL Hgb 6.7 L* (13.0-17.5) gm/dL Hct 20.2 L (39.0-53.0) % Chloride (98-107) mmol/L Carbon Dioxide (22-30) mmol/L POC Glucose (mg/dL) 111 H (75-99) mg/dL Calcium (8.4-10.2) mg/dL Alkaline Phosphatase (38-126) U/L Total Protein (6.3-8.2) g/dL Albumin (3.5-5.0) g/dL Crossmatch See Detail 10/20/17 Range/Units 04:39 RBC (4.30-5.90) m/uL Hgb (13.0-17.5) gm/dL Hct (39.0-53.0) % Chloride 96 L (98-107) mmol/L Carbon Dioxide 32 H (22-30) mmol/L POC Glucose (mg/dL) (75-99) mg/dL Calcium 8.0 L (8.4-10.2) mg/dL Alkaline Phosphatase 152 H (38-126) U/L Total Protein 4.9 L (6.3-8.2) g/dL Albumin 2.7 L (3.5-5.0) g/dL Crossmatch Assessment and Plan Assessment: Impression: 1 status post CABG, for triple vessel coronary artery disease. postoperative day #4 2 ischemic cardiomyopathy and ejection fraction of 40%. 3 minimal postoperative atelectasis, expected. 4 history of COPD, Gold stage III FEV1 is in the range of 50%. 5 history of obstructive sleep apnea, on BiPAP. 6 essential hypertension 7 hyperlipidemia 8 obesity, BMI is 33.3 9 remote smoking history. Recommendation: Continue present treatment plan including bronchodilators, incentive spirometry, ambulation, patient is a selective overflow today. Time with Patient: Less than 30
[2017-10-20] MEDS: LISINOPRIL 2.5 MG TAB PO SCH (12:20)
[2017-10-20 12:34] LABS: Glucose,Whole Blood 91 mg/dL (75-99)
[2017-10-20 15:42] LABS: Basophils % (A) 0 %; Eosinophils # (A) 0.2 k/uL (0-0.7); Eosinophils % (A) 3 %; HCT 25.2 % (39.0-53.0); HGB 8.1 gm/dL (13.0-17.5); Lymphocytes # (A) 0.8 k/uL (1.0-4.8); Lymphocytes % (A) 12 %; MCH 27.3 pg (25.0-35.0); MCHC 32.2 g/dL (31.0-37.0); MCV 84.7 fL (80.0-100.0); Mean Platelet Volume 7.4; Monocytes # (A) 0.3 k/uL (0-1.0); Monocytes % (A) 5 %; Neutrophils # (A) 4.9 k/uL (1.3-7.7); Neutrophils % (A) 78 %; Platelet Count 208 k/uL (150-450); RBC 2.98 m/uL (4.30-5.90); RDW 15.7 % (11.5-15.5); WBC 6.2 k/uL (3.8-10.6)
--- NOTE | 2017-10-20 15:57 | P.PN ---
Subjective Progress Note Date: 10/20/17 This 61-year-old gentleman is status post I to coronary bypass surgery. Progressing very well. His chest pain has improved. Patient is eating better. His maintaining sinus rhythm. No arrhythmias detected. Patient is being transferred to telemetry unit. Increase activity as tolerated. Pulmonary toilet 10/20/2017: Patient is clinically stable. Patient is anemic and received 2 units of blood transfusion. Patient seemed to be feeling better. No arrhythmias are noted. Patient is being transferred to telemetry unit. Patient is progressing very well Objective - Vital Signs Vital signs: Vital Signs Temp 98.4 F 10/20/17 12:41 Pulse 115 H 10/20/17 14:00 Resp 20 10/20/17 12:41 BP 100/65 10/20/17 13:00 Pulse Ox 93 L 10/20/17 13:00 Intake & Output 10/19/17 10/20/17 10/20/17 18:59 06:59 18:59 Intake Total 810 310 Output Total 23 1200 Balance 787 -890 Weight 101 kg 101 kg Intake: IV 60 0 NS KVO 60 0 Oral 750 Blood Product 310 Rc As-1 Unit 310 [id number] Output: Drainage 20 Left Calf 20 Urine 1200 Urine/Stool Mix 3 Other: Voiding Method Bedside Commode Urinal Urinal # Voids 1 # Bowel Movements 2 1 1 ABP, PAP, CO, CI - Last Documented Arterial Blood Pressure 99/48 Pulmonary Artery Pressure 32/16 Cardiac Output 6.8 Cardiac Index 3.3 - Exam GENERAL EXAM: Patient is alert and oriented and doesn't appear to be in any acute distress HEENT: Normocephalic. Normal reaction of pupils, equal size, normal range of extraocular motion. No erythema or exudates in the throat. NECK: No masses, no nuchal rigidity. CHEST: No chest wall deformity. LUNGS: Diminished breath sounds at bases HEART: S1 and S2 normal ABDOMEN: No hepatosplenomegaly, normal bowel sounds, no guarding or rigidity. SKIN: No rashes CENTRAL NERVOUS SYSTEM: No focal deficits. EXTREMITIES: No cyanosis, clubbing or edema. - Labs CBC & Chem 7: 10/20/17 15:11 10/20/17 15:11 Labs: Abnormal Lab Results - Last 24 Hours (Table) 10/19/17 10/19/17 10/20/17 Range/Units 06:17 20:54 04:39 RBC 2.32 L (4.30-5.90) m/uL Hgb 6.7 L* (13.0-17.5) gm/dL Hct 20.2 L (39.0-53.0) % RDW (11.5-15.5) % Lymphocytes # (1.0-4.8) k/uL Chloride (98-107) mmol/L Carbon Dioxide (22-30) mmol/L POC Glucose (mg/dL) 111 H (75-99) mg/dL Calcium (8.4-10.2) mg/dL Alkaline Phosphatase (38-126) U/L Total Protein (6.3-8.2) g/dL Albumin (3.5-5.0) g/dL Crossmatch See Detail 10/20/17 10/20/17 Range/Units 04:39 15:11 RBC 2.98 L (4.30-5.90) m/uL Hgb 8.1 L (13.0-17.5) gm/dL Hct 25.2 L (39.0-53.0) % RDW 15.7 H (11.5-15.5) % Lymphocytes # 0.8 L (1.0-4.8) k/uL Chloride 96 L (98-107) mmol/L Carbon Dioxide 32 H (22-30) mmol/L POC Glucose (mg/dL) (75-99) mg/dL Calcium 8.0 L (8.4-10.2) mg/dL Alkaline Phosphatase 152 H (38-126) U/L Total Protein 4.9 L (6.3-8.2) g/dL Albumin 2.7 L (3.5-5.0) g/dL Crossmatch Assessment and Plan (1) H/O heart bypass surgery Current Visit: Yes Status: Acute Code(s): Z95.1 - PRESENCE OF AORTOCORONARY BYPASS GRAFT SNOMED Code(s): 739824496 (2) History of CHF (congestive heart failure) Current Visit: Yes Status: Acute Code(s): Z86.79 - PERSONAL HISTORY OF OTHER DISEASES OF THE CIRCULATORY SYSTEM SNOMED Code(s): 109923386 (3) Hypertension Current Visit: Yes Status: Acute Code(s): I10 - ESSENTIAL (PRIMARY) HYPERTENSION SNOMED Code(s): 41759550 Plan: Patient is doing very well clinically. Received blood transfusion for anemia. Transferring to telemetry unit. Increase activity. Incentive spirometry.
--- NOTE | 2017-10-20 20:28 | PN ---
PROGRESS NOTE DATE OF SERVICE: 10/20/2017 PRESENTING COMPLAINT: Coronary artery bypass. INTERVAL HISTORY: Patient is status post coronary artery bypass. Continues to improve. Tolerating a diet. Had bowel movement. Has been ambulating. Daughter at the bedside. Patient's hemoglobin had dropped with some hypotension, and patient has been ordered a unit of blood today. REVIEW OF SYSTEMS: Done for constitutional, cardiovascular, GI, pulmonary; relevant findings as above. Does feel weak and tired. CURRENT MEDICATIONS: Reviewed. The patient's Lopressor dose has been cut back. PHYSICAL EXAMINATION: Temperature 98.4, pulse 111, respiration 20, blood pressure 100/65, pulse ox 93% on 2 L. GENERAL APPEARANCE: Sitting up in a chair, comfortable. EYES: Pupils equal. Conjunctivae pale. HEENT: External appearance of nose and ears normal. Oral cavity normal. NECK: JVD unable to assess. Mass not palpable. RESPIRATORY: Effort increased. LUNGS: Decreased breath sounds. CARDIOVASCULAR: First and second sounds normal. No edema. ABDOMEN: Soft Liver and spleen not palpable. PSYCHIATRY: Alert and oriented x3. Mood and affect normal. INVESTIGATIONS: White count 5.8, hemoglobin 6.7, potassium 3.9. BUN and creatinine are normal. ASSESSMENT: 1. Status post triple coronary artery bypass. Chest tubes removed. 2. Ischemic cardiomyopathy, ejection fraction 40%. 3. Obstructive sleep apnea; uses BiPAP. 4. Gastroesophageal reflux disease. 5. Chronic obstructive pulmonary disease. 6. Smoker. 7. Hypertension from acute blood loss. 8. Hyperlipidemia. 9. Obesity; body mass index 33.3. 10.Acute postoperative blood loss anemia expected from surgery, symptomatic with hypotension. 11.Dilutional thrombocytopenia. 12.Hypoalbuminemia as an acute phase reactant. PLAN: Patient's dose of beta emmanuel was cut back. Patient is getting a unit of blood. Care was discussed with the patient and his daughter at the bedside, Stefanie. Patient is overall doing much better. MMODL / IJN: [id number] /
[2017-10-20] MEDS: SENNOSIDES-DOCUSATE SODIUM 1 EACH TAB PO SCH (20:37)
[2017-10-21] MEDS: KETOROLAC 30 MG/ML 1 ML VIAL IVP SCH ×3 (06:28→18:34)
[2017-10-21 06:31] LABS: HCT 22.6 % (39.0-53.0); HGB 7.3 gm/dL (13.0-17.5); MCH 27.5 pg (25.0-35.0); MCHC 32.4 g/dL (31.0-37.0); MCV 84.9 fL (80.0-100.0); Mean Platelet Volume 6.7; Platelet Count 198 k/uL (150-450); RBC 2.67 m/uL (4.30-5.90); RDW 15.9 % (11.5-15.5); WBC 6.3 k/uL (3.8-10.6)
[2017-10-21] MEDS: FERROUS SULFATE 325 MG TAB PO SCH ×2 (06:31→16:55)
[2017-10-21] MEDS: ASCORBIC ACID 500 MG TAB PO SCH ×2 (06:31→16:55)
[2017-10-21] MEDS: PANTOPRAZOLE 40 MG TABLET PO SCH (06:31)
[2017-10-21 06:47] LABS: ALT 31 U/L (21-72); AST 28 U/L (17-59); Albumin 2.8 g/dL (3.5-5.0); Alkaline Phosphatase 256 U/L (38-126); Anion Gap 8 mmol/L; Blood Urea Nitrogen 18 mg/dL (9-20); Calcium 7.7 mg/dL (8.4-10.2); Carbon Dioxide 34 mmol/L (22-30); Chloride 97 mmol/L (98-107); Glucose 93 mg/dL (74-99); Potassium 3.7 mmol/L (3.5-5.1); Sodium 139 mmol/L (137-145); Total Bilirubin 0.7 mg/dL (0.2-1.3)
[2017-10-21] MEDS: HEPARIN SODIUM,PORCINE 5,000 UNIT/ML 1 ML VIAL SQ SCH ×2 (07:57→16:55)
[2017-10-21] MEDS: CLOPIDOGREL 75 MG TAB PO SCH (08:00)
[2017-10-21] MEDS: ASPIRIN 81 MG PO SCH (08:00)
[2017-10-21] MEDS: ATORVASTATIN 40 MG TAB PO SCH (08:00)
[2017-10-21] MEDS: METOPROLOL TARTRATE 50 MG TAB PO SCH ×2 (08:00→20:44)
[2017-10-21] MEDS ORDERED: CALCIUM CHLORIDE 1,000 MG in SODIUM CHLORIDE 0.9% 100 ML IVPB ONE (08:00)
[2017-10-21] MEDS: FUROSEMIDE 10 MG/ML 2 ML VIAL IV SCH ×2 (08:54→20:43)
[2017-10-21] MEDS: IPRATROPIUM-ALBUTEROL 3 ML NEB INHALATION SCH ×4 (08:58→20:39)
--- NOTE | 2017-10-21 09:05 | P.PN ---
Subjective Progress Note Date: 10/21/17 Principal diagnosis: Triple-vessel coronary artery disease. Totally occluded right coronary artery and left anterior descending artery. Mild to moderate left ventricular dysfunction on ventriculogram with EF 40-45%. Severe chronic obstructive pulmonary disease with preoperative FEV1 49% of predicted. Asthma. Obstructive sleep apnea. Hypertension. Hyperlipidemia. Previous tobacco dependence. Family history of coronary artery disease. Obesity. Preop nasal swab positive for MSSA. POD #5 elective triple coronary artery bypass grafting using the left internal mammary artery to the left anterior descending artery, reverse saphenous vein graft from the aorta to the posterior descending artery, reverse saphenous vein graft from the aorta to the second obtuse marginal artery. Endoscopic harvesting of the left greater saphenous vein. Intraoperative transesophageal echocardiogram and epi-aortic scanning. Intraoperative graft flow measurements using the [employer] system. Acute blood loss anemia, an expected outcome of surgery secondary to hemodilution and bypass pump. The patient is currently sitting up in the recliner in no acute distress. Does complain of mild sternal pain especially with coughing, controlled on current medications. Denies shortness of breath. Patient has ambulated in the hallway. Was transferred out of ICU to [address] [place] [address] yesterday. Patient has no new complaints. Objective - Vital Signs Vital signs: Vital Signs Temp 98.1 F 10/21/17 03:10 Pulse 104 H 10/21/17 03:10 Resp 18 10/21/17 03:10 BP 95/59 10/21/17 03:10 Pulse Ox 92 L 10/21/17 03:10 Intake & Output 10/20/17 10/21/17 10/21/17 18:59 06:59 18:59 Intake Total 550 360 Output Total 1200 200 Balance -650 -200 360 Weight 101 kg 99.7 kg Intake: IV 0 NS KVO 0 Oral 240 360 Blood Product 310 Rc As-1 Unit 310 [id number] Output: Urine 1200 200 Other: Voiding Method Urinal Urinal # Bowel Movements 1 1 ABP, PAP, CO, CI - Last Documented Arterial Blood Pressure 99/48 Pulmonary Artery Pressure 32/16 Cardiac Output 6.8 Cardiac Index 3.3 - Constitutional General appearance: Present: cooperative, no acute distress, obese - Respiratory Details: Lungs sounds diminished bilaterally with expiratory wheezes present. Respirations even, nonlabored. Currently on 2 L nasal cannula with oxygen saturation 97%. Able to achieve 1250 mL on his incentive spirometry. Strong cough. - Cardiovascular Details: S1, S2 present. Tachycardia but regular rate and rhythm, sinus tach on telemetry. Sternum stable. Palpable peripheral pulses bilaterally. Trace bilateral lower extremity edema present. No calf pain or tenderness noted. Heart hugger in place with patient demonstrating appropriate use. Antiembolism stockings, SCDs present. - Gastrointestinal Gastrointestinal Comment(s): Abdomen soft, nontender, nondistended. Active bowel sounds present 4 quadrants. Tolerating diet. Positive bowel movement. - Genitourinary Genitourinary Comment(s): Patient continues to void clear, yellow urine. - Integumentary Integumentary Comment(s): Skin is warm and dry with evidence of good perfusion. Anterior chest incision well approximated and covered with dry intact dressing. Left lower extremity EVH site well approximated. - Neurologic Neurologic: Present: CNII-XII intact - Musculoskeletal Musculoskeletal: Present: gait normal, strength equal bilaterally - Psychiatric Psychiatric: Present: A&O x's 3, appropriate affect, intact judgment & insight - Allied health notes Allied health notes reviewed: nursing - Labs CBC & Chem 7: 10/21/17 05:55 10/21/17 05:51 Labs: Abnormal Lab Results - Last 24 Hours (Table) 10/19/17 10/20/17 10/21/17 Range/Units 06:17 15:11 05:51 RBC 2.98 L (4.30-5.90) m/uL Hgb 8.1 L (13.0-17.5) gm/dL Hct 25.2 L (39.0-53.0) % RDW 15.7 H (11.5-15.5) % Lymphocytes # 0.8 L (1.0-4.8) k/uL Chloride 97 L (98-107) mmol/L Carbon Dioxide 34 H (22-30) mmol/L Calcium 7.7 L (8.4-10.2) mg/dL Alkaline Phosphatase 256 H (38-126) U/L Total Protein 5.0 L (6.3-8.2) g/dL Albumin 2.8 L (3.5-5.0) g/dL Crossmatch See Detail 10/21/17 Range/Units 05:55 RBC 2.67 L (4.30-5.90) m/uL Hgb 7.3 L (13.0-17.5) gm/dL Hct 22.6 L (39.0-53.0) % RDW 15.9 H (11.5-15.5) % Lymphocytes # (1.0-4.8) k/uL Chloride (98-107) mmol/L Carbon Dioxide (22-30) mmol/L Calcium (8.4-10.2) mg/dL Alkaline Phosphatase (38-126) U/L Total Protein (6.3-8.2) g/dL Albumin (3.5-5.0) g/dL Crossmatch Assessment and Plan (1) Triple vessel coronary artery disease Current Visit: Yes Status: Chronic Code(s): I25.10 - ATHSCL HEART DISEASE OF [place] CORONARY ARTERY W/O ANG PCTRS SNOMED Code(s): 394320664 (2) Hypertension Current Visit: Yes Status: Chronic Code(s): I10 - ESSENTIAL (PRIMARY) HYPERTENSION SNOMED Code(s): 86157728 (3) Hyperlipidemia Current Visit: Yes Status: Chronic Code(s): E78.5 - HYPERLIPIDEMIA, UNSPECIFIED SNOMED Code(s): 55578624 (4) COPD (chronic obstructive pulmonary disease) Current Visit: Yes Status: Chronic Code(s): J44.9 - CHRONIC OBSTRUCTIVE PULMONARY DISEASE, UNSPECIFIED SNOMED Code(s): 24634953 (5) Asthma Current Visit: Yes Status: Chronic Code(s): J45.909 - UNSPECIFIED ASTHMA, UNCOMPLICATED SNOMED Code(s): 932294625 (6) Obstructive sleep apnea Current Visit: Yes Status: Chronic Code(s): G47.33 - OBSTRUCTIVE SLEEP APNEA (ADULT) (PEDIATRIC) SNOMED Code(s): 11723225 (7) Tobacco dependence in remission Current Visit: No Status: Resolved Code(s): F17.201 - NICOTINE DEPENDENCE, UNSPECIFIED, IN REMISSION SNOMED Code(s): 063032735 (8) Family history of coronary artery disease Current Visit: Yes Status: Chronic Code(s): Z82.49 - FAMILY HX OF I[place]HE[place] HEART DIS AND OTH DIS OF THE CIRC SYS SNOMED Code(s): 232962614 (9) Obesity (BMI 30-39.9) Current Visit: Yes Status: Chronic Code(s): E66.9 - OBESITY, UNSPECIFIED SNOMED Code(s): 516443004 Plan: 1. Continue low-dose aspirin, statin, Plavix, heparin subcu, beta emmanuel therapy. Will increase beta emmanuel therapy as tolerated. 2. Wean O2 as tolerated. Encourage incentive spirometry use 10 times every hour. 3. Encourage continued smoking cessation. 4. Will give 20 mg IV Lasix BID x 48 hours. 5. Bronchodilators per pulmonology. 6. Increase activity, ambulate as tolerated. PT/OT/cardiac rehab following. 7. Diabetic management per primary care service. 8. GI/DVT prophylaxis. 9. Will monitor daily labs, x-rays. No need for transfusion. 10. Pain management with ordered medications. 11. More recommendations to follow. Discharge planning in progress. Anticipate discharge to home with home care. Time with Patient: Greater than 30
--- NOTE | 2017-10-21 10:20 | XR ---
EXAMINATION TYPE: XR chest 2V DATE OF EXAM: 10/21/2017 COMPARISON: Prior chest 10/20/2017 HISTORY: Status post cardiac surgery, abnormal chest x-ray TECHNIQUE: Frontal and lateral views of the chest are obtained. FINDINGS: Findings are similar to prior exam. Patient is post median sternotomy. No evident pneumoth orax. Bibasilar increased density persists. Heart size is stable, patient shows overlying cardiac jose ds and slight rotation. There are coronary artery calcifications. Prominent lung volume may be indica tive of underlying COPD. IMPRESSION: Essentially stable findings. Minimal basilar atelectasis and possible small effusions. P ostop changes as described.
[2017-10-21] MEDS: LISINOPRIL 2.5 MG TAB PO SCH (11:54)
--- NOTE | 2017-10-21 14:07 | P.PN ---
Subjective Progress Note Date: 10/21/17 Principal diagnosis: Symptomatic multivessel coronary artery disease, status post coronary artery bypass grafting, stop day #5 This is a 61-year-old white male with history of triple vessel coronary artery disease, totally occluded right coronary artery and left anterior descending artery, mild to moderate LV dysfunction with ejection fraction of 40-45%, history of severe COPD, FEV1 is in the range of 50%, history of obstructive sleep apnea, hypertension, previous history of smoking, patient underwent elective triple coronary artery bypass grafting using left internal mammary artery to the LAD, reverse saphenous vein graft to the posterior descending artery and reverse saphenous vein graft to the second obtuse marginal artery. Postoperatively, patient was on mechanical ventilation, I was notified about this patient last night, manage his ventilator, patient was extubated within a relatively short period of time after his surgery, however considering his ABG was marginal, patient was extubated to BiPAP, and today he was switched to a nasal cannula. Evaluated this morning, patient is relatively asymptomatic, his clinical course is progressing as expected, patient denies any shortness of breath. No chest pain. No nausea no vomiting no abdominal pain. Doing extremely well with incentive spirometry. And he is back on his bronchodilators. Reevaluated today on 10/18/2017, patient continues to do well, relatively asymptomatic, chest x-ray is reassuring. Patient is hemodynamically stable. Hemoglobin is a bit low at 7.1, and this is expected anemia secondary to blood loss secondary to surgery. Patient is now postoperative day #2. Patient is already ambulating in the hallway, and no specific complaints. Chest x-ray and labs were all reviewed. Reevaluated today on 10/19/2017, patient is postoperative day #3, doing great. Relatively asymptomatic. Hemoglobin is 6.9, no plans for blood transfusion at this point as per thoracic surgery. His basic metabolic profile is normal, and chest x-ray mostly significant for postoperative changes otherwise unremarkable. Reevaluated today on 10/20/2017, patient is postoperative day #4. Currently sitting in her recliner chair, in no distress, relatively asymptomatic, minimal pain, no shortness of breath no cough no wheezing. Doing well with incentive spirometry. On 10/21/2017 patient seen in follow-up on selective care unit. He sitting up in a chair, in no acute distress. His incentive spirometry effort today is 1500 , denies any worsening dyspnea, lung sounds are positive for diminished breath sounds bilaterally, patient has significant bilateral lower extremity edema, he is receiving diuretics per CT surgery. His FiO2 is at 2 L per nasal cannula with a pulse ox of 98%. He is afebrile, hemodynamically stable. Today's chest x-ray does stable findings, with minimal basilar atelectasis and possible small effusions. Lab work was reviewed, and shows no evidence of leukocytosis, today' s hemoglobin is 7.3, sodium is 139, potassium is 3.7, chloride is 97, carbon dioxide is 34, renal profile is within normal limits, with BUN of 18, creatinine 0.81. Alkaline phosphatase is up to 256 from 152. Patient's postop incisional sternal pain is reasonably controlled, patient has been ambulating, tolerating activity well. Sinus tachycardia on the monitor, patient is on beta emmanuel therapy. Continue nebulized bronchodilators continue current plan of treatment, anticipate discharge home possibly tomorrow. Objective - Vital Signs Vital signs: Vital Signs Temp 98.1 F 10/21/17 12:00 Pulse 104 H 10/21/17 12:38 Resp 18 10/21/17 12:00 BP 109/70 10/21/17 12:00 Pulse Ox 98 10/21/17 12:00 Intake & Output 10/20/17 10/21/17 10/21/17 18:59 06:59 18:59 Intake Total 550 890 Output Total 1200 200 Balance -650 -200 890 Weight 101 kg 99.7 kg 99.7 kg Intake: IV 0 10 NS KVO 0 10 Intake, IV Titration 100 Amount Calcium Chloride 1,000 mg 100 In Sodium Chloride 0.9% 100 ml @ 100 mls/hr IVPB ONCE ONE Rx#:[id number] Oral 240 780 Blood Product 310 Rc As-1 Unit 310 [id number] Output: Urine 1200 200 Other: Voiding Method Urinal Urinal # Voids 1 # Bowel Movements 1 1 ABP, PAP, CO, CI - Last Documented Arterial Blood Pressure 99/48 Pulmonary Artery Pressure 32/16 Cardiac Output 6.8 Cardiac Index 3.3 - Exam Physical Exam: Revealed a 61-year-old white male in no distress. Head: Atraumatic normocephalic. HEENT: PERRLA, EOMI. [Neck is supple.] [No neck masses.] [No thyromegaly.] [No JVD.] Chest: [Diminished breath sounds at the bases, no crackles, no rhonchi, no wheezes.] No chest wall tenderness. Midsternal incision is clean dry and intact, sternum is stable Cardiac Exam: [Normal S1 and S2, no S3 gallop, 2/6 systolic murmur thought the precordium.] Abdomen: [Obese, Soft, nontender, no megaly, no rebound, no guarding, normal bowel sounds.] Extremities: [No clubbing. There is 2+ bilateral lower extremity edema noted, both lower extremities are Mckay wrapped, patient is receiving diuretics per CT surgery Neurological Exam: [No focal neurologic deficit.] Lymphatics: No lymphadenopathy. Psychiatric: Normal mood affect and mental status examination. - Labs CBC & Chem 7: 10/21/17 05:55 10/21/17 05:51 Labs: Abnormal Lab Results - Last 24 Hours (Table) 10/20/17 10/21/17 10/21/17 Range/Units 15:11 05:51 05:55 RBC 2.98 L 2.67 L (4.30-5.90) m/uL Hgb 8.1 L 7.3 L (13.0-17.5) gm/dL Hct 25.2 L 22.6 L (39.0-53.0) % RDW 15.7 H 15.9 H (11.5-15.5) % Lymphocytes # 0.8 L (1.0-4.8) k/uL Chloride 97 L (98-107) mmol/L Carbon Dioxide 34 H (22-30) mmol/L Calcium 7.7 L (8.4-10.2) mg/dL Alkaline Phosphatase 256 H (38-126) U/L Total Protein 5.0 L (6.3-8.2) g/dL Albumin 2.8 L (3.5-5.0) g/dL Assessment and Plan Plan: Assessment: 1 status post CABG, for triple vessel coronary artery disease. postoperative day #5 2 ischemic cardiomyopathy and ejection fraction of 40%. 3 minimal postoperative atelectasis, expected. 4 history of COPD, Gold stage III FEV1 is in the range of 50%. 5 history of obstructive sleep apnea, on BiPAP. 6 essential hypertension 7 hyperlipidemia 8 obesity, BMI is 33.3 9 remote smoking history. Recommendation: Continue nebulized bronchodilators, continue pulmonary toileting, continue encouraging incentive spirometry use. IV diuretics per CT surgery, pain is reasonably controlled, patient is ambulating. Vitals are stable. We'll continue to follow I performed a history & physical examination of the patient and discussed their management with my nurse practitioner, Alma Meza. I reviewed the nurse practitioner's note and agree with the documented findings and plan of care. Lung sounds are positive for diminished breath sounds. The findings and the impression was discussed with the patient. I attest to the documentation by the nurse practitioner. Time with Patient: Less than 30
--- NOTE | 2017-10-21 15:09 | P.PN ---
Subjective Progress Note Date: 10/21/17 This 61-year-old gentleman is status post I to coronary bypass surgery. Progressing very well. His chest pain has improved. Patient is eating better. His maintaining sinus rhythm. No arrhythmias detected. Patient is being transferred to telemetry unit. Increase activity as tolerated. Pulmonary toilet 10/20/2017: Patient is clinically stable. Patient is anemic and received 2 units of blood transfusion. Patient seemed to be feeling better. No arrhythmias are noted. Patient is being transferred to telemetry unit. Patient is progressing very well. 10/21/2017:. Patient remains clinically stable. Still having problem with urination and patient has a Longo catheter. Tolerating activity around the room. Denies any chest pain or shortness of breath. Patient may be transferred to a nursing facility with rehab. Meanwhile patient will continue current medical therapy. Incentive spirometry Objective - Vital Signs Vital signs: Vital Signs Temp 98.1 F 10/21/17 12:00 Pulse 104 H 10/21/17 12:38 Resp 18 10/21/17 12:00 BP 109/70 10/21/17 12:00 Pulse Ox 98 10/21/17 12:00 Intake & Output 10/20/17 10/21/17 10/21/17 18:59 06:59 18:59 Intake Total 550 1130 Output Total 1200 200 Balance -650 -200 1130 Weight 101 kg 99.7 kg 99.7 kg Intake: IV 0 10 NS KVO 0 10 Intake, IV Titration 100 Amount Calcium Chloride 1,000 mg 100 In Sodium Chloride 0.9% 100 ml @ 100 mls/hr IVPB ONCE ONE Rx#:[id number] Oral 240 1020 Blood Product 310 Rc As-1 Unit 310 [id number] Output: Urine 1200 200 Other: Voiding Method Urinal Urinal # Voids 1 # Bowel Movements 1 1 ABP, PAP, CO, CI - Last Documented Arterial Blood Pressure 99/48 Pulmonary Artery Pressure 32/16 Cardiac Output 6.8 Cardiac Index 3.3 - Exam GENERAL EXAM: Patient is alert and oriented and doesn't appear to be in any acute distress HEENT: Normocephalic. Normal reaction of pupils, equal size, normal range of extraocular motion. No erythema or exudates in the throat. NECK: No masses, no nuchal rigidity. CHEST: No chest wall deformity. LUNGS: Diminished breath sounds at bases HEART: S1 and S2 normal ABDOMEN: No hepatosplenomegaly, normal bowel sounds, no guarding or rigidity. SKIN: No rashes CENTRAL NERVOUS SYSTEM: No focal deficits. EXTREMITIES: No cyanosis, clubbing or edema. - Labs CBC & Chem 7: 10/21/17 05:55 10/21/17 05:51 Labs: Abnormal Lab Results - Last 24 Hours (Table) 10/20/17 10/21/17 10/21/17 Range/Units 15:11 05:51 05:55 RBC 2.98 L 2.67 L (4.30-5.90) m/uL Hgb 8.1 L 7.3 L (13.0-17.5) gm/dL Hct 25.2 L 22.6 L (39.0-53.0) % RDW 15.7 H 15.9 H (11.5-15.5) % Lymphocytes # 0.8 L (1.0-4.8) k/uL Chloride 97 L (98-107) mmol/L Carbon Dioxide 34 H (22-30) mmol/L Calcium 7.7 L (8.4-10.2) mg/dL Alkaline Phosphatase 256 H (38-126) U/L Total Protein 5.0 L (6.3-8.2) g/dL Albumin 2.8 L (3.5-5.0) g/dL Assessment and Plan (1) H/O heart bypass surgery Current Visit: Yes Status: Acute Code(s): Z95.1 - PRESENCE OF AORTOCORONARY BYPASS GRAFT SNOMED Code(s): 481847861 (2) History of CHF (congestive heart failure) Current Visit: Yes Status: Acute Code(s): Z86.79 - PERSONAL HISTORY OF OTHER DISEASES OF THE CIRCULATORY SYSTEM SNOMED Code(s): 615606494 (3) Hypertension Current Visit: Yes Status: Acute Code(s): I10 - ESSENTIAL (PRIMARY) HYPERTENSION SNOMED Code(s): 25452479 Plan: Clinically stable. His creatinine has shown slight improvement. Patient still has a catheter. Arrangements are being made for transfer to nursing facility with rehab
--- NOTE | 2017-10-21 18:05 | PN ---
PROGRESS NOTE DATE OF SERVICE: 10/21/2017 PRESENTING COMPLAINT: Coronary artery bypass. INTERVAL HISTORY: The patient is status post coronary artery bypass, moved out of the ICU. Continues to do well. Had a bowel movement. The patient did receive a unit of blood yesterday. Otherwise doing well. Breathing is stable. REVIEW OF SYSTEMS: Review of systems done for constitutional, cardiovascular, GI, pulmonary; relevant findings as above. CURRENT MEDICATIONS: Current medications are reviewed. IV Lasix was ordered today. Patient is also on Zestril. PHYSICAL EXAMINATION: On examination, temperature 98.1, pulse 113, respiration 18, blood pressure 109/70, pulse ox 98% on 2 L. GENERAL APPEARANCE: Sitting up on a chair, comfortable. EYES: Pupils equal. Conjunctivae pale. NECK: JVD not raised. Mass not palpable. RESPIRATORY: Effort normal. LUNGS :Decreased breath sounds. CARDIOVASCULAR: First and second sounds normal. Some edema. ABDOMEN: Soft, nontender. Liver and spleen not palpable. PSYCHIATRY: Alert and oriented x3. Mood and affect normal. INVESTIGATIONS: White count 6.3, hemoglobin 7.3, potassium 3.7, albumin 2.8. Telemetry did show sinus tachycardia with activity. ASSESSMENT: 1. Status post triple coronary artery bypass, chest tubes removed. 2. Ischemic cardiomyopathy, ejection fraction 40%. 3. Obstructive sleep apnea, uses a BiPAP. 4. Gastroesophageal reflux disease. 5. Chronic obstructive pulmonary disease in an ex-smoker. 6. Hypotension from acute blood loss. 7. Hyperlipidemia. 8. Obesity; body mass index 33.3. 9. Acute postoperative blood-loss anemia as expected from surgery, status post blood transfusion. 10.Dilutional thrombocytopenia. 11.Hypoalbuminemia as an acute phase reactant. 12.Sinus tachycardia, probably from anemia. PLAN: Continue current medication and treatment plan. Earlier today the patient is put on Lasix by Cardiology. Clinically patient doing well. Keep an eye on patient's hemoglobin. Given the low EF, will add Aldactone. MMODL / IJN: [id number] /
[2017-10-21] MEDS: SPIRONOLACTONE 25 MG TAB PO SCH (18:34)
[2017-10-21] MEDS: SENNOSIDES-DOCUSATE SODIUM 1 EACH TAB PO SCH (20:44)
[2017-10-22] MEDS: KETOROLAC 30 MG/ML 1 ML VIAL IVP SCH ×2 (00:10→06:43)
[2017-10-22] MEDS: HEPARIN SODIUM,PORCINE 5,000 UNIT/ML 1 ML VIAL SQ SCH ×4 (00:10→23:18)
[2017-10-22] MEDS: ASCORBIC ACID 500 MG TAB PO SCH ×2 (06:45→16:36)
[2017-10-22] MEDS: PANTOPRAZOLE 40 MG TABLET PO SCH (06:45)
[2017-10-22] MEDS: FERROUS SULFATE 325 MG TAB PO SCH ×2 (06:45→16:36)
[2017-10-22 07:40] LABS: Basophils % (A) 1 %; Eosinophils # (A) 0.3 k/uL (0-0.7); Eosinophils % (A) 4 %; HCT 25.1 % (39.0-53.0); HGB 7.9 gm/dL (13.0-17.5); Hypochromasia Slight; Lymphocytes # (A) 1.1 k/uL (1.0-4.8); Lymphocytes % (A) 17 %; MCH 26.7 pg (25.0-35.0); MCHC 31.3 g/dL (31.0-37.0); MCV 85.4 fL (80.0-100.0); Mean Platelet Volume 6.9; Monocytes # (A) 0.4 k/uL (0-1.0); Monocytes % (A) 7 %; Neutrophils # (A) 4.6 k/uL (1.3-7.7); Neutrophils % (A) 69 %; Platelet Count 288 k/uL (150-450); RBC 2.94 m/uL (4.30-5.90); RDW 15.8 % (11.5-15.5); WBC 6.7 k/uL (3.8-10.6)
--- NOTE | 2017-10-22 08:00 | XR ---
EXAMINATION TYPE: XR chest 2V DATE OF EXAM: 10/22/2017 COMPARISON: Prior chest x-ray 10/21/2017 HISTORY: Status post cardiac surgery, abnormal chest x-ray TECHNIQUE: Frontal and lateral views of the chest are obtained. FINDINGS: Basilar effusions no similar appearance. No evident pneumothorax. Heart size is stable. Pa tient is post median sternotomy. Pulmonary vascularity and janice not significantly changed. IMPRESSION: Stable findings, postop change, small basilar effusions and associated atelectasis. Card iomegaly.
[2017-10-22 08:01] LABS: ALT 41 U/L (21-72); AST 35 U/L (17-59); Albumin 3.3 g/dL (3.5-5.0); Alkaline Phosphatase 283 U/L (38-126); Anion Gap 13 mmol/L; Blood Urea Nitrogen 20 mg/dL (9-20); Calcium 8.3 mg/dL (8.4-10.2); Carbon Dioxide 33 mmol/L (22-30); Chloride 95 mmol/L (98-107); Glucose 98 mg/dL (74-99); Potassium 3.6 mmol/L (3.5-5.1); Sodium 141 mmol/L (137-145); Total Bilirubin 0.9 mg/dL (0.2-1.3); Total Protein 5.8 g/dL (6.3-8.2)
[2017-10-22] MEDS ORDERED: POTASSIUM CHLORIDE ER 20 MEQ TAB.ER PO STA (08:36)
[2017-10-22] MEDS: ASPIRIN 81 MG PO SCH (08:57)
[2017-10-22] MEDS: METOPROLOL TARTRATE 50 MG TAB PO SCH (08:57)
[2017-10-22] MEDS: ATORVASTATIN 40 MG TAB PO SCH (08:57)
[2017-10-22] MEDS: CLOPIDOGREL 75 MG TAB PO SCH (08:57)
[2017-10-22] MEDS: SPIRONOLACTONE 25 MG TAB PO SCH (08:57)
[2017-10-22] MEDS: FUROSEMIDE 10 MG/ML 2 ML VIAL IV SCH ×2 (08:58→20:32)
[2017-10-22] MEDS: IPRATROPIUM-ALBUTEROL 3 ML NEB INHALATION SCH ×4 (09:04→21:09)
[2017-10-22] MEDS ORDERED: METOPROLOL TARTRATE 25 MG TAB PO STA (09:37)
--- NOTE | 2017-10-22 09:46 | P.PN ---
Subjective Progress Note Date: 10/22/17 Principal diagnosis: Triple-vessel coronary artery disease. Totally occluded right coronary artery and left anterior descending artery. Mild to moderate left ventricular dysfunction on ventriculogram with EF 40-45%. Severe chronic obstructive pulmonary disease with preoperative FEV1 49% of predicted. Asthma. Obstructive sleep apnea. Hypertension. Hyperlipidemia. Previous tobacco dependence. Family history of coronary artery disease. Obesity. Preop nasal swab positive for MSSA. POD #6 elective triple coronary artery bypass grafting using the left internal mammary artery to the left anterior descending artery, reverse saphenous vein graft from the aorta to the posterior descending artery, reverse saphenous vein graft from the aorta to the second obtuse marginal artery. Endoscopic harvesting of the left greater saphenous vein. Intraoperative transesophageal echocardiogram and epi-aortic scanning. Intraoperative graft flow measurements using the [employer] system. Acute blood loss anemia, an expected outcome of surgery secondary to hemodilution and bypass pump. The patient is currently sitting up in the recliner in no acute distress. Denies pain except when coughing, controlled on current medications. Denies shortness of breath. Patient has no new complaints. Objective - Vital Signs Vital signs: Vital Signs Temp 97.1 F L 10/22/17 00:00 Pulse 106 H 10/22/17 03:20 Resp 18 10/22/17 03:20 BP 106/59 10/22/17 03:20 Pulse Ox 91 L 10/22/17 03:20 Intake & Output 10/21/17 10/22/17 10/22/17 18:59 06:59 18:59 Intake Total 1352 200 Balance 1352 200 Weight 99.7 kg 99.2 kg Intake: IV 10 NS KVO 10 Intake, IV Titration 100 Amount Calcium Chloride 1,000 mg 100 In Sodium Chloride 0.9% 100 ml @ 100 mls/hr IVPB ONCE ONE Rx#:[id number] Oral 1242 200 Other: Voiding Method Urinal # Voids 3 1 ABP, PAP, CO, CI - Last Documented Arterial Blood Pressure 99/48 Pulmonary Artery Pressure 32/16 Cardiac Output 6.8 Cardiac Index 3.3 - Constitutional General appearance: Present: cooperative, no acute distress, obese - Respiratory Details: Lungs sounds diminished bilaterally. Respirations even, nonlabored. Currently on 2 L nasal cannula with oxygen saturation 98%. Able to achieve 1500 mL on his incentive spirometry. Strong cough. - Cardiovascular Details: S1, S2 present. Tachycardic but regular rate and rhythm, sinus tach on telemetry. Sternum stable. Palpable peripheral pulses bilaterally. Trace bilateral lower extremity edema present. No calf pain or tenderness noted. Heart hugger in place with patient demonstrating appropriate use. Antiembolism stockings, SCDs present. - Gastrointestinal Gastrointestinal Comment(s): Abdomen soft, nontender, nondistended. Active bowel sounds present 4 quadrants. Tolerating diet. Positive bowel movement. - Genitourinary Genitourinary Comment(s): Patient continues to void clear, yellow urine. - Integumentary Integumentary Comment(s): Skin is warm and dry with evidence of good perfusion. Anterior chest incision well approximated and covered with dry intact dressing. Left lower extremity EVH site well approximated. - Neurologic Neurologic: Present: CNII-XII intact - Musculoskeletal Musculoskeletal: Present: gait normal, strength equal bilaterally - Psychiatric Psychiatric: Present: A&O x's 3, appropriate affect, intact judgment & insight - Allied health notes Allied health notes reviewed: nursing - Labs CBC & Chem 7: 10/22/17 06:55 10/22/17 06:55 Labs: Abnormal Lab Results - Last 24 Hours (Table) 10/22/17 Range/Units 06:55 RBC 2.94 L (4.30-5.90) m/uL Hgb 7.9 L (13.0-17.5) gm/dL Hct 25.1 L (39.0-53.0) % RDW 15.8 H (11.5-15.5) % - Imaging and Cardiology Chest x-ray: image reviewed Assessment and Plan (1) Triple vessel coronary artery disease Current Visit: Yes Status: Chronic Code(s): I25.10 - ATHSCL HEART DISEASE OF [place] CORONARY ARTERY W/O ANG PCTRS SNOMED Code(s): 682540153 (2) Hypertension Current Visit: Yes Status: Chronic Code(s): I10 - ESSENTIAL (PRIMARY) HYPERTENSION SNOMED Code(s): 87198402 (3) Hyperlipidemia Current Visit: Yes Status: Chronic Code(s): E78.5 - HYPERLIPIDEMIA, UNSPECIFIED SNOMED Code(s): 99532239 (4) COPD (chronic obstructive pulmonary disease) Current Visit: Yes Status: Chronic Code(s): J44.9 - CHRONIC OBSTRUCTIVE PULMONARY DISEASE, UNSPECIFIED SNOMED Code(s): 05289541 (5) Asthma Current Visit: Yes Status: Chronic Code(s): J45.909 - UNSPECIFIED ASTHMA, UNCOMPLICATED SNOMED Code(s): 206692939 (6) Obstructive sleep apnea Current Visit: Yes Status: Chronic Code(s): G47.33 - OBSTRUCTIVE SLEEP APNEA (ADULT) (PEDIATRIC) SNOMED Code(s): 06478432 (7) Tobacco dependence in remission Current Visit: No Status: Resolved Code(s): F17.201 - NICOTINE DEPENDENCE, UNSPECIFIED, IN REMISSION SNOMED Code(s): 468236440 (8) Family history of coronary artery disease Current Visit: Yes Status: Chronic Code(s): Z82.49 - FAMILY HX OF ISCHEM HEART DIS AND OTH DIS OF THE CIRC SYS SNOMED Code(s): 910383954 (9) Obesity (BMI 30-39.9) Current Visit: Yes Status: Chronic Code(s): E66.9 - OBESITY, UNSPECIFIED SNOMED Code(s): 170713278 Plan: 1. Continue low-dose aspirin, statin, Plavix, heparin subcu, beta emmanuel therapy. Will increase beta emmanuel therapy as tolerated. 2. EF 55-60% post bypass surgery. Aldactone and lisinopril discontinued. 3. Wean O2 as tolerated. Encourage incentive spirometry use 10 times every hour. 4. Encourage continued smoking cessation. 5. Will give 20 mg IV Lasix BID x 48 hours. 6. Bronchodilators per pulmonology. 7. Increase activity, ambulate as tolerated. PT/OT/cardiac rehab following. 8. Diabetic management per primary care service. 9. GI/DVT prophylaxis. 10. Will monitor daily labs, x-rays. No need for transfusion. 11. Pain management with ordered medications. 12. More recommendations to follow. Discharge planning in progress. Anticipate discharge to home with home care tomorrow. Time with Patient: Greater than 30
--- NOTE | 2017-10-22 13:09 | P.PN ---
Subjective Progress Note Date: 10/22/17 Principal diagnosis: Status post CABG This is a 61-year-old white male with history of triple vessel coronary artery disease, totally occluded right coronary artery and left anterior descending artery, mild to moderate LV dysfunction with ejection fraction of 40-45%, history of severe COPD, FEV1 is in the range of 50%, history of obstructive sleep apnea, hypertension, previous history of smoking, patient underwent elective triple coronary artery bypass grafting using left internal mammary artery to the LAD, reverse saphenous vein graft to the posterior descending artery and reverse saphenous vein graft to the second obtuse marginal artery. Postoperatively, patient was on mechanical ventilation, I was notified about this patient last night, manage his ventilator, patient was extubated within a relatively short period of time after his surgery, however considering his ABG was marginal, patient was extubated to BiPAP, and today he was switched to a nasal cannula. Evaluated this morning, patient is relatively asymptomatic, his clinical course is progressing as expected, patient denies any shortness of breath. No chest pain. No nausea no vomiting no abdominal pain. Doing extremely well with incentive spirometry. And he is back on his bronchodilators. Reevaluated today on 10/18/2017, patient continues to do well, relatively asymptomatic, chest x-ray is reassuring. Patient is hemodynamically stable. Hemoglobin is a bit low at 7.1, and this is expected anemia secondary to blood loss secondary to surgery. Patient is now postoperative day #2. Patient is already ambulating in the hallway, and no specific complaints. Chest x-ray and labs were all reviewed. Reevaluated today on 10/19/2017, patient is postoperative day #3, doing great. Relatively asymptomatic. Hemoglobin is 6.9, no plans for blood transfusion at this point as per thoracic surgery. His basic metabolic profile is normal, and chest x-ray mostly significant for postoperative changes otherwise unremarkable. Reevaluated today on 10/20/2017, patient is postoperative day #4. Currently sitting in her recliner chair, in no distress, relatively asymptomatic, minimal pain, no shortness of breath no cough no wheezing. Doing well with incentive spirometry. Reevaluated today on 10/22/2017, patient is doing quite well, ambulating in the hallway, chest x-ray is showing small bilateral pleural effusions. Patient is on Lasix, relatively asymptomatic. CBC is relatively normal hemoglobin is 7.9, no need for blood transfusion. Basic metabolic profile is normal renal profile is normal. Objective - Vital Signs Vital signs: Vital Signs Temp 100 F H 10/22/17 08:00 Pulse 112 H 10/22/17 12:36 Resp 18 10/22/17 08:00 BP 109/59 10/22/17 08:00 Pulse Ox 98 10/22/17 08:00 Intake & Output 10/21/17 10/22/17 10/22/17 18:59 06:59 18:59 Intake Total 1352 200 240 Balance 1352 200 240 Weight 99.7 kg 99.2 kg 99.2 kg Intake: IV 10 NS KVO 10 Intake, IV Titration 100 Amount Calcium Chloride 1,000 mg 100 In Sodium Chloride 0.9% 100 ml @ 100 mls/hr IVPB ONCE ONE Rx#:[id number] Oral 1242 200 240 Other: Voiding Method Urinal # Voids 3 1 ABP, PAP, CO, CI - Last Documented Arterial Blood Pressure 99/48 Pulmonary Artery Pressure 32/16 Cardiac Output 6.8 Cardiac Index 3.3 - Exam Physical Exam: Revealed a 61-year-old white male in no distress. Head: Atraumatic normocephalic. HEENT: PERRLA, EOMI. [Neck is supple.] [No neck masses.] [No thyromegaly.] [No JVD.] Chest: [Diminished breath sounds at the bases, no crackles, no rhonchi, no wheezes.] No chest wall tenderness. Cardiac Exam: [Normal S1 and S2, no S3 gallop, 2/6 systolic murmur thought the precordium.] Abdomen: [Obese, Soft, nontender, no megaly, no rebound, no guarding, normal bowel sounds.] Extremities: [No clubbing, no edema, no cyanosis.] Neurological Exam: [No focal neurologic deficit.] Lymphatics: No lymphadenopathy. Psychiatric: Normal mood affect and mental status examination. - Labs CBC & Chem 7: 10/22/17 06:55 10/22/17 06:55 Labs: Abnormal Lab Results - Last 24 Hours (Table) 10/22/17 10/22/17 Range/Units 06:55 06:55 RBC 2.94 L (4.30-5.90) m/uL Hgb 7.9 L (13.0-17.5) gm/dL Hct 25.1 L (39.0-53.0) % RDW 15.8 H (11.5-15.5) % Chloride 95 L (98-107) mmol/L Carbon Dioxide 33 H (22-30) mmol/L Calcium 8.3 L (8.4-10.2) mg/dL Alkaline Phosphatase 283 H (38-126) U/L Total Protein 5.8 L (6.3-8.2) g/dL Albumin 3.3 L (3.5-5.0) g/dL Assessment and Plan Assessment: Impression: 1 status post CABG, for triple vessel coronary artery disease. postoperative day #6 2 ischemic cardiomyopathy and ejection fraction of 40%. 3 minimal postoperative atelectasis, expected. Small bilateral pleural effusions, expected 4 history of COPD, Gold stage III FEV1 is in the range of 50%. 5 history of obstructive sleep apnea, on BiPAP. 6 essential hypertension 7 hyperlipidemia Recommendation: Continue present treatment plan including bronchodilators, diuretics, incentive spirometry, ambulation, discharge planning probably today or in the next 24 hours. Time with Patient: Less than 30
--- NOTE | 2017-10-22 15:47 | P.PN ---
Subjective Progress Note Date: 10/22/17 This 61-year-old gentleman is status post I to coronary bypass surgery. Progressing very well. His chest pain has improved. Patient is eating better. His maintaining sinus rhythm. No arrhythmias detected. Patient is being transferred to telemetry unit. Increase activity as tolerated. Pulmonary toilet 10/20/2017: Patient is clinically stable. Patient is anemic and received 2 units of blood transfusion. Patient seemed to be feeling better. No arrhythmias are noted. Patient is being transferred to telemetry unit. Patient is progressing very well. 10/21/2017:. Patient remains clinically stable. Still having problem with urination and patient has a Longo catheter. Tolerating activity around the room. Denies any chest pain or shortness of breath. Patient may be transferred to a nursing facility with rehab. Meanwhile patient will continue current medical therapy. Incentive spirometry. 10/22/2017: Patient is critically stable. Chest x-ray showed some pleural effusion. Getting higher dose of Lasix. Denies any significant chest pain. Tolerating activity fairly well. Slightly tachycardic. Pectoral critically stable. Increase activity. Possible discharge within next 24-48 hours Objective - Vital Signs Vital signs: Vital Signs Temp 99.0 F 10/22/17 12:00 Pulse 112 H 10/22/17 12:36 Resp 18 10/22/17 12:00 BP 98/71 10/22/17 12:00 Pulse Ox 97 10/22/17 12:00 Intake & Output 10/21/17 10/22/17 10/22/17 18:59 06:59 18:59 Intake Total 1352 200 960 Balance 1352 200 960 Weight 99.7 kg 99.2 kg 99.2 kg Intake: IV 10 NS KVO 10 Intake, IV Titration 100 Amount Calcium Chloride 1,000 mg 100 In Sodium Chloride 0.9% 100 ml @ 100 mls/hr IVPB ONCE ONE Rx#:[id number] Oral 1242 200 960 Other: Voiding Method Urinal # Voids 3 1 2 ABP, PAP, CO, CI - Last Documented Arterial Blood Pressure 99/48 Pulmonary Artery Pressure 32/16 Cardiac Output 6.8 Cardiac Index 3.3 - Exam GENERAL EXAM: Patient is alert and oriented and doesn't appear to be in any acute distress HEENT: Normocephalic. Normal reaction of pupils, equal size, normal range of extraocular motion. No erythema or exudates in the throat. NECK: No masses, no nuchal rigidity. CHEST: No chest wall deformity. LUNGS: Diminished breath sounds at bases HEART: S1 and S2 normal ABDOMEN: No hepatosplenomegaly, normal bowel sounds, no guarding or rigidity. SKIN: No rashes CENTRAL NERVOUS SYSTEM: No focal deficits. EXTREMITIES: No cyanosis, clubbing or edema. - Labs CBC & Chem 7: 10/22/17 06:55 10/22/17 06:55 Labs: Abnormal Lab Results - Last 24 Hours (Table) 10/22/17 10/22/17 Range/Units 06:55 06:55 RBC 2.94 L (4.30-5.90) m/uL Hgb 7.9 L (13.0-17.5) gm/dL Hct 25.1 L (39.0-53.0) % RDW 15.8 H (11.5-15.5) % Chloride 95 L (98-107) mmol/L Carbon Dioxide 33 H (22-30) mmol/L Calcium 8.3 L (8.4-10.2) mg/dL Alkaline Phosphatase 283 H (38-126) U/L Total Protein 5.8 L (6.3-8.2) g/dL Albumin 3.3 L (3.5-5.0) g/dL Assessment and Plan (1) H/O heart bypass surgery Current Visit: Yes Status: Acute Code(s): Z95.1 - PRESENCE OF AORTOCORONARY BYPASS GRAFT SNOMED Code(s): 845147670 (2) History of CHF (congestive heart failure) Current Visit: Yes Status: Acute Code(s): Z86.79 - PERSONAL HISTORY OF OTHER DISEASES OF THE CIRCULATORY SYSTEM SNOMED Code(s): 428287963 (3) Hypertension Current Visit: Yes Status: Acute Code(s): I10 - ESSENTIAL (PRIMARY) HYPERTENSION SNOMED Code(s): 43705804 Plan: Continue current medical therapy. Increase physical activity. Discharged in 24 hours
[2017-10-22] MEDS: METOPROLOL TARTRATE 25 MG TAB PO SCH (20:31)
[2017-10-22] MEDS: SENNOSIDES-DOCUSATE SODIUM 1 EACH TAB PO SCH (20:33)
--- NOTE | 2017-10-22 22:57 | PN ---
PROGRESS NOTE DATE OF SERVICE: 10/22/2017 PRESENTING COMPLAINT: Coronary bypass. INTERVAL HISTORY: The patient is status post coronary bypass and walking up and down. Edema still present. Getting IV Lasix. Patient did receive blood a couple of days ago. Breathing is getting better. Appetite is getting better. Had a bowel movement. REVIEW OF SYSTEMS: Done for constitutional, cardiovascular, GI, pulmonary; relevant findings as above. CURRENT MEDICATIONS: Reviewed that include DuoNeb, Lipitor, Plavix, Lopressor 75 twice a day. PHYSICAL EXAMINATION: Temperature 99, pulse 116, respiration 18, blood pressure 98/71, pulse ox 97% on 2 L. GENERAL APPEARANCE: Sitting up, comfortable. EYES: Pupils equal. Conjunctivae pale. HEENT: External appearance and ears and nose normal. Oral cavity normal. NECK: JVD unable to assess. Mass not palpable. Respiratory effort increased. LUNGS: Decreased breath sounds. CARDIOVASCULAR: First and seconds sounds normal, edema present. ABDOMEN: Soft, nontender. Liver and spleen not palpable. PSYCHIATRY: Alert and oriented x3. Mood and affect was normal. INVESTIGATIONS: Hemoglobin 7.9, potassium 3.6. ASSESSMENT: 1. Status post triple coronary artery bypass. Chest tubes removed. 2. Ischemic cardiomyopathy, EF 40%. 3. Obstructive sleep apnea. Uses a BiPAP. 4. Gastroesophageal reflux disease. 5. Chronic obstructive pulmonary disease in an ex-smoker. 6. Hypotension from acute blood loss and the patient is on antihypertensive. 7. Hyperlipidemia. 8. Obesity; BMI 33.3. 9. Acute postop blood loss anemia, expected from surgery. 10.Dilutional thrombocytopenia. 11.Hypoalbuminemia as an acute phase reactant. 12.Sinus tachycardia likely from anemia. PLAN: If the patient's hemoglobin remains on the lower side and the patient is hypotensive, patient may benefit from a unit of blood. Care was discussed with the patient. The patient remains on IV Lasix. MMODL / IJN: [id number] /
[2017-10-23] MEDS: ASCORBIC ACID 500 MG TAB PO SCH (06:29)
[2017-10-23] MEDS: FERROUS SULFATE 325 MG TAB PO SCH (06:29)
[2017-10-23] MEDS: PANTOPRAZOLE 40 MG TABLET PO SCH (06:29)
[2017-10-23 06:39] LABS: Basophils % (A) 1 %; Eosinophils # (A) 0.4 k/uL (0-0.7); Eosinophils % (A) 4 %; HCT 26.3 % (39.0-53.0); HGB 8.2 gm/dL (13.0-17.5); Hypochromasia Slight; Lymphocytes # (A) 1.4 k/uL (1.0-4.8); Lymphocytes % (A) 15 %; MCH 26.7 pg (25.0-35.0); MCHC 31.2 g/dL (31.0-37.0); MCV 85.5 fL (80.0-100.0); Mean Platelet Volume 6.8; Monocytes # (A) 0.5 k/uL (0-1.0); Monocytes % (A) 5 %; Neutrophils # (A) 6.5 k/uL (1.3-7.7); Neutrophils % (A) 72 %; Platelet Count 329 k/uL (150-450); RBC 3.08 m/uL (4.30-5.90); WBC 9.1 k/uL (3.8-10.6)
[2017-10-23 06:53] LABS: ALT 48 U/L (21-72); AST 44 U/L (17-59); Albumin 3.4 g/dL (3.5-5.0); Alkaline Phosphatase 285 U/L (38-126); Blood Urea Nitrogen 19 mg/dL (9-20); Calcium 8.4 mg/dL (8.4-10.2); Carbon Dioxide 31 mmol/L (22-30); Glucose 102 mg/dL (74-99); Potassium 3.7 mmol/L (3.5-5.1); Sodium 141 mmol/L (137-145); Total Bilirubin 0.8 mg/dL (0.2-1.3); Total Protein 6.1 g/dL (6.3-8.2)
[2017-10-23 07:00] LABS: Anion Gap 14 mmol/L; Chloride 96 mmol/L (98-107)
[2017-10-23] MEDS ORDERED: POTASSIUM CHLORIDE ER 20 MEQ TAB.ER PO STA (07:05)
[2017-10-23 07:52] VITALS: TEMP 98.7
--- NOTE | 2017-10-23 07:57 | P.PN ---
Subjective Progress Note Date: 10/23/17 Principal diagnosis: Triple-vessel coronary artery disease. Totally occluded right coronary artery and left anterior descending artery. Mild to moderate left ventricular dysfunction on ventriculogram with EF 40-45%. Severe chronic obstructive pulmonary disease with preoperative FEV1 49% of predicted. Asthma. Obstructive sleep apnea. Hypertension. Hyperlipidemia. Previous tobacco dependence. Family history of coronary artery disease. Obesity. Preop nasal swab positive for MSSA. POD #7 elective triple coronary artery bypass grafting using the left internal mammary artery to the left anterior descending artery, reverse saphenous vein graft from the aorta to the posterior descending artery, reverse saphenous vein graft from the aorta to the second obtuse marginal artery. Endoscopic harvesting of the left greater saphenous vein. Intraoperative transesophageal echocardiogram and epi-aortic scanning. Intraoperative graft flow measurements using the [employer] system. Acute blood loss anemia, an expected outcome of surgery secondary to hemodilution and bypass pump. The patient is currently sitting up at the side of the bed in no acute distress. Denies pain except when coughing, controlled on current medications. Denies shortness of breath. Patient has no new complaints. Ambulated in the hallway yesterday. Objective - Vital Signs Vital signs: Vital Signs Temp 98.7 F 10/23/17 07:50 Pulse 116 H 10/23/17 07:50 Resp 18 10/23/17 07:50 BP 110/68 10/23/17 07:50 Pulse Ox 97 10/23/17 07:50 Intake & Output 10/22/17 10/23/17 10/23/17 18:59 06:59 18:59 Intake Total 1320 Balance 1320 Weight 99.2 kg 98.5 kg Intake: Oral 1320 Other: Voiding Method Urinal # Voids 2 2 ABP, PAP, CO, CI - Last Documented Arterial Blood Pressure 99/48 Pulmonary Artery Pressure 32/16 Cardiac Output 6.8 Cardiac Index 3.3 - Constitutional General appearance: Present: cooperative, no acute distress, obese - Respiratory Details: Lungs sounds diminished bilaterally. Respirations even, nonlabored. Currently on 2 L nasal cannula with oxygen saturation 97%. Able to achieve 1500 mL on his incentive spirometry. Strong cough. - Cardiovascular Details: S1, S2 present. Tachycardic but regular rate and rhythm, sinus tach on telemetry. Sternum stable. Palpable peripheral pulses bilaterally. Trace bilateral lower extremity edema present. No calf pain or tenderness noted. Heart hugger in place with patient demonstrating appropriate use. Antiembolism stockings, SCDs present. - Gastrointestinal Gastrointestinal Comment(s): Abdomen soft, nontender, nondistended. Active bowel sounds present 4 quadrants. Tolerating diet. Positive bowel movement. - Genitourinary Genitourinary Comment(s): Patient continues to void clear, yellow urine. - Integumentary Integumentary Comment(s): Skin is warm and dry with evidence of good perfusion. Anterior chest incision well approximated and covered with dry intact dressing. Left lower extremity EVH site well approximated. - Neurologic Neurologic: Present: CNII-XII intact - Musculoskeletal Musculoskeletal: Present: gait normal, strength equal bilaterally - Psychiatric Psychiatric: Present: A&O x's 3, appropriate affect, intact judgment & insight - Allied health notes Allied health notes reviewed: nursing - Labs CBC & Chem 7: 10/23/17 06:20 10/23/17 06:20 Labs: Abnormal Lab Results - Last 24 Hours (Table) 10/22/17 10/23/17 10/23/17 Range/Units 06:55 06:20 06:20 RBC 3.08 L (4.30-5.90) m/uL Hgb 8.2 L (13.0-17.5) gm/dL Hct 26.3 L (39.0-53.0) % RDW 16.0 H (11.5-15.5) % Chloride 95 L 96 L (98-107) mmol/L Carbon Dioxide 33 H 31 H (22-30) mmol/L Glucose 102 H (74-99) mg/dL Calcium 8.3 L (8.4-10.2) mg/dL Alkaline Phosphatase 283 H 285 H (38-126) U/L Total Protein 5.8 L 6.1 L (6.3-8.2) g/dL Albumin 3.3 L 3.4 L (3.5-5.0) g/dL - Imaging and Cardiology Chest x-ray: image reviewed Assessment and Plan (1) Triple vessel coronary artery disease Current Visit: Yes Status: Chronic Code(s): I25.10 - ATHSCL HEART DISEASE OF [place] CORONARY ARTERY W/O ANG PCTRS SNOMED Code(s): 730380220 (2) Hypertension Current Visit: Yes Status: Chronic Code(s): I10 - ESSENTIAL (PRIMARY) HYPERTENSION SNOMED Code(s): 88543585 (3) Hyperlipidemia Current Visit: Yes Status: Chronic Code(s): E78.5 - HYPERLIPIDEMIA, UNSPECIFIED SNOMED Code(s): 79178658 (4) COPD (chronic obstructive pulmonary disease) Current Visit: Yes Status: Chronic Code(s): J44.9 - CHRONIC OBSTRUCTIVE PULMONARY DISEASE, UNSPECIFIED SNOMED Code(s): 36331579 (5) Asthma Current Visit: Yes Status: Chronic Code(s): J45.909 - UNSPECIFIED ASTHMA, UNCOMPLICATED SNOMED Code(s): 198381701 (6) Obstructive sleep apnea Current Visit: Yes Status: Chronic Code(s): G47.33 - OBSTRUCTIVE SLEEP APNEA (ADULT) (PEDIATRIC) SNOMED Code(s): 48234856 (7) Tobacco dependence in remission Current Visit: No Status: Resolved Code(s): F17.201 - NICOTINE DEPENDENCE, UNSPECIFIED, IN REMISSION SNOMED Code(s): 397778103 (8) Family history of coronary artery disease Current Visit: Yes Status: Chronic Code(s): Z82.49 - FAMILY HX OF ISCHEM HEART DIS AND OTH DIS OF THE CIRC SYS SNOMED Code(s): 513689813 (9) Obesity (BMI 30-39.9) Current Visit: Yes Status: Chronic Code(s): E66.9 - OBESITY, UNSPECIFIED SNOMED Code(s): 392874994 Plan: 1. Continue low-dose aspirin, statin, Plavix, heparin subcu, beta emmanuel therapy. Will increase beta emmanuel therapy as tolerated. 2. EF 55-60% post bypass surgery. Aldactone and lisinopril discontinued. 3. Wean O2 as tolerated. Encourage incentive spirometry use 10 times every hour. 4. Encourage continued smoking cessation. 5. Will continue diuresis. 6. Bronchodilators per pulmonology. 7. Increase activity, ambulate as tolerated. PT/OT/cardiac rehab following. 8. Diabetic management per primary care service. 9. GI/DVT prophylaxis. 10. Will monitor daily labs, x-rays. No need for transfusion. 11. Pain management with ordered medications. 12. More recommendations to follow. Discharge planning in progress. Anticipate discharge to home with home care later today. Time with Patient: Greater than 30
[2017-10-23] MEDS: HEPARIN SODIUM,PORCINE 5,000 UNIT/ML 1 ML VIAL SQ SCH (07:58)
[2017-10-23] MEDS: ATORVASTATIN 40 MG TAB PO SCH (07:58)
[2017-10-23] MEDS: ASPIRIN 81 MG PO SCH (07:58)
[2017-10-23] MEDS: CLOPIDOGREL 75 MG TAB PO SCH (07:59)
[2017-10-23] MEDS: FUROSEMIDE 10 MG/ML 2 ML VIAL IV SCH (07:59)
[2017-10-23] MEDS: METOPROLOL TARTRATE 25 MG TAB PO SCH (08:00)
--- NOTE | 2017-10-23 08:12 | XR ---
EXAMINATION TYPE: XR chest 2V DATE OF EXAM: 10/23/2017 COMPARISON: 10/22/2017 HISTORY: Shortness of breath TECHNIQUE: Frontal and lateral views of the chest are obtained. FINDINGS: Small bilateral pleural effusions noted. Pulmonary venous congestion without overt failure. No focal infiltrate. Cardiomediastinal silhouette is stable. No pneumothorax seen. IMPRESSION: 1. Small bilateral pleural effusions.
[2017-10-23] MEDS: IPRATROPIUM-ALBUTEROL 3 ML NEB INHALATION SCH ×3 (08:48→15:56)
[2017-10-23 11:18] VITALS: BP 100/73; RESP 16
[2017-10-23 11:32] VITALS: PULSE 101
--- NOTE | 2017-10-23 11:48 | P.PN ---
Subjective Progress Note Date: 10/23/17 This is a 61-year-old gentleman who is status post coronary bypass grafting surgery. He was seen and examined this morning sitting up in his chair at bedside. Hemodynamically he is stable. Anticipating possible discharge home today. White blood cell count 9.1, hemoglobin 8.2, platelet count 329. Sodium 141, potassium 3.7, BUN 19, creatinine 0.8. Objective - Vital Signs Vital signs: Vital Signs Temp 98.7 F 10/23/17 07:50 Pulse 101 H 10/23/17 11:31 Resp 16 10/23/17 11:17 BP 100/73 10/23/17 11:17 Pulse Ox 96 10/23/17 11:17 Intake & Output 10/22/17 10/23/17 10/23/17 18:59 06:59 18:59 Intake Total 1320 360 Balance 1320 360 Weight 99.2 kg 98.5 kg Intake: Oral 1320 360 Other: Voiding Method Urinal # Voids 2 2 2 ABP, PAP, CO, CI - Last Documented Arterial Blood Pressure 99/48 Pulmonary Artery Pressure 32/16 Cardiac Output 6.8 Cardiac Index 3.3 - Exam PHYSICAL EXAMINATION: HEENT: Head is atraumatic, normocephalic. Pupils equal, round. Neck is supple. There is no elevated jugular venous pressure. HEART EXAMINATION: Heart S1, S2 normal. No murmur or gallop heard. CHEST EXAMINATION: Lungs are clear with mild diminished air entry to bilateral bases. ABDOMEN: Soft, nontender. Bowel sounds are heard. No organomegaly noted. EXTREMITIES: 2+ peripheral pulses with no evidence of peripheral edema and no calf tenderness noted. NEUROLOGIC patient is awake, alert and oriented -3. . - Labs CBC & Chem 7: 10/23/17 06:20 10/23/17 06:20 Labs: Abnormal Lab Results - Last 24 Hours (Table) 10/23/17 10/23/17 Range/Units 06:20 06:20 RBC 3.08 L (4.30-5.90) m/uL Hgb 8.2 L (13.0-17.5) gm/dL Hct 26.3 L (39.0-53.0) % RDW 16.0 H (11.5-15.5) % Chloride 96 L (98-107) mmol/L Carbon Dioxide 31 H (22-30) mmol/L Glucose 102 H (74-99) mg/dL Alkaline Phosphatase 285 H (38-126) U/L Total Protein 6.1 L (6.3-8.2) g/dL Albumin 3.4 L (3.5-5.0) g/dL Assessment and Plan Plan: Assessment and plan #1 status post coronary artery bypass grafting surgery #2 ischemic cardiomyopathy with documented ejection fraction of 40% #3 hypertension #4 hyperlipidemia #5 obstructive sleep apnea on BiPAP Plan From cardiology's perspective, patient may be able to be discharged home today. We will make him an appointment in the office post discharge. DNP note has been reviewed, I agree with a documented findings and plan of care. Patient was seen and examined.
--- NOTE | 2017-10-23 12:57 | P.DS ---
<Jazmín Montilla - Last Filed: 10/23/17 12:57> Providers Date of admission: 10/16/17 05:28 Expected date of discharge: 10/23/17 Attending physician: Sloan Odom Consults: 10/16/17 14:32 Consult Physician Routine Consulting Provider: Aidan Cary Consult Reason/Comments: Cloud Physicist Consult: post cardiac surgery Do you want consulting provider notified?: Yes Consult Physician Routine Consulting Provider: Sanjay Yates Consult Reason/Comments: medical managment Do you want consulting provider notified?: Yes Consult Physician Routine Consulting Provider: Marc Henson Consult Reason/Comments: [place] Consult: post cardiac surgery Do you want consulting provider notified?: Yes Primary care physician: Mathew Martinez - Discharge Diagnosis(es) (1) Triple vessel coronary artery disease Status: Chronic (2) Hypertension Status: Chronic (3) Hyperlipidemia Status: Chronic (4) COPD (chronic obstructive pulmonary disease) Status: Chronic (5) Asthma Status: Chronic (6) Obstructive sleep apnea Status: Chronic (7) Tobacco dependence in remission Status: Resolved (8) Family history of coronary artery disease Status: Chronic (9) Obesity (BMI 30-39.9) Status: Chronic Hospital Course: FINAL DIAGNOSIS: 1. Triple-vessel coronary artery disease, totally occluded right coronary artery and left anterior descending artery 2. Mild to moderate left ventricular dysfunction on ventriculogram with EF 40- 45%. Postoperative EF 55-60% per FRANKI. 3. Severe chronic obstructive pulmonary disease with preoperative FEV1 49% of predicted 4. Asthma 5. Obstructive sleep apnea 6. Hypertension 7. Hyperlipidemia 8. Previous tobacco dependence 9. Family history of coronary artery disease 10. Obesity 11. Preoperative nasal swab positive for MSSA 12. Postoperative acute blood loss anemia, expected outcome of surgery secondary to hemodilution and bypass pump PRINCIPAL PROCEDURE: 1. Elective triple coronary artery bypass grafting using the left internal mammary artery to the left anterior descending artery, reverse saphenous vein graft from the aorta to the posterior descending artery, reverse saphenous vein graft from the aorta to the second obtuse marginal artery 2. Endoscopic harvesting of the left greater saphenous vein 3. Intraoperative transesophageal echocardiogram 4. Epi-aortic scanning 5. Intraoperative graft flow measurements using the [employer]ist[employer] system HISTORY OF PRESENT ILLNESS: This is a 61-year-old gentleman who follows with Dr. Mathew Martinez on an outpatient basis. He presented to the emergency room in September 2017 with increasing dyspnea on exertion. As part as his workup he had a CT of the chest which demonstrated extensive coronary artery calcification. He followed with Dr. Henson in the office, had a stress test which was positive for anterior ischemia, and was recommended to undergo heart catheterization. His catheterization demonstrated 100% occluded LAD and RCA with 50% disease in the circumflex artery. Left ventriculogram at that time demonstrated an ejection fraction around 40-45%. He was referred to Dr. Odom from cardiothoracic surgery for the possibility of surgical revascularization. An extensive discussion was had with the patient and his family, risks and benefits were explained, and consent was obtained to proceed with surgery, and a surgery date was set. HOSPITAL COURSE: On 10/16/2017, the patient was brought to the hospital, taken to the preoperative area, prepared in the usual fashion, and subsequently taken to the operating room where Dr. Odom performed an elective triple coronary artery bypass grafting using the left internal mammary artery to the left anterior descending artery, reverse saphenous vein graft from the aorta to the posterior descending artery, reverse saphenous vein graft from the aorta to the second obtuse marginal artery, endoscopic harvesting of the left greater saphenous vein, intraoperative transesophageal echocardiogram, epi-aortic scanning, and intraoperative graft flow measurements using the [employer] system. Upon completion of surgery the patient was transferred to the cardiovascular intensive care unit where he was recovered, monitored hemodynamically, and where he progressed to cardiac rehabilitation phase 1. He was extubated, all lines, tubes, and drips were discontinued when appropriate, and he was transferred to [address] [place] [address] for further monitoring and rehabilitation. He did have an episode of postoperative acute blood loss anemia was treated with blood transfusion. His oxygen was titrated down, he continued to work with physical therapy, and he was ready to be discharged home on postoperative day #7 with [facility] to follow. He received written and verbal instruction regarding his medications, activity restrictions, signs and symptoms requiring position of the patient, and follow-up appointments. COMPLICATIONS: The patient experienced postoperative acute blood loss anemia which was treated accordingly. Patient Condition at Discharge: Stable Plan - Discharge Summary Discharge Rx Participant: Yes New Discharge Prescriptions: New Aspirin 81 mg PO DAILY #30 chew Atorvastatin [Lipitor] 40 mg PO DAILY #30 tab Clopidogrel [Plavix] 75 mg PO DAILY #30 tab Furosemide [Lasix] 40 mg PO DAILY 10 Days #10 tablet HYDROcodone/APAP 5-325MG [Alborn 5-325] 1 each PO Q6HR PRN 7 Days #30 tab PRN Reason: Moderate Pain Metoprolol Tartrate [Lopressor] 75 mg PO BID 30 Days tab Potassium Chloride ER [K-Dur 20] 20 meq PO BID 10 Days #20 tab Sennosides-Docusate Sodium [Senokot-S] 2 each PO HS tab Continue Albuterol Sulfate [Proair Hfa] 1 - 2 puff INHALATION RT-Q6H PRN PRN Reason: Shortness Of Breath Tiotropium Br/Olodaterol HCl [Stiolto Respimat Inhal [place]] 1 puff INHALATION RT-BID Lansoprazole [Prevacid] 30 mg PO DAILY PRN PRN Reason: Heartburn Discontinued Aspirin 324 mg PO DAILY Furosemide [Lasix] 20 mg PO DAILY PRN PRN Reason: Edema Verapamil Sr [Isoptin Sr] 240 mg PO DAILY Metoprolol Tartrate [Lopressor] 100 mg PO DAILY Atorvastatin [Lipitor] 80 mg PO PC-SUPPER Mupirocin 2% Nasal Oint [Bactroban 2% Nasal Oint] 1 applic NASAL BID Discharge Medication List Albuterol Sulfate [Proair Hfa] 1 - 2 puff INHALATION RT-Q6H PRN 09/07/17 [ History] Tiotropium Br/Olodaterol HCl [Stiolto Respimat Inhal [place]] 1 puff INHALATION RT -BID 09/07/17 [History] Lansoprazole [Prevacid] 30 mg PO DAILY PRN 10/03/17 [History] Aspirin 81 mg PO DAILY #30 chew 10/23/17 [Rx] Atorvastatin [Lipitor] 40 mg PO DAILY #30 tab 10/23/17 [Rx] Clopidogrel [Plavix] 75 mg PO DAILY #30 tab 10/23/17 [Rx] Furosemide [Lasix] 40 mg PO DAILY 10 Days #10 tablet 10/23/17 [Rx] HYDROcodone/APAP 5-325MG [Alborn 5-325] 1 each PO Q6HR PRN 7 Days #30 tab [Rx] Metoprolol Tartrate [Lopressor] 75 mg PO BID 30 Days tab 10/23/17 [Rx] Potassium Chloride ER [K-Dur 20] 20 meq PO BID 10 Days #20 tab 10/23/17 [Rx] Sennosides-Docusate Sodium [Senokot-S] 2 each PO HS tab 10/23/17 [Rx] Follow up Appointment(s)/Referral(s): Jazmín Montilla NPC [Nurse Practitioner] - 10/27/17 (Call to let me know your availability) Marc Henson MD [STAFF PHYSICIAN] - 11/06/17 3:00 pm (Monday) Sloan Odom MD [STAFF PHYSICIAN] - 11/17/17 11:30 am (Monday) Mathew Martinez MD [Primary Care Provider] - 10/27/17 9:30 am (Monday) [facility], [NON-STAFF] - Mary Ellen Toscano MD [STAFF PHYSICIAN] - 11/13/17 3:45 pm (Monday) Ambulatory/Diagnostic Orders: Complete Blood Count w/diff [LAB.AMB] Time Frame: 3 Days, Location: Determined By Patient Comprehensive Metabolic Panel [LAB.AMB] Time Frame: 3 Days, Location: Determined By Patient Patient Instructions/Handouts: Sternal Precautions (GEN), Coronary Artery Bypass Graft (DC) Activity/Diet/Wound Care/Special Instructions: DISCHARGE INSTRUCTIONS: 1. No driving for 4 weeks, or until physician gives their ok. 2. The patient should sleep in their own bed, no medical bed needed. 3. Stairs are not an issue. If the bedroom is upstairs, it is advised that the patient go up at night and down in the morning for the first week. Go slowly, using handrail and take 1 step at a time. 4. TANMAY hose are to be worn for 30 days or until physician discontinues. 5. Heart hugger is to be worn 100% of the time until physician discontinues.( except when showering) 6. No lifting, pushing, or pulling more than 10 pounds for 12 weeks. The physician will advise of any restriction changes. 7. The patient is expected to continue the prescribed walking program. 8. Continue pain control per as needed orders. 9. Continue with incentive spirometry and splinting/heart hugger until otherwise directed by the physician. 10. Must shower daily using liquid antibacterial soap and a separate white washcloth for each individual incision. 11. Routine sternal incision care. No powders, lotions, ointments on incisions. 12. Please call surgeon/EARLY INTERVENTIONIST for temp greater than 101 F or purulent drainage from incisions. 13. Narcotic medications were discussed with the patient, including the potential for misuse, addiction, and abuse. Opiod Start Talking form was reviewed with the patient. 14. All prescriptions given by surgeon for 30 days. Refills need to be filled through etched circuit processor/primary care physician. 15. A Red armband has been placed on the patient. It should be worn for 30 days post surgery and will be removed by the cardiac surgeons. If an ER visit is necessary, please make sure the number on the Red armband is called. HOME HEALTH SERVICES TO PROVIDE: RN SKILLED HOME CARE SERVICES FOR POST-OP SURGICAL PATIENTS WITH THE FOLLOWING: Coronary Artery Bypass Surgery (CABG), Mitral Valve Replacement/ Repair ( MVR), Aortic Valve Replacement/Repair (AVR) RN TO CONTINUE EDUCATION FROM ``ROAD TO A HEALTH HEART PATIENT EDUCATION MANUAL (GIVEN TO PATIENT IN THE HOSPITAL) MEDICATION RECONCILIATION WITH EDUCATION NEEDED ON FIRST HOME VISIT EMPHASIZE IMPORTANCE OF WEARING BREAST SUPPORT/HEART HUGGER ENCOURAGE USE OF INCENTIVE SPIROMETER 10 X EVERY HOUR WHILE AWAKE ENCOURAGE UTILIZATION OF LOWER EXTREMITY COMPRESSION STOCKINGS/TANMAY HOSE and ELEVATE LEGS ABOVE LEVEL OF HEART WHILE AT REST. ENCOURAGE AMBULATION 3-5x/day INCREASING TOLERATES, WHILE AVOID EXTREMES IN TEMPERATURE FREQUENCY: RN TO OPEN THE PATIENT WITHIN 24 HOURS OF DISCHARGE FROM THE HOSPITAL WITH TELEHEALTH INSTALLED AT [facility], RN TO VISIT 2-3 X A WEEK FOR 4 WEEKS ESTABLISHED BY PATIENT NEEDS. REMOVAL OF SUTURES: NURSING SERVICES TO REMOVE SUTURES TWO WEEKS POST SURGICAL DATE October 30, 2017. If any questions regarding suture removal please call the office at [phone]. LABORATORY: CBC, CMP TO BE DRAWN ON THE THIRD DAY HOME, 10/26/2017 (RAN STAT ) FAX RESULTS TO [phone]. TELEHEALTH PARAMETERS: WEIGHT: NOTIFY MD OF WEIGHT GAIN OF 2 LBS IN 24 HOURS OR 5 LBS IN ONE WEEK HR: NOTIFY MD OF HR <55 BPM OR HR>100 BPM BP: NOTIFY MD IF BP <90/55 OR BP>140/100 O2 SAT: NOTIFY MD IF PO2<93% ON ROOM AIR SEND TELEHEALTH REPORT TO STEEL RULE DIE MAKER AND CARDIOVASCULAR SURGEON THE FIRST WEEK OF CARE AND THEN BI-WEEKLY. PLEASE ADDITIONALLY COMMUNICATE ANY ABNORMALS AND NEW FINDINGS TO THE SURGEONS OFFICE. Discharge Disposition: HOME WITH HOME HEALTH SERVICES <Sloan Odom - Last Filed: 10/23/17 18:08> Hospital Course: Patient with persistent sinus tachycardia , on incremental BBlockers. The rate didn't change with blood transfusion. Will follow as an outpatient. Discussed with Dr Castillo.
--- NOTE | 2017-10-23 14:47 | P.PN ---
Subjective Progress Note Date: 10/23/17 Principal diagnosis: Symptomatic multivessel coronary artery disease, status post coronary artery bypass grafting, stop day #5 This is a 61-year-old white male with history of triple vessel coronary artery disease, totally occluded right coronary artery and left anterior descending artery, mild to moderate LV dysfunction with ejection fraction of 40-45%, history of severe COPD, FEV1 is in the range of 50%, history of obstructive sleep apnea, hypertension, previous history of smoking, patient underwent elective triple coronary artery bypass grafting using left internal mammary artery to the LAD, reverse saphenous vein graft to the posterior descending artery and reverse saphenous vein graft to the second obtuse marginal artery. Postoperatively, patient was on mechanical ventilation, I was notified about this patient last night, manage his ventilator, patient was extubated within a relatively short period of time after his surgery, however considering his ABG was marginal, patient was extubated to BiPAP, and today he was switched to a nasal cannula. Evaluated this morning, patient is relatively asymptomatic, his clinical course is progressing as expected, patient denies any shortness of breath. No chest pain. No nausea no vomiting no abdominal pain. Doing extremely well with incentive spirometry. And he is back on his bronchodilators. Reevaluated today on 10/18/2017, patient continues to do well, relatively asymptomatic, chest x-ray is reassuring. Patient is hemodynamically stable. Hemoglobin is a bit low at 7.1, and this is expected anemia secondary to blood loss secondary to surgery. Patient is now postoperative day #2. Patient is already ambulating in the hallway, and no specific complaints. Chest x-ray and labs were all reviewed. Reevaluated today on 10/19/2017, patient is postoperative day #3, doing great. Relatively asymptomatic. Hemoglobin is 6.9, no plans for blood transfusion at this point as per thoracic surgery. His basic metabolic profile is normal, and chest x-ray mostly significant for postoperative changes otherwise unremarkable. Reevaluated today on 10/20/2017, patient is postoperative day #4. Currently sitting in her recliner chair, in no distress, relatively asymptomatic, minimal pain, no shortness of breath no cough no wheezing. Doing well with incentive spirometry. On 10/21/2017 patient seen in follow-up on selective care unit. He sitting up in a chair, in no acute distress. His incentive spirometry effort today is 1500 , denies any worsening dyspnea, lung sounds are positive for diminished breath sounds bilaterally, patient has significant bilateral lower extremity edema, he is receiving diuretics per CT surgery. His FiO2 is at 2 L per nasal cannula with a pulse ox of 98%. He is afebrile, hemodynamically stable. Today's chest x-ray does stable findings, with minimal basilar atelectasis and possible small effusions. Lab work was reviewed, and shows no evidence of leukocytosis, today' s hemoglobin is 7.3, sodium is 139, potassium is 3.7, chloride is 97, carbon dioxide is 34, renal profile is within normal limits, with BUN of 18, creatinine 0.81. Alkaline phosphatase is up to 256 from 152. Patient's postop incisional sternal pain is reasonably controlled, patient has been ambulating, tolerating activity well. Sinus tachycardia on the monitor, patient is on beta emmanuel therapy. Continue nebulized bronchodilators continue current plan of treatment, anticipate discharge home possibly tomorrow. On 10/23/2017 patient seen in follow-up on selective care unit. He is calm and comfortable, denies any distress, currently on room air, O2 sat 96%, hemodynamically stable, lung sounds clear, diminished at the bases, no rhonchi or wheezes noted. Compliant with incentive spirometry, today's chest x-ray shows small bilateral pleural effusions. No acute issues overnight, midsternal incision is clean dry and intact, sternum stable. Bilateral lower extremity edema is somewhat improved, and CT surgery has been dosing patient's diuretics. His lab work has been reviewed, no leukocytosis, hemoglobin is 8.2, sodium is 141, potassium is 3.7, chloride is 96, CO2 level 31, renal profile is within normal limits. Patient remains stable, and he is awaiting discharge home today. Objective - Vital Signs Vital signs: Vital Signs Temp 98.7 F 10/23/17 07:50 Pulse 101 H 10/23/17 11:31 Resp 16 10/23/17 11:17 BP 100/73 10/23/17 11:17 Pulse Ox 96 10/23/17 11:17 Intake & Output 10/22/17 10/23/17 10/23/17 18:59 06:59 18:59 Intake Total 1320 720 Balance 1320 720 Weight 99.2 kg 98.5 kg Intake: Oral 1320 720 Other: Voiding Method Urinal # Voids 2 2 2 ABP, PAP, CO, CI - Last Documented Arterial Blood Pressure 99/48 Pulmonary Artery Pressure 32/16 Cardiac Output 6.8 Cardiac Index 3.3 - Exam Physical Exam: Revealed a 61-year-old white male in no distress. Head: Atraumatic normocephalic. HEENT: PERRLA, EOMI. [Neck is supple.] [No neck masses.] [No thyromegaly.] [No JVD.] Chest: [Diminished breath sounds at the bases, no crackles, no rhonchi, no wheezes.] No chest wall tenderness. Midsternal incision is clean dry and intact, sternum is stable Cardiac Exam: [Normal S1 and S2, no S3 gallop, 2/6 systolic murmur thought the precordium.] Abdomen: [Obese, Soft, nontender, no megaly, no rebound, no guarding, normal bowel sounds.] Extremities: [No clubbing. There is 2+ bilateral lower extremity edema noted, both lower extremities are Mckay wrapped, patient is receiving diuretics per CT surgery Neurological Exam: [No focal neurologic deficit.] Lymphatics: No lymphadenopathy. Psychiatric: Normal mood affect and mental status examination. - Labs CBC & Chem 7: 10/23/17 06:20 18 06:20 Labs: Abnormal Lab Results - Last 24 Hours (Table) 10/23/17 10/23/17 Range/Units 06:20 06:20 RBC 3.08 L (4.30-5.90) m/uL Hgb 8.2 L (13.0-17.5) gm/dL Hct 26.3 L (39.0-53.0) % RDW 16.0 H (11.5-15.5) % Chloride 96 L (98-107) mmol/L Carbon Dioxide 31 H (22-30) mmol/L Glucose 102 H (74-99) mg/dL Alkaline Phosphatase 285 H (38-126) U/L Total Protein 6.1 L (6.3-8.2) g/dL Albumin 3.4 L (3.5-5.0) g/dL Assessment and Plan Plan: Assessment: 1 status post CABG, for triple vessel coronary artery disease. postoperative day #7 2 ischemic cardiomyopathy and ejection fraction of 40%. 3 minimal postoperative atelectasis, expected. 4 history of COPD, Gold stage III FEV1 is in the range of 50%. 5 history of obstructive sleep apnea, on BiPAP. 6 essential hypertension 7 hyperlipidemia 8 obesity, BMI is 33.3 9 remote smoking history. Recommendation: Patient remains stable from pulmonary standpoint, no acute issues overnight, he is on room air, his CPAP at his home settings. Continue encouraging incentive spirometry use, ambulation. His anticipated to be discharged home today, we'll need follow-up with Dr. Toscano in the office within one week. I performed a history & physical examination of the patient and discussed their management with my nurse practitioner, Alma Meza. I reviewed the nurse practitioner's note and agree with the documented findings and plan of care. Lung sounds are positive for diminished breath sounds. The findings and the impression was discussed with the patient. I attest to the documentation by the nurse practitioner. Time with Patient: Less than 30
--- NOTE | 2017-10-24 06:28 | PN ---
PROGRESS NOTE DATE OF SERVICE: 10/23/2017 PRESENTING COMPLAINT: Coronary bypass. INTERVAL HISTORY: Patient is status post coronary bypass. Edema is coming down. Up and about in the hallway. Feeling better. No dizziness. No lightheadedness. Tolerating a diet. REVIEW OF SYSTEMS: Review of systems done for constitutional, cardiovascular, GI, pulmonary; relevant findings as above. CURRENT MEDICATIONS: Current medications are reviewed. PHYSICAL EXAMINATION: On examination, temperature 98.7, pulse 116, respirations 18, blood pressure 110/68, pulse ox 97% on 2 L. GENERAL APPEARANCE: Comfortable. EYES: Pupils equal. Conjunctivae pale. HENT: External appearance of nose and ears normal. Oral cavity normal. NECK: JVD not raised. Mass not palpable. RESPIRATORY: Effort normal. LUNGS: Decreased breath sounds. CARDIOVASCULAR: First and second sounds normal. Edema present. ABDOMEN: Soft, nontender. Liver and spleen not palpable. PSYCHIATRY: Alert and oriented x3. Mood and affect is normal. INVESTIGATIONS: White count 9.1, hemoglobin 8.2, potassium 3.7. ASSESSMENT: 1. Status post coronary bypass, chest tubes removed. 2. Ischemic cardiomyopathy, ejection fraction 40%. 3. Obstructive sleep apnea, uses a BiPAP. 4. Gastroesophageal reflux disease. 5. Chronic obstructive pulmonary disease in an ex-smoker. 6. Hypotension from blood loss anemia, recovered. 7. Hyperlipidemia. 8. Obesity; body mass index 33.3. 9. Acute postoperative blood loss anemia, expected from surgery. 10.Dilutional thrombocytopenia. 11.Hypoalbuminemia as an acute phase reactant. 12.Sinus tachycardia likely from anemia. PLAN: Overall patient doing much better. Care was discussed with him. Family was present. Questions were answered. Did talk to Jazmín from Cardiothoracic. Patient to follow up with Dr. Martinez after follow up with his cardiothoracic surgeon. MMODL / IJN: [id number] /
--- NOTE | 2017-10-24 13:15 | CDI ---
Last Revision, May 2017 Documentation Clarification Form Date: 10/24/17 From: Felisha Guillory Phone: If you have a question regarding this query, please contact Yazmin Mathis at [phone] between 8am and 5pm. Admit Date: 10/16/2017 5:28:00 AM Patient Name: Henry Robles Visit Number: [id number] Discharge Date: 10/23/17 ATTENTION: The Clinical Documentation Specialists (CDI) and [facility] Coding Staff appreciate your assistance in clarifying documentation. Please respond to the clarification below the line at the bottom and electronically sign. The CDI & [facility] Coding staff will review the response and follow-up if needed. Please note: Queries are made part of the Legal Health Record. If you have any questions, please contact the author of this message via ITS. Dr. Angie Byrne History of CHF is documented in your consult note and progress notes. History/Risk Factors: Patient was admitted for CAD and has a history of hypertension, obesity and hyperlipidemia. Clinical Indicators: Edema lower extremities. Vital signs: T. 98.1, P. 74 on admission then in the 100s periodically throughout the stay, R. 16, BP 141/84 Echocardiogram Results: Ejection fraction is 55-60% Chest X Ray: 10/16 Bilateral areas of infiltrate. 10/18 Mild cardiomegaly with mild central vascular congestions and small bilateral pleural effusions with associated patchy left basilar atelectasis all redemonstrated. 10/20 Bibasilar atelectasis versus edema or pneumonia and associated effusions. Stable cardiomegaly. 10/23 Small bilateral pleural effusions. Treatment: IV Lasix In your professional opinion, can you please clarify the acuity and type of CHF if known? Systolic Heart Failure: Acute Chronic Acute on Chronic Diastolic Heart Failure: Acute Chronic Acute on Chronic Systolic & Diastolic Heart Failure: Acute Chronic Acute on Chronic Heart Failure Unable to Determine Other, please specify MTDD
--- NOTE | 2017-11-01 13:04 | CDI ---
Last Revision, May 2017 Documentation Clarification Form Date: 11/01/17 From: Felisha Guillory Phone: If you have a question regarding this query, please contact Yazmin Mathis at [phone] between 8am and 5pm. Admit Date: 10/16/2017 5:28:00 AM Patient Name: Henry Robles Visit Number: [id number] Discharge Date: 10/23/17 ATTENTION: The Clinical Documentation Specialists (CDI) and [facility] Coding Staff appreciate your assistance in clarifying documentation. Please respond to the clarification below the line at the bottom and electronically sign. The CDI & [facility] Coding staff will review the response and follow-up if needed. Please note: Queries are made part of the Legal Health Record. If you have any questions, please contact the author of this message via ITS. Dr. Angie Byrne Thank you for signing your previous query. Please document a response before signing this query. History of CHF is documented in your consult note and progress notes. History/Risk Factors: Patient was admitted for CAD and has a history of hypertension, obesity and hyperlipidemia. Clinical indicators: Edema lower extremities. Vital signs: T. 98.1, P. 74 on admission then in the 100s periodically throughout the stay, R. 16, BP 141/84 Echocardiogram Results: Ejection fraction is 55-60% Chest X Ray: 10/16 Bilateral areas of infiltrate. 10/18 Mild cardiomegaly with mild central vascular congestions and small bilateral pleural effusions with associated patchy left basilar atelectasis all redemonstrated. 10/20 Bibasilar atelectasis versus edema or pneumonia and associated effusions. Stable cardiomegaly. 10/23 Small bilateral pleural effusions. Treatment: IV Lasix In your professional opinion, can you please clarify the acuity and type of CHF if known? Systolic Heart Failure: Acute Chronic Acute on Chronic Diastolic Heart Failure: Acute Chronic Acute on Chronic Systolic & Diastolic Heart Failure: Acute Chronic Acute on Chronic Heart Failure Unable to Determine Other, please specify MTDD
== END 2017-10-23 15:58 | disposition home health service (06) | DRG 236 ==
LOC: 2ORMAIN 05:28 → 6ICU 15:27 → 6SEL 10-20 14:47
PROVIDERS: ADMIT Surgery; ATTEND Surgery
PROC: 06BQ4ZZ Excision of Left Saphenous Vein, Percutaneous Endoscopic Approach (ICD-10-PCS; 2017-10-16)
PROC: 5A1221Z Performance of Cardiac Output, Continuous (ICD-10-PCS; 2017-10-16)
PROC: B24BZZ4 Ultrasonography of Heart with Aorta, Transesophageal (ICD-10-PCS; 2017-10-16)
PROC: 02100Z9 Bypass Coronary Artery, One Artery from Left Internal Mammary, Open Approach (ICD-10-PCS; principal; 2017-10-16 08:00)
PROC: 021109W Bypass Coronary Artery, Two Arteries from Aorta with Autologous Venous Tissue, Open Approach (ICD-10-PCS; 2017-10-16 08:00)
DX: I25.10 Atherosclerotic heart disease of native coronary artery without angina pectoris (principal); D62 Acute posthemorrhagic anemia; I31.3 Pericardial effusion (noninflammatory); J98.11 Atelectasis; D69.59 Other secondary thrombocytopenia; E66.9 Obesity, unspecified; E78.5 Hyperlipidemia, unspecified; E88.09 Other disorders of plasma-protein metabolism, not elsewhere classified; F17.201 Nicotine dependence, unspecified, in remission; G47.33 Obstructive sleep apnea (adult) (pediatric); I11.0 Hypertensive heart disease with heart failure; I25.5 Ischemic cardiomyopathy; I25.82 Chronic total occlusion of coronary artery; J44.9 Chronic obstructive pulmonary disease, unspecified; K21.9 Gastro-esophageal reflux disease without esophagitis; I95.9 Hypotension, unspecified; R00.0 Tachycardia, unspecified; I25.2 Old myocardial infarction; I65.23 Occlusion and stenosis of bilateral carotid arteries; I50.9 Heart failure, unspecified; Z68.33 Body mass index [BMI] 33.0-33.9, adult; Z79.82 Long term (current) use of aspirin; Z79.899 Other long term (current) drug therapy; Z90.49 Acquired absence of other specified parts of digestive tract; Z98.52 Vasectomy status; Z82.49 Family history of ischemic heart disease and other diseases of the circulatory system
CPT/HCPCS: 00000; 36415; 71045; 71046; 76937; 80053; 82330; 82805; 83735; 84132; 85025; 85027; 85520; 85610; 85730; 86850; 86891; 86900; 86901; 86920; 94002; 94640; 94660; 94760

== ENCOUNTER 2017-11-10 12:20 | Emergency (ER) | payer OTHER ==
[2017-11-10] MEDS ORDERED: SODIUM CHLORIDE 0.9% 500 ML IV STA (12:52)
--- NOTE | 2017-11-10 13:56 | ED ---
Abdominal Pain HPI - General Chief Complaint: Abdominal Pain Stated Complaint: Bowel Obstruction Time Seen by Provider: 11/10/17 12:44 Source: patient, RN notes reviewed Mode of arrival: ambulatory Limitations: no limitations - History of Present Illness Initial Comments: This is a 61-year-old male presents emergency Department with chief complaint of abdominal pain. Patient states she's had abdominal pain last week or so. Patient has been seen twice in urgent care in which she was initially diagnosed constipation was advise use a Fleet enema and MiraLAX. He states he did do that had a large bowel movement but continued to have some symptoms. Patient went back and saw PCP/urgent care and felt that there are still some stool as per: Region. Patient was sent here to rule out obstruction or mass. Patient reports no nausea vomiting. Patient states that he had recent open heart surgery on October [address] elise. Patient denies any chest pain or shortness breath. Patient states he only has some mild mid abdominal pain. Patient reports no fever no chills. - Related Data Home Medications Medication Instructions Recorded Confirmed Albuterol Sulfate [Proair Hfa] 1 - 2 puff INHALATION RT-Q6H PRN 09/07/17 Tiotropium Br/Olodaterol HCl 1 puff INHALATION RT-BID 09/07/17 11/10/17 [Stiolto Respimat Inhal [place]] Lansoprazole [Prevacid] 30 mg PO DAILY 10/03/17 11/10/17 Acetaminophen Tab [Tylenol Tab] 1,000 mg PO Q6HR PRN 11/10/17 11/10/17 Sennosides-Docusate Sodium 2 tab PO HS 11/10/17 11/10/17 [Senokot-S] Sulfamethox-Tmp 800-160Mg [Bactrim 1 tab PO Q12HR 11/10/17 11/10/17 DS 800-160 mg] Previous Rx's Medication Instructions Recorded Aspirin 81 mg PO DAILY #30 chew 10/23/17 Atorvastatin [Lipitor] 40 mg PO DAILY #30 tab 10/23/17 Clopidogrel [Plavix] 75 mg PO DAILY #30 tab 10/23/17 Furosemide [Lasix] 40 mg PO DAILY 10 Days #10 tablet 10/23/17 Metoprolol Tartrate [Lopressor] 75 mg PO BID 30 Days tab 10/23/17 Allergies Allergy/AdvReac Type Severity Reaction Status Date / Time codeine AdvReac Abdominal Verified 11/10/17 12:39 Pain Review of Systems ROS Statement: Those systems with pertinent positive or pertinent negative responses have been documented in the HPI. ROS Other: All systems not noted in ROS Statement are negative. Past Medical History Past Medical History: Asthma, Heart Failure, COPD, GERD/Reflux, Hyperlipidemia, Hypertension, Sleep Apnea/CPAP/BIPAP Additional Past Medical History / Comment(s): SOB with activity,uses cpap History of Any Multi-Drug Resistant Organisms: None Reported Past Surgical History: Appendectomy, Heart Catheterization, Hernia Repair Additional Past Surgical History / Comment(s): vasectomy Past Anesthesia/Blood Transfusion Reactions: No Reported Reaction Past Psychological History: Anxiety Smoking Status: Former smoker Past Alcohol Use History: None Reported Past Drug Use History: None Reported - Past Family History Mother Family Medical History: No Reported History Father Family Medical History: Cancer Additional Family Medical History / Comment(s): lung General Exam Limitations: no limitations General appearance: alert, in no apparent distress Head exam: Present: atraumatic, normocephalic, normal inspection Neck exam: Present: normal inspection. Absent: tenderness, meningismus, lymphadenopathy Respiratory exam: Present: normal lung sounds bilaterally, chest wall tenderness , other (Healing sternal incision). Absent: respiratory distress, wheezes, rales, rhonchi, stridor Cardiovascular Exam: Present: regular rate, normal rhythm, normal heart sounds. Absent: systolic murmur, diastolic murmur, rubs, gallop, clicks GI/Abdominal exam: Present: soft, tenderness (Mild mid), normal bowel sounds. Absent: distended, guarding, rebound, rigid Back exam: Absent: CVA tenderness (R), CVA tenderness (L) Skin exam: Present: warm, dry, intact, normal color. Absent: rash Course Vital Signs 11/10/17 11/10/17 11/10/17 12:25 14:13 15:12 Temperature 98.4 F Pulse Rate 89 91 90 Respiratory 18 20 18 Rate Blood Pressure 115/79 113/68 115/77 O2 Sat by Pulse 96 98 98 Oximetry Medical Decision Making - Medical Decision Making 61-year-old male present emergency department for abdominal pain, rule out obstruction. Patient did have CT which shows evidence of thickening of the rectum. Patient will direct visualization and biopsy. Case discussed with on- call surgeon Dr. Joshi in which the patient will follow-up Monday for bowel prep and schedule of colonoscopy. Patient's cardiothoracic PA was updated on results here. Patient is stable for discharge. - Lab Data Result diagrams: 11/10/17 13:30 11/10/17 13:30 Lab Results 11/10/17 11/10/17 11/10/17 Range/Units 13:30 13:30 13:30 WBC 4.5 (3.8-10.6) k/uL RBC 3.91 L (4.30-5.90) m/uL Hgb 9.8 L (13.0-17.5) gm/dL Hct 32.4 L (39.0-53.0) % MCV 82.9 (80.0-100.0) fL MCH 25.1 (25.0-35.0) pg MCHC 30.3 L (31.0-37.0) g/dL RDW 16.0 H (11.5-15.5) % Plt Count 345 (150-450) k/uL Neutrophils % 65 % Lymphocytes % 19 % Monocytes % 10 % Eosinophils % 4 % Basophils % 1 % Neutrophils # 3.0 (1.3-7.7) k/uL Lymphocytes # 0.9 L (1.0-4.8) k/uL Monocytes # 0.5 (0-1.0) k/uL Eosinophils # 0.2 (0-0.7) k/uL Basophils # 0.0 (0-0.2) k/uL Hypochromasia Marked Poikilocytosis Slight Anisocytosis Slight PT 11.5 (9.0-12.0) sec INR 1.2 H (<1.2) APTT 21.1 L (22.0-30.0) sec Sodium 140 (137-145) mmol/L Potassium 4.2 (3.5-5.1) mmol/L Chloride 100 (98-107) mmol/L Carbon Dioxide 27 (22-30) mmol/L Anion Gap 13 mmol/L BUN 13 (9-20) mg/dL Creatinine 0.80 (0.66-1.25) mg/dL Est GFR (CKD-EPI)AfAm >90 (>60 ml/min/1.73 sqM) Est GFR (CKD-EPI)NonAf >90 (>60 ml/min/1.73 sqM) Glucose 96 (74-99) mg/dL Calcium 8.9 (8.4-10.2) mg/dL Total Bilirubin 0.6 (0.2-1.3) mg/dL AST 24 (17-59) U/L ALT 32 (21-72) U/L Alkaline Phosphatase 145 H (38-126) U/L Total Protein 6.9 (6.3-8.2) g/dL Albumin 3.7 (3.5-5.0) g/dL Amylase 43 (30-110) U/L Lipase 48 (23-300) U/L Disposition Clinical Impression: Abdominal pain, Colon abnormality Disposition: HOME SELF-CARE Condition: Stable Instructions: Abdominal Pain (ED) Additional Instructions: Follow-up with on-call surgery as directed.Please return to the Emergency Department if symptoms worsen or any other concerns. Is patient prescribed a controlled substance at d/c from ED?: No Referrals: Mathew Martinez MD [Primary Care Provider] - 1-2 days Kenny Joshi DO [Doctor of Osteopathic Medicine] - 1-2 days Time of Disposition: 15:33
[2017-11-10 14:08] LABS: ALT 32 U/L (21-72); AST 24 U/L (17-59); Albumin 3.7 g/dL (3.5-5.0); Alkaline Phosphatase 145 U/L (38-126); Amylase 43 U/L (30-110); Anion Gap 13 mmol/L; Blood Urea Nitrogen 13 mg/dL (9-20); Calcium 8.9 mg/dL (8.4-10.2); Carbon Dioxide 27 mmol/L (22-30); Chloride 100 mmol/L (98-107); Glucose 96 mg/dL (74-99); Lipase 48 U/L (23-300); Potassium 4.2 mmol/L (3.5-5.1); Sodium 140 mmol/L (137-145); Total Bilirubin 0.6 mg/dL (0.2-1.3); Total Protein 6.9 g/dL (6.3-8.2)
[2017-11-10 14:13] LABS: INR 1.2 (<1.2); Partial Thromboplastin Time 21.1 sec (22.0-30.0); Prothrombin Time 11.5 sec (9.0-12.0)
[2017-11-10 14:14] LABS: Anisocytosis Slight; Basophils % (A) 1 %; Eosinophils # (A) 0.2 k/uL (0-0.7); Eosinophils % (A) 4 %; HCT 32.4 % (39.0-53.0); HGB 9.8 gm/dL (13.0-17.5); Hypochromasia Marked; Lymphocytes # (A) 0.9 k/uL (1.0-4.8); Lymphocytes % (A) 19 %; MCH 25.1 pg (25.0-35.0); MCHC 30.3 g/dL (31.0-37.0); MCV 82.9 fL (80.0-100.0); Mean Platelet Volume 7.4; Monocytes # (A) 0.5 k/uL (0-1.0); Monocytes % (A) 10 %; Neutrophils % (A) 65 %; Platelet Count 345 k/uL (150-450); Poikilocytosis Slight; RBC 3.91 m/uL (4.30-5.90); WBC 4.5 k/uL (3.8-10.6)
--- NOTE | 2017-11-10 15:03 | CT ---
EXAMINATION TYPE: CT abdomen pelvis w con DATE OF EXAM: 11/10/2017 COMPARISON: NONE INDICATION: bowel obstruction, constipation DLP: 1187.4 mGycm, Automated exposure control for dose reduction was used. CONTRAST: 100 mL of Isovue 300. Study performed without Oral Contrast TECHNIQUE: Axial images were obtained from above the diaphragm to the pubic rami in the axial plane a t 5 mm thick sections. Reconstructed images are reviewed on the computer in the coronal plane. FINDINGS: Limited CT sections are obtained the lung bases. There is a small left pleural effusion. Minimal rig ht pleural effusion is present. Compressive atelectasis is adjacent to the left pleural effusion and in the dependent portion of the right lung base.. Mild pericardial effusion is present. CT ABDOMEN: Liver: Normal Spleen: Normal Pancreas: Normal Adrenal glands: Right adrenal gland is thickened 1.9 cm. There is diffuse mild thickening of the left adrenal gland measuring 1.2 cm. Gallbladder: Normal Kidneys: No masses are evident. No hydronephrosis is present. There is a 1.3 cm cyst measuring 34 H ounsfield units on the right mid kidney. Follow-up ultrasound is recommended. Delayed images were ob tained through the kidneys, which remain unremarkable. Aorta: Vascular calcification is within the aorta. Inferior vena cava: Normal. CT PELVIS: Loops of bowel within the abdomen and pelvis are normal. There are loops of bowel which are incom pletely distended or lack oral contrast limiting their evaluation. Significant fecal retention is not evident. There is thickening at the rectum. Clinical correlation is recommended. Appendix: Not identified. No suspicious inflammatory changes are evident. Urinary bladder: Normal. Genitourinary structures: Prostate is slightly prominent. Osseous structures: No suspicious lytic or sclerotic lesions. IMPRESSIONS: 1. Diffuse thickening of the rectum. Underlying neoplasm should be considered. Additional workup is recommended. 2. No significant fecal retention to suggest constipation. 3. Cyst on the right ovary. This may not be a simple cyst. Additional evaluation with ultrasound is r ecommended. 4. Thickening of the bilateral adrenal glands discussed above. 5. Minimal right pleural effusion and small left pleural effusion. Mild pericardial effusion is also present.
[2017-11-10 15:14] VITALS: BP 115/77; PULSE 90; RESP 18
[2017-11-10 15:45] VITALS: TEMP 98.1
== END 2017-11-10 15:57 | disposition home or self-care (01) ==
LOC: EC 12:20
DX: K63.9 Disease of intestine, unspecified (principal); R10.9 Unspecified abdominal pain; K62.89 Other specified diseases of anus and rectum; J44.9 Chronic obstructive pulmonary disease, unspecified; K21.9 Gastro-esophageal reflux disease without esophagitis; G47.30 Sleep apnea, unspecified; Z87.891 Personal history of nicotine dependence; Z79.899 Other long term (current) drug therapy; Z88.5 Allergy status to narcotic agent; Z99.89 Dependence on other enabling machines and devices; Z90.49 Acquired absence of other specified parts of digestive tract; Z98.890 Other specified postprocedural states; Z95.5 Presence of coronary angioplasty implant and graft
CPT/HCPCS: 36415; 80053; 82150; 83690; 85025; 85610; 85730; 74177; 99284; 96360; Q9967

== ENCOUNTER → 2018-03-27 | Outpatient (CLI) | payer OTHER ==
[2018-03-27 10:57] LABS: Anisocytosis Slight; Basophils % (A) 1 %; Eosinophils # (A) 0.2 k/uL (0-0.7); Eosinophils % (A) 4 %; HGB 13.3 gm/dL (13.0-17.5); Lymphocytes # (A) 1.3 k/uL (1.0-4.8); Lymphocytes % (A) 23 %; MCH 27.4 pg (25.0-35.0); MCHC 32.5 g/dL (31.0-37.0); MCV 84.4 fL (80.0-100.0); Mean Platelet Volume 6.8; Microcytosis Slight; Monocytes # (A) 0.4 k/uL (0-1.0); Monocytes % (A) 6 %; Neutrophils # (A) 3.7 k/uL (1.3-7.7); Neutrophils % (A) 65 %; Platelet Count 200 k/uL (150-450); RBC 4.85 m/uL (4.30-5.90); RDW 17.7 % (11.5-15.5); WBC 5.7 k/uL (3.8-10.6)
[2018-03-27 16:09] LABS: Albumin 4.4 g/dL (3.80-4.90); Albumin/Globulin Ratio 1.69 (1.20-2.10); Anion Gap 7.4 mmol/L (4.00-12.00); Carbon Dioxide 30.6 mmol/L (21.6-31.8); Globulin 2.6 g/dL (2.1-3.7); LDL Cholesterol,Calculated 67.2 mg/dL (0.0-131.0); Potassium 4.2 mmol/L (3.5-5.5); Total Bilirubin 0.5 mg/dL (0.2-1.2)
[2018-03-27 16:10] LABS: Iron Saturation 18.64 (15.00-50.00)
[2018-03-27 16:40] LABS: Prostate Specific Antigen 0.3 ng/mL (0.0-4.5)
[2018-03-27 20:34] LABS: Hemoglobin A1C 5.9 % (4.0-6.0)
[2018-03-28 07:02] LABS: VLDL Calculation 18.8 mg/dL (5.00-40.00)
== END ==
LOC: LABWHC1 09:25
PROVIDERS: ATTEND Internal Medicine Interventional Cardiology
DX: E78.5 Hyperlipidemia, unspecified (principal); D63.1 Anemia in chronic kidney disease; B18.9 Chronic viral hepatitis, unspecified; Z12.5 Encounter for screening for malignant neoplasm of prostate
CPT/HCPCS: 36415; 80053; 80061; 82550; 82728; 83036; 83540; 83550; 84153; 85025

== ENCOUNTER → 2018-07-24 | Outpatient (CLI) | payer OTHER ==
--- NOTE | 2018-07-24 11:23 | US ---
EXAMINATION TYPE: US chest DATE OF EXAM: 07/24/2018 COMPARISON: NONE CLINICAL HISTORY: J90 pleural effusion. Pleural effusion TECHNIQUE: Targeted ultrasound of the posterior lower bilateral hemithoraces EXAM MEASUREMENTS: Right Pleural Effusion pocket size: 0.5 cm Right skin surface to fluid distance: 2.9 cm Left Pleural Effusion pocket size: 0.8 cm Left skin surface to fluid distance: 3.5 cm Right side NOT MARKED for possible thoracentesis outside the dept. Left side NOT MARKED for possible thoracentesis outside the dept. Pulmonologists are able to review the images in the patient?s EMR. IMPRESSIONS: Trace pleural effusions, insufficient for safe thoracentesis.
== END ==
LOC: RADUSWWP 11:03
PROVIDERS: ATTEND Family Medicine
DX: J90 Pleural effusion, not elsewhere classified (principal)
CPT/HCPCS: 76604

== ENCOUNTER → 2019-03-04 | Outpatient (CLI) | payer OTHER ==
--- NOTE | 2019-03-06 09:04 | CT ---
EXAMINATION TYPE: CT chest wo con DATE OF EXAM: 03/04/2019 COMPARISON: 09/09/2017 HISTORY: 63-year-old male Lung nodules. TECHNIQUE: Contiguous axial scanning of the chest without IV contrast. Coronal and sagittal reconstru ctions performed. CT DLP: 602.2 mGycm Automated exposure control for dose reduction was used. FINDINGS: Median sternotomy wires with post-CABG changes. Aorta normal caliber with conventional arch vessel branching anatomy. Minimal atherosclerotic arch ca lcifications are present. No thoracic lymphadenopathy by CT size criteria. Mild bilateral gynecomastia. Evaluation of the lungs show some mild strandy atelectasis or scarring at the lung bases without cons olidation or pleural effusion. A 4 mm right mid lung pulmonary nodules unchanged from 09/09/2017 compat ible with a benign etiology. Visualized upper abdomen shows a tiny hiatal hernia. There is a stable 2.5 cm low-density nodule in t he right adrenal gland with attenuation of -7 Hounsfield units compatible with a lipid rich adrenal a denoma. Similar lesser degree of nodularity left adrenal gland at 1.7 cm. Bones: Mild degenerative disc disease in the thoracic spine. IMPRESSION: POST CABG CHANGES. STABLE STRANDY SCARRING OR ATELECTASIS AT THE LUNG BASES AND BENIGN 4 MM RIGHT MID LUNG PULMONARY NODULE. FINDINGS SUGGEST BENIGN BILATERAL LIPID RICH ADRENAL ADENOMAS MEASURING 2.5 CM ON THE RIGHT AND 1.7 C M ON THE LEFT.
== END | disposition home or self-care (01) ==
LOC: RADCTMAIN 15:17
PROVIDERS: ATTEND Family Medicine
DX: R91.8 Other nonspecific abnormal finding of lung field (principal); Z95.1 Presence of aortocoronary bypass graft
CPT/HCPCS: 71250

== ENCOUNTER → 2021-08-02 | Outpatient (CLI) | payer MEDICARE, OTHER ==
--- NOTE | 2021-08-02 09:04 | CT ---
EXAMINATION TYPE: CT chest wo con DATE OF EXAM: 08/02/2021 INDICATION: lung nodule CT DLP: 600.1 mGy.cm Automated Exposure Control for Dose Reduction was Utilized. TECHNIQUE AND CONTRAST: Multiplanar CT scan of the chest without IV contrast administration. COMPARISON: CT dated 03/04/2019 FINDINGS: Stable 3 mm nodule at the inferior aspect of the right upper lobe. Minimal linear millimetric densiti es are seen at the anterolateral aspect of the left lower lobe, also stable. A tiny nodule is seen in the left lung base measuring 2 mm, stable. Unchanged small lingular atelectasis. No suspicious or pr ogressive lung lesion. Patent trachea and main bronchi. No pleural or pericardial effusion. Post CABG changes with sternotomy wire sutures. No gross cardiomegaly. Scattered arterial atheroscler otic calcifications. No pathologically enlarged lymph nodes in the chest. Bilateral adrenal adenomas measuring up to 2.7 cm on the right side compared to 2.5 cm previously and 2.2 cm on the left side co mpared to 1.7 cm previously. Questionable minimal gynecomastia changes. No aggressive bone lesion. IMPRESSION: Stable scattered pulmonary nodules consistent with benign nodules and requiring no further follow-up. No new suspicious or progressive lung lesion. Other interval changes and incidental findings as desc ribed above. Should the patient be considered for annual lung screening?
== END | disposition home or self-care (01) ==
LOC: RADCTMAIN 06:34
PROVIDERS: ATTEND Family Medicine
DX: R91.8 Other nonspecific abnormal finding of lung field (principal)
CPT/HCPCS: 71250

== ENCOUNTER → 2021-08-04 | Outpatient (CLI) | payer OTHER ==
--- NOTE | 2021-08-04 07:53 | US ---
EXAMINATION TYPE: US duplex aorta DATE OF EXAM: 08/04/2021 COMPARISON: NONE CLINICAL HISTORY: Z13.6 SCREENING FOR CARDIOVASCULAR DISORDERS. screening EXAM MEASUREMENTS: Abdominal Aorta: Proximal: obscured Mid: 2.3 x 1.8cm Distal: 2.2 x 1.6cm Bifurcation: RT: 1.1 x 0.9cm LT: 1.2 x 1.0cm *technical limitations due to large amount of overlying bowel content. no evidence of AAA at this shu e as visualized IMPRESSION: No evidence for AAA at this time.
== END | disposition home or self-care (01) ==
LOC: RADUSWWP 07:20
PROVIDERS: ATTEND Family Medicine
DX: Z13.6 Encounter for screening for cardiovascular disorders (principal)
CPT/HCPCS: 93979

== ENCOUNTER 2023-08-18 10:11 | Day surgery (SDC) | payer MEDICARE ==
[2023-08-17 08:51] VITALS: BMI 34.3
[2023-08-18] MEDS: LACTATED RINGERS 1,000 ML IV SCH (10:30)
[2023-08-18 11:13] VITALS: TEMP 98.1
[2023-08-18] MEDS ORDERED: LIDOCAINE 1% INJ 10MG/ML (20 ML MDV) ONE (11:25)
[2023-08-18] MEDS ORDERED: PROPOFOL 10 MG/ML 20 ML VIAL IV ONE (11:25)
--- NOTE | 2023-08-18 11:39 | P.PCN ---
Date of Procedure: 08/18/23 Procedure(s) Performed: BRIEF HISTORY: Patient is a 67-year-old pleasant white male scheduled for an elective colonoscopy as a part of evaluation of prior history of colon polyps. His last colonoscopy was 4 years ago. PROCEDURE PERFORMED: Colonoscopy with snare polypectomy. PREOPERATIVE DIAGNOSIS: History of colon polyps. IV sedation per Anesthesia. PROCEDURE: After informed consent was obtained, the patient, was brought into the endoscopy unit. IV sedation was administered by Anesthesia under continuous monitoring. Digital rectal examination was normal. Initially the Olympus CF-160 flexible video colonoscope was then inserted in the rectum, gradually advanced into the cecum without any difficulty. Careful examination was performed as the scope was gradually being withdrawn. Ileocecal valve and the appendiceal orifice were visualized and appeared normal. Prep was excellent. Mucosa of the cecum, had a 7-8 mm sessile cecal polyp removed by cold snare polypectomy. In the hepatic flexure there was a 5 mm polyp removed by cold snare polypectomy. Rest of the ascending colon, transverse colon, descending colon, sigmoid colon, and rectum appeared normal. Scattered sigmoid diverticulosis. Retroflexion was performed in the rectum and no lesions were seen. The patient tolerated the pr ocedure well. IMPRESSION: 7-8 mm cecal polyp status post cold snare polypectomy 5 mm hepatic flexure polyp status post cold snare polypectomy Scattered sigmoid diverticulosis RECOMMENDATIONS: Findings of this examination were discussed with the patient as well as his family. He was advised to follow with the biopsy results. If the biopsy results adenoma he can have a repeat colonoscopy in 5 years..
[2023-08-18 12:34] VITALS: BP 120/77; PULSE 78; RESP 16
== END 2023-08-18 12:24 | disposition home or self-care (01) ==
LOC: ORWHC2ENDO 10:11
PROVIDERS: ATTEND Internal Medicine Gastroenterology
DX: Z12.11 Encounter for screening for malignant neoplasm of colon (principal); D12.0 Benign neoplasm of cecum; D12.3 Benign neoplasm of transverse colon; K57.30 Diverticulosis of large intestine without perforation or abscess without bleeding; I11.0 Hypertensive heart disease with heart failure; I50.9 Heart failure, unspecified; E78.5 Hyperlipidemia, unspecified; J44.9 Chronic obstructive pulmonary disease, unspecified; G47.33 Obstructive sleep apnea (adult) (pediatric); K21.9 Gastro-esophageal reflux disease without esophagitis; Z79.01 Long term (current) use of anticoagulants; Z90.49 Acquired absence of other specified parts of digestive tract; Z98.890 Other specified postprocedural states; Z79.51 Long term (current) use of inhaled steroids; Z86.010 Personal history of colon polyps; Z79.82 Long term (current) use of aspirin; Z88.5 Allergy status to narcotic agent; Z79.899 Other long term (current) drug therapy
CPT/HCPCS: 88305; 45385; J2001; J2704